=== PATIENT | female | born 1990 | race Caucasian/White ===

== ENCOUNTER → 2017-07-18 11:41 | Outpatient (CLI) | payer MEDICAID, SELFPAY ==
[2017-07-18 13:44] LABS: Color, Urine Yellow (Yellow); Glucose, Dipstick Normal (Normal); Ketone-Dipstick Negative (Negative); Leukocyte Esterase-Dipstick Negative /ul (Negative); Nitrite-Dipstick Negative (Negative); Occult Blood-Urine 10 /ul (Negative); Protein-Dipstick Negative (Negative); Urine Bilirubin Dipstick Negative (Negative); Urine Clarity Sl. Cloudy (Clear); Urine Urobilinogen Normal (Normal)
[2017-07-18 14:00] LABS: Amphetamine Urine VISTA NEGATIVE (<1000 ng/mL); Barbiturate Urine VISTA NEGATIVE (< 200 ng/mL); Benzodiazepine Urine VISTA NEGATIVE (< 200 ng/mL); Cocaine Urine VISTA NEGATIVE (< 300 ng/mL); Ecstacy Urine VISTA NEGATIVE (< 500 ng/mL); Methadone Urine VISTA NEGATIVE (< 300 ng/mL); PCP Urine VISTA NEGATIVE (< 25 ng/mL); THC Urine VISTA NEGATIVE (< 50 ng/mL); Vista UDS pH Range 6
[2017-07-18 14:21] LABS: COTININE Drug Screen Negative (<200 ng/mL)
[2017-07-18 17:02] LABS: Absolute Lymphocyte Count 3.49 X10^3/ul (0.83-4.51); Absolute Neutrophil Count 6.9 X10^3/uL (2.0-7.7); Basophil# 0.03 X10^3/uL; Basophil% 0.3 % (0-1); Eosinophil# 0.08 X10^3/uL; Eosinophils% 0.7 % (0-5); Hematocrit 40.7 % (37-47); Hemoglobin 14.1 g/dl (12.0-15.0); Lymphocyte # 3.49 X10^3/ul (4.0); Lymphocyte % 30.7 % (19-41); Mean Corp Hgb Conc 34.6 g/gl (32-36); Mean Corpuscular Hgb 31.8 pg (27.0-32.0); Mean Corpuscular Volume 91.7 fL (81-99); Mean Platelet Vol. 11.6 fl (6.2-12.0); Monocyte# 0.79 X10^3/uL; Neutrophil # 6.88 X10^3/uL (2.7-7.7); Neutrophil % 60.6 % (47-70); Platelet Count 288 K/mm3 (150-450); RBC Distribution Width CV 12.7 % (11.6-14.6); RBC Distribution Width SD 41.5 fl (35.1-43.9); Red Blood Count 4.44 M/mm3 (4.2-5.4); White Blood Count 11.4 K/mm3 (4.4-11.0)
[2017-07-18 17:06] LABS: POSITIVE COUNT NO; POSITIVE DIFFERENTIAL NO; POSITIVE MORPHOLOGY NO
[2017-07-18 17:24] LABS: ALB/GLOB Ratio 0.8 RATIO (0.9-2.4); AST(SGOT) 14 U/L (15-37); Alanine Aminotransfer ALT/SGPT 19 U/L (12-78); Albumin, Serum 3.2 g/dL (3.4-5.0); Alkaline Phosphatase 72 U/L (45-117); Anion Gap 10 (5-15); BUN 7 mg/dL (7-18); BUN/Creat Ratio 13.9 RATIO (10-20); Calcium,Total 8.9 mg/dL (8.5-10.1); Chloride 105 mmol/L (98-107); EST Glomerular Filtration Rate 159 mL/min (>60); Est Glom Filt Rate - Afr Amer 192 mL/min (>60); Glucose 78 mg/dL (70-110); Potassium 3.9 mmol/L (3.5-5.1); Protein, Total 7.2 g/dL (6.4-8.2); Sodium Level 136 mmol/L (136-145); Thyroid Stim Hormone (TSH) 1.72 uIU/mL (0.358-3.74)
[2017-07-18 17:26] LABS: Hemoglobin A1c 5.7 % (4.2-6.3)
[2017-07-18 18:12] LABS: HIV - WCH Non-Reactive (Nonreactive); Vitamin D,25 Hydroxy 12.4 ng/mL
[2017-07-18 18:20] LABS: Chlamydia Trachomatis by PCR Negative (Negative); Neisserai gonorrhoeae by PCR Negative (Negative); Probe Check PASS; Sample Adequacy Control PASS; Specimen Processing Control PASS
[2017-07-22 10:31] LABS: HEPATITIS B SURFACE AG Negative (Negative); Hep C Antibodies 0.1 s/co ratio (0.0-0.9)
[2017-07-25 03:55] LABS: Prenatal RPR NONREACTIVE (NONREACTIVE)
== END ==
PROVIDERS: Visit Provider Obstetrics & Gynecology
DX: Z34.81 Encounter for supervision of other normal pregnancy, first trimester (principal)
CPT/HCPCS: 36415; 80053; 80307; 81002; 82306; 83036; 84443; 85025; 86703; 86762; 86803; 87340; 87491; 87591

== ENCOUNTER 2017-07-31 04:13 | Emergency (ER) | payer MEDICAID, SELFPAY ==
[2017-07-31 04:14] VITALS: BP 144/103; PULSE 100; RESP 16; TEMP 36.4; O2SAT 100; BMI 41.3
--- NOTE | 2017-07-31 04:30 | ED.DCSUM_ITS ---
- ER Visit Summary Date of Service: 07/31/17 Chief Complaint: Left flank pain History of Present Illness: The patient is a 26 F who is 12-13 weeks, woke up in the middle of the night to urinate, and had the sudden onset of left flank pain followed by nausea/vomiting. The pain has been colicky. Less than 1 hour. No urinary symptoms otherwise. No diarrhea. No recent vaginal bleeding or discharge. Never had this before. No recent injury or trauma. Pain radiates into the left groin. Has already had 2 ultrasounds verifying that this is intrauterine. Physical Examination: Uncomfortable, in painful distress, standing at the bedside hunched over onto the bed. Vital signs are unremarkable except for hypertension. Mild left CVA tenderness. Mild left mid abdominal tenderness otherwise benign. No pelvic tenderness, although that is where she is holding. Test Results: Urinalysis shows 250 blood, negative nitrite, 25 leukocyte esterase, with 10-25 red blood cells and 5-10 white blood cells. Emergency Department Course and Treatment: Her sudden onset of severe colicky flank pain radiating into the groin and presence of mostly blood in the urine is classic for ureterolithiasis. Given that she is , and ultrasound is not available at this time, no imaging performed. Diagnosis is made clinically. Avoiding NSAIDs given her . Given morphine, it took the edge off but she was still in pain so she was amenable to another dose. Supportive care advised along with expectant management. Flomax has no data on risk, so I do not recommend it based on its limited evidence for efficacy in helping to pass a stone. Given the location of her pain I do suspect it is a UVJ stone. I recommend hydration and prescribed her Theresa, she is given urine filters and reasons to return to the ER. Do not suspect that her urinalysis represents an infection. 5-10 white blood cells could easily be seen only with blood in the urine. Treatment Plan: Supportive as above, expectant management Disposition: Discharge home Impression: Acute left renal colic This note was generated with [employer] dictation software. It may contain incorrect words, spelling, and punctuation that were not noted in review of the chart prior to signing ED Disposition - Plan for ED Patient: Disposition: Home or Assisted Living Chief Complaint: Back Instructions: ED Stone Renal W Colic, ED Strainer Urine Prescriptions: Ondansetron [Zofran] 8 mg PO Q8H PRN #12 tab PRN Reason: Nausea Hydrocodone Bitart/Apap 5-325 [Theresa 5/325] 1 - 2 tab PO Q6H PRN 3 Days #15 tab PRN Reason: Pain Referrals: Cornell Kwan MD [STAFF PHYSICIAN] - 1 Week if not improving
[2017-07-31] MEDS: Ondansetron ODT 4 MG Tablet 8 MG PO (04:32)
[2017-07-31 04:40] LABS: Color, Urine Yellow (Yellow); Glucose, Dipstick Normal (Normal); Ketone-Dipstick Negative (Negative); Leukocyte Esterase-Dipstick 25 /ul (Negative); Nitrite-Dipstick Negative (Negative); Occult Blood-Urine 250 /ul (Negative); Protein-Dipstick 30 mg/dl (Negative); Urine Bilirubin Dipstick Negative (Negative); Urine Clarity Cloudy (Clear); Urine Urobilinogen Normal (Normal)
[2017-07-31 04:46] LABS: Bacteria RARE /hpf (None Seen); Mucous, Urine 1+ /hpf (<or=2+); Squamous Epithelial Cells - UA 0-5 SEEN /hpf (5-10); White Blood Cells 5-10 SEEN /hpf (0-5)
[2017-07-31 04:47] LABS: Red Blood Cells-Urine 10-25 SEEN /hpf (0-5)
[2017-07-31 05:45] VITALS: BP 149/89; PULSE 87; RESP 18; O2SAT 98
== END 2017-07-31 05:47 | disposition home or self-care (01) ==
PROVIDERS: Emergency Provider Emergency Medicine
DX: O99.89 Other specified diseases and conditions complicating pregnancy, childbirth and the puerperium (principal); N20.0 Calculus of kidney; O99.211 Obesity complicating pregnancy, first trimester; E66.9 Obesity, unspecified; Z68.41 Body mass index [BMI] 40.0-44.9, adult; Z3A.00 Weeks of gestation of pregnancy not specified
CPT/HCPCS: 81001; 96372; 99282

== ENCOUNTER 2017-08-30 16:17 | Emergency (ER) | payer MEDICAID, SELFPAY ==
[2017-08-30 16:18] VITALS: BP 118/76; PULSE 131; RESP 17; TEMP 37.7; O2SAT 99; BMI 40.4
--- NOTE | 2017-08-30 18:03 | ED.VISSUMM ---
- ER Visit Summary Date of Service: 08/30/17 Chief Complaint: Sore throat History of Present Illness: The patient is a 26 F has had a sore throat since yesterday. It hurts worse with swallowing. She does admit some nasal congestion. She denies a cough. She denies a fever. She did nothing for it at home. She is currently 17 weeks gestation Physical Examination: Vital signs reviewed. HEENT exam reveals posterior oropharyngeal erythema. Tonsils are surgically absent. Heart is regular. Lungs are clear. Abdomen is soft. Neurologic exam normal Test Results: Rapid strep negative Emergency Department Course and Treatment: Patient will be treated with Cepacol lozenges at home. She will follow-up with her OB Treatment Plan: [] Disposition: Discharge Impression: Pharyngitis This note was generated with [employer] dictation software. It may contain incorrect words, spelling, and punctuation that were not noted in review of the chart prior to signing ED Disposition - Plan for ED Patient: Chief Complaint: Sore Throat Referrals: Care Physician,No Primary [Primary Care Provider] -
--- NOTE | 2017-08-30 18:05 | ED.DEP ---
ED Disposition - Plan for ED Patient: Disposition: Home or Assisted Living Chief Complaint: Sore Throat Instructions: ED Pharyngitis Viral Prescriptions: Benzocaine/Menthol [Cepacol Sore Throat Lozenge] 1 ea MM Q4H PRN PRN #60 linda PRN Reason: Sore Throat Referrals: Care Physician,No Primary [Primary Care Provider] -
[2017-08-30 18:16] VITALS: PULSE 98; RESP 16
== END 2017-08-30 18:17 | disposition home or self-care (01) ==
PROVIDERS: Emergency Provider Emergency Medicine
DX: O99.512 Diseases of the respiratory system complicating pregnancy, second trimester (principal); O99.332 Smoking (tobacco) complicating pregnancy, second trimester; Z3A.17 17 weeks gestation of pregnancy; J02.9 Acute pharyngitis, unspecified
CPT/HCPCS: 87880; 99282

== ENCOUNTER → 2017-10-17 15:28 | Outpatient (CLI) | payer MEDICAID, SELFPAY ==
[2017-10-17 16:57] LABS: Hematocrit 38.8 % (37-47); Hemoglobin 12.9 g/dl (12.0-15.0); Mean Corp Hgb Conc 33.2 g/gl (32-36); Mean Corpuscular Hgb 30.9 pg (27.0-32.0); Mean Platelet Vol. 10.7 fl (6.2-12.0); Platelet Count 306 K/mm3 (150-450); RBC Distribution Width CV 12.9 % (11.6-14.6); RBC Distribution Width SD 43.3 fl (35.1-43.9); Red Blood Count 4.17 M/mm3 (4.2-5.4); White Blood Count 11.5 K/mm3 (4.4-11.0)
[2017-10-17 17:05] LABS: Scan Indicated on CBC? Y/N NO
[2017-10-17 17:15] LABS: Prothrombin Time (Protime)PT. 13.3 SECONDS (11.7-14.9)
[2017-10-17 17:27] LABS: Hemoglobin A1c 5.7 % (4.2-6.3)
[2017-10-17 17:36] LABS: Amphetamine Urine VISTA NEGATIVE (<1000 ng/mL); Barbiturate Urine VISTA NEGATIVE (< 200 ng/mL); Benzodiazepine Urine VISTA NEGATIVE (< 200 ng/mL); Cocaine Urine VISTA NEGATIVE (< 300 ng/mL); Ecstacy Urine VISTA NEGATIVE (< 500 ng/mL); Methadone Urine VISTA NEGATIVE (< 300 ng/mL); PCP Urine VISTA NEGATIVE (< 25 ng/mL); THC Urine VISTA NEGATIVE (< 50 ng/mL); Vista UDS pH Range 6
[2017-10-18 10:42] LABS: Kleihauer-Betke Negative
== END ==
PROVIDERS: Visit Provider Obstetrics & Gynecology
DX: O31.20X0 Continuing pregnancy after intrauterine death of one fetus or more, unspecified trimester, not applicable or unspecified (principal); O36.4XX0 Maternal care for intrauterine death, not applicable or unspecified; Z3A.00 Weeks of gestation of pregnancy not specified
CPT/HCPCS: 36415; 80307; 81240; 81241; 81291; 83036; 85027; 85460; 85610; 86850

== ENCOUNTER 2017-10-23 06:55 | Inpatient (IN) | payer MEDICAID, SELFPAY ==
[2017-10-23] MEDS: 0.9% Saline Lock 10 ML Syringe IV (07:55)
[2017-10-23] MEDS: miSOPROStol 200 MCG Tablet 400 MCG VAGINAL ×3 (08:13→17:30)
[2017-10-23 08:24] LABS: Hematocrit 36.4 % (37-47); Hemoglobin 12.6 g/dl (12.0-15.0); Mean Corp Hgb Conc 34.6 g/gl (32-36); Mean Corpuscular Hgb 32.1 pg (27.0-32.0); Mean Corpuscular Volume 92.6 fL (81-99); Mean Platelet Vol. 10.7 fl (6.2-12.0); Platelet Count 269 K/mm3 (150-450); RBC Distribution Width CV 12.5 % (11.6-14.6); RBC Distribution Width SD 41.4 fl (35.1-43.9); Red Blood Count 3.93 M/mm3 (4.2-5.4); White Blood Count 9.9 K/mm3 (4.4-11.0)
[2017-10-23 08:25] LABS: Scan Indicated on CBC? Y/N NO
[2017-10-23 08:38] VITALS: BMI 39.1
[2017-10-23] MEDS: Acetaminophen 325 MG Tablet PO ×2 (12:25→23:27)
[2017-10-23] MEDS: FLUCONAZOLE 150 MG TABLET PO (13:12)
[2017-10-23] MEDS: Lactated Ringers 1,000 ML 50 ML IV ×2 (15:00→16:00)
--- NOTE | 2017-10-23 18:08 | PCM.PN.BLA ---
Progress Note LABOR PROGRESS NOTE Relates contractions are more intense. She is considering an epidural, but not ready yet. No fluid leaking or vaginal bleeding. Tm 100.9, Tc GEN - NAD, AAO x 3 ABD - soft, nontender, nondistended, gravid SVE - ft/60/-5, midposition, moderate A/P: 26yo with 20 week IUFD at 24 5/7wga with maternal fever -Cytotec 400mcg placed per vagina -IV Gent/Amp started for possible chorioamnionitis, fever may also be due to cytotec but cannot r/o. Reviewed antibiotic indications with patient and family.
[2017-10-23] MEDS: miSOPROStol 100 MCG TABLET 400 MCG VAGINAL (21:28)
[2017-10-23] MEDS: fentaNYL-bupivacaine (epidural) 100 ML BAG EPIDURAL (21:30)
--- NOTE | 2017-10-24 00:10 | PCM.OB.VAG ---
- Problem List (1) 24 weeks gestation of Status: Acute (2) Intrauterine at 20 weeks or more of gestation Status: Acute (3) Maternal fever during labor Status: Acute Vaginal Delivery Maternal Presentation: Medically Indicated Induction IUFD Method of Induction: Cytotec Medical Reason for Induction: demise Amniotic Membrane Rupture Type: Spontaneous Rupture of Membrane time: 2310h 10/23/17 Amniotic Fluid Description: - - Brown and opaque Final ABIOLA: 02/07/18 Gestational age: 24 Weeks and 6 Days Date of Procedure: 10/24/17 Pre-Operative Diagnosis: 24 6/7wga, IUFD, maternal fever Post-Operative Diagnosis: 24 6/7wga, IUFD, maternal fever Surgery/ Procedure Performed: Spontaneous Vaginal Delivery Anesthesiologist: Catie Rosales Type of Anesthesia: Epidural Description of Procedure: Informed by RN that patient ready to deliver. On my arrival to bedside the amnionic sac was mostly delivered with infant visible through membranes. On lifting the bag ruptured spontaneously with brown colored fluid. The cord was doubly clamped and cut. The infant appeared morphologically normal by my examination with no gross defects. The was swaddled and passed to her mother. The placenta subsequently delivered with maternal expulsive efforts after approximately 1.5 hours. It appeared intact on inspection. Perineum intact. Tissue specimen was collected from membranes and umbilical cord for Anora genetic testing. Presentation: Vertex Placental Delivery Description: Spontaneous Placenta Disposition: Sent to Pathology Cord Entanglement: None Drain: Man to straight drain A gender: Female (1 minute): 0 (5 minute): 0 Episiotomy Description: None Laceration: None Complications: - - IV Gentamicin and Ampicillin administered given persistent maternal fever
[2017-10-24 00:15] VITALS: BP 101/55; PULSE 99; RESP 17; TEMP 38.6
--- NOTE | 2017-10-24 01:34 | PLAC_PTH ---
PATIENT: LEIDA MURDOCK LOC: [facility] U#:[id number] AGE/SX: 26/F ROOM: WP021 RE10/23/[address]: Dr. Brionna Maynard MD : 1990 BED: 1 DIS: 10/24/2017 SPEC #: [id number] RECD: 10/24/17 03:39 STATUS: NEREIDA REMarshall #: [id number] DINORA: 10/24/17 01:[address]: Brionna Rodriguez DEPT: SURGICAL PATHOLOGY RECD BY: Charlie Mota ENTERED: 10/24/17 07:55 SP TYPE: PLACENTA OTHR DR: Mai Primary Care Phys Tissues: Placenta, NOS Procedures: Surgery Specimen Level IV HEADER OPERATION: Vaginal delivery PRE-OP DIAGNOSIS: IUFD measuring 20-21wga at 24 weeks TISSUE SUBMITTED: Amnionic membranes and umbical cord tissue MICROSCOPIC DIAGNOSIS Placenta: Placental disc ? immature placenta (102 gm), clinically 20-21 weeks gestational age. Membranes - no pathologic diagnosis. See comment. SJ:rg 10/27/17 COMMENT Umbilical cord is not identified in the submitted specimen. Only a stump of umbilical cord is noted at the surface of the placental disc. Number of vessels cannot be assessed. The results of cytogenetic study will be reported later as an addendum. MICROSCOPIC DESCRIPTION Slides are reviewed. GROSS DESCRIPTION Received is one container labeled with the patient's name and not further designated. The specimen is received fresh and consists of placental disc with attached membrane and also detached fragment of membrane. No umbilical cord is noted. Only the stump of the umbilical cord is noted. The membranes are sampson, mucoidy. The umbilical cord is inserted paracentrally. The rest of the umbilical cord cannot be assessed as very minimal portion of attached umbilical cord is present. A few blood clots are noted on the maternal surface weighing 9 gm and measuring in aggregate 4 x 3.5 x 2 cm. The body of the placenta weighs 102 gm and measures 12 x 10 x 1.5 cm. The maternal surface is red-maroon with minimal caudal ligaments. A section is submitted for cytogenetic studies (Charlie Mota). Sections do not reveal any mass lesion. [place] sections are submitted in four cassettes as follows: 1 ? membrane and portion of umbilical cord stump, 2-4 ? placenta including maternal and surfaces. / SJ:rg 10/24/17 TC: 5 CPT: 92363 ADDENDUM ADDENDUM ADDENDUM ADDENDUM ADDENDUM ADDENDUM ADDENDUM ADDENDUM ADDENDUM ADDENDUM ADDENDUM 12/08/2017 13:10 ADDENDUM 12/08/2017 13:10 ADDENDUM 12/08/2017 13:10 ADDENDUM 12/08/2017 13:10 ADDENDUM 12/08/2017 13:10 CHROMOSOME POC RFX ELECTRIC BLASTING CAP ASSEMBL[facility] CY[facility]GENETIC RESULT: No growth INTERPRETATION: None of the cultures set up from the biopsy submitted showed fibroblast migration or proliferation, often due to low viability in the tissue received. Thus, a cytogenetic analysis was not possible. Please see complete report in e-chart or EMR for further details
--- NOTE | 2017-10-24 02:29 | NURSING ---
demise delivered 10/23/17 at 2310 Wt= 299GM/ or 10.5 oz Length= 10 inches Bereavement supplies given to patient. This nurse took several pictures of patient and family with infant.
[2017-10-24 03:50] LABS: Pathology Specimen OB SEE PATHOLOGY REPORT
[2017-10-24 04:00] VITALS: PULSE 80; RESP 18; TEMP 37.1
[2017-10-24 08:45] VITALS: BP 111/67; PULSE 85; RESP 18; TEMP 36.4
--- NOTE | 2017-10-24 11:01 | DCINST_ITS ---
Discharge Diet: No Restrictions Discharge Activity: Return to Normal Activity, May Shower, May Take a Tub Bath May resume sexual activity in: 4-6 weeks Call your doctor if you observe: Fever of 101 or Higher, Inability to urinate, Inability to have a bowel movement, Using more than one pad per hour, Shortness of breath, Chest pain, Calf discomfort, Uncontrolled pain Additional Instructions: If you experience any of the following, contact your healthcare provider. * Bleeding that soaks a pad every hour for 2 hours * Fever 100.4 or higher * Unrelieved incision or abdominal pain * Swelling, redness, discharge or bleeding from your incision or episiotomy site * Your incision begins to separate * Problems urinating (including inability to urinate or burning while urinating) . * Visual changes * Severe headache * Flu-like symptoms * Pain or redness in one of both of your breasts * Pain, warmth, tenderness or swelling in your legs, especially the calf area * Frequent nausea and vomiting * Symptoms of depression or anxiety If you experience any of the following, call 911 or go to the nearest Emergency Room. * Chest pain * Problems breathing * Seizure activity * Partial or complete paralysis of a body part, slurred speech, weakness or drooping of the face, or a sudden inability to walk or hold your balance Allergies/Adverse Reactions: Allergies No Known Allergies Allergy (Verified 08/30/17 16:20) Medications to take at Discharge Vit No.130/Iron/FA [ Tablet] 1 each PO DAILY 09/29/16 Cholecalciferol (Vitamin D3) [Vitamin D3] 5,000 unit PO DAILY 10/23/17 Ibuprofen 600 mg PO TID PRN #330 tab 10/24/17 The following prescriptions were given: Ibuprofen 600 mg PO TID PRN #330 tab PRN Reason: Pain Please Follow Up With: Brionna Chandra MD When: 7-10 days Primary Care Physician: Care Physician,No Primary [Primary Care Provider] -
--- NOTE | 2017-10-24 11:10 | NURSING ---
Pt. d/c'd to home with after verbal d/c instructions given and reviewing Caring for Yourself After A Loss pamphlet, and pt. verbalized understanding. Pt. tearful at times throughout morning. Very eager to hold infant and morris with , talking about infant and features. Family in room, supportive. Pt. aware of KAsher not available today, aware she may call at beginning of week, and she is agreeable to this. Given info on Support Group. Discussed pt. with Sary from , and all ok with pt. being called next week. Deborah picked up by Madi Velazco and Dana from [facility].
== END 2017-10-24 11:10 | disposition home or self-care (01) | DRG 372 ==
PROVIDERS: Admitting Provider Obstetrics & Gynecology; Visit Provider Obstetrics & Gynecology
DX: O36.4XX0 Maternal care for intrauterine death, not applicable or unspecified (principal); O75.2 Pyrexia during labor, not elsewhere classified; O42.012 Preterm premature rupture of membranes, onset of labor within 24 hours of rupture, second trimester; O34.82 Maternal care for other abnormalities of pelvic organs, second trimester; E28.2 Polycystic ovarian syndrome; O99.334 Smoking (tobacco) complicating childbirth; Z3A.24 24 weeks gestation of pregnancy; Z37.1 Single stillbirth
CPT/HCPCS: 85027; 86850; 86900; 88305; 88307; 99218; J7120; A4216; G0378

== ENCOUNTER → 2017-10-31 15:19 | Outpatient (CLI) | payer MEDICAID, SELFPAY ==
[2017-10-31 16:24] LABS: Vitamin B12 521 pg/mL (211-911); Vitamin D,25 Hydroxy 27.4 ng/mL (29.95-100.01)
[2017-10-31 16:45] LABS: Homocysteine 6.6 umol/L (3.2-10.7)
[2017-11-05 11:11] LABS: Methylmalonic Acid Bld 142 nmol/L (0-378)
== END ==
PROVIDERS: Visit Provider Obstetrics & Gynecology
DX: E72.12 Methylenetetrahydrofolate reductase deficiency (principal); N96 Recurrent pregnancy loss
CPT/HCPCS: 36415; 82306; 82607; 82746; 83090; 83921

== ENCOUNTER 2017-11-07 23:27 | Emergency (ER) | payer MEDICAID, SELFPAY ==
[2017-11-07 23:28] VITALS: BP 147/105; PULSE 87; RESP 16; TEMP 36.5; BMI 38.9
--- NOTE | 2017-11-07 23:47 | ED.DCSUM_ITS ---
- ER Visit Summary Date of Service: 11/07/17 Chief Complaint: Painful bumps dorsal surface left hand History of Present Illness: The patient is a 27 F who had a stillbirth October 23, 2017. Gestation was 20 weeks and gestation by dates was 24 weeks 6 days. She had a vaginal spontaneous delivery. Based on Dr. Pema Maynard's description there was no obvious congenital defect. Appropriate studies were sent to determine if there was any genetic abnormality. Mother is presently on aspirin for MT HFR. She denies fever, chills night sweats. She denies any blurred vision, loss of vision or double vision. She has trouble with speech or swallowing. She denies ringing in her ears. She denies chest pain or back pain. She denies shortness of breath or difficulty breathing. She denies nausea, vomiting diarrhea. She has no urologic symptoms. She denies any low back pain. She denies any swelling of her ankles. She does not have history of hypertension. Physical Examination: Blood pressure is 147/105. Blood pressure at the time of discharge was 101/55-100 11/67. Head is atraumatic normocephalic. Pupils are equal round reactive. Extraocular muscles are intact. TMs are pearly white with landmarks noted. Nares patent with no drainage. Posterior pharynx without erythema or exudate. Uvula is midline. There is no dysphonia or dysphasia. Trachea is midline. There is no stridor with auscultation of the neck. Heart is regular without murmur, gallop or rub. S1 and S2 are normal. Lungs are clear to auscultation with good movement of air bilaterally. Abdomen is soft nontender. Bowel sounds are present normal. There is no pedal edema. Patient is alert and oriented ?3. Motor is 5 over 5. Sensory is intact. DTRs are symmetric but brisk with no clonus or Babinski sign. Cranial 2 through 12 are intact. Cerebellar testing is normal. Examination of the left hand reveals superficial phlebitis. Nurse informed that she has a rash. Patient was examined she has minimal folliculitis. She has a pustular rash and in the middle of some of the pustules there is a hair follicle. Test Results: Lab results are pending at the time of this dictation. Emergency Department Course and Treatment: Since there is greater than 30 rise in systolic and diastolic pressure will obtain appropriate workup for preeclampsia. Treatment Plan: Repeat vital signs and reevaluation Disposition: Disposition to be made by Dr. Clayton Prado. Impression: 1. Post hypertension/PIH 2. Superficial thrombophlebitis dorsum left hand This note was generated with [employer] dictation software. It may contain incorrect words, spelling, and punctuation that were not noted in review of the chart prior to signing ED Disposition - Plan for ED Patient: Chief Complaint: Wound Check Referrals: Care Physician,No Primary [Primary Care Provider] -
[2017-11-08 00:05] LABS: Color, Urine Yellow (Yellow); Glucose, Dipstick Normal (Normal); Ketone-Dipstick Negative (Negative); Leukocyte Esterase-Dipstick 25 /ul (Negative); Nitrite-Dipstick Negative (Negative); Occult Blood-Urine 250 /ul (Negative); Protein-Dipstick 15 mg/dl (Negative); Specific Gravity, Urine 1.025 (1.002-1.030); Urine Bilirubin Dipstick Negative (Negative); Urine Clarity Sl. Cloudy (Clear); Urine Urobilinogen Normal (Normal)
[2017-11-08 00:11] LABS: Amorphous Sediment 1+; Bacteria RARE /hpf (None Seen); Squamous Epithelial Cells - UA 0-5 SEEN /hpf (5-10); White Blood Cells 0-5 SEEN /hpf (0-5)
[2017-11-08 00:11] LABS: Absolute Lymphocyte Count 4.85 X10^3/ul (0.83-4.51); Absolute Neutrophil Count 7.2 X10^3/uL (2.0-7.7); Basophil# 0.06 X10^3/uL; Basophil% 0.5 % (0-1); Eosinophil# 0.23 X10^3/uL; Eosinophils% 1.7 % (0-5); Hematocrit 43.1 % (37-47); Hemoglobin 14.9 g/dl (12.0-15.0); Lymphocyte # 4.85 X10^3/ul (4.0); Lymphocyte % 36.5 % (19-41); Mean Corp Hgb Conc 34.6 g/gl (32-36); Mean Corpuscular Hgb 32.3 pg (27.0-32.0); Mean Corpuscular Volume 93.5 fL (81-99); Mean Platelet Vol. 10.8 fl (6.2-12.0); Monocyte# 0.91 X10^3/uL; Monocyte% 6.9 % (0-10); Neutrophil # 7.15 X10^3/uL (2.7-7.7); Neutrophil % 53.9 % (47-70); Platelet Count 367 K/mm3 (150-450); RBC Distribution Width CV 12.2 % (11.6-14.6); RBC Distribution Width SD 41.1 fl (35.1-43.9); Red Blood Count 4.61 M/mm3 (4.2-5.4); White Blood Count 13.3 K/mm3 (4.4-11.0)
[2017-11-08 00:12] LABS: Mucous, Urine 1+ /hpf (<or=2+); Red Blood Cells-Urine 0-5 SEEN /hpf (0-5)
[2017-11-08 00:13] VITALS: BP 126/90; PULSE 73; RESP 18; O2SAT 97
[2017-11-08 00:20] LABS: POSITIVE COUNT NO; POSITIVE DIFFERENTIAL NO; POSITIVE MORPHOLOGY NO
[2017-11-08 00:25] VITALS: BP 114/84; PULSE 80; RESP 16; O2SAT 96
[2017-11-08 00:30] LABS: AST(SGOT) 14 U/L (15-37); Alanine Aminotransfer ALT/SGPT 16 U/L (13-56); Albumin, Serum 3.5 g/dL (3.2-5.0); Alkaline Phosphatase 98 U/L (45-117); Anion Gap 3 (5-15); BUN 12 mg/dL (7-18); BUN/Creat Ratio 13.6 RATIO (10-20); Bilirubin, Direct < 0.05 mg/dL (0.00-0.30); Calcium,Total 8.7 mg/dL (8.5-10.1); Chloride 106 mmol/L (98-107); Creatinine, Serum 0.88 mg/dL (0.55-1.02); EST Glomerular Filtration Rate 83 mL/min (>60); Est Glom Filt Rate - Afr Amer 100 mL/min (>60); Estimated Creatinine Clearance 95.03 ml/min; Globulin 3.7 g/dL (2.2-4.2); Glucose 95 mg/dL (74-106); Potassium 3.9 mmol/L (3.5-5.1); Protein, Total 7.2 g/dL (6.4-8.2); Sodium Level 140 mmol/L (136-145); Total Bilirubin < 0.10 mg/dL (0.20-1.00)
--- NOTE | 2017-11-08 00:52 | ED.DEP ---
ED Disposition - Plan for ED Patient: Disposition: Home or Assisted Living Chief Complaint: Wound Check Instructions: ED Phlebitis Superficial Referrals: Care Physician,No Primary [Primary Care Provider] - Brionna Chandra MD [STAFF PHYSICIAN] -
[2017-11-08 01:07] VITALS: BP 110/76; PULSE 85; RESP 16; O2SAT 95
== END 2017-11-08 01:08 | disposition home or self-care (01) ==
PROVIDERS: Emergency Medicine; Emergency Provider Emergency Medicine
DX: I80.8 Phlebitis and thrombophlebitis of other sites (principal); O13.5 Gestational [pregnancy-induced] hypertension without significant proteinuria, complicating the puerperium; E72.12 Methylenetetrahydrofolate reductase deficiency; Z79.82 Long term (current) use of aspirin
CPT/HCPCS: 80048; 80076; 81001; 84550; 85025; 99283; A4216

== ENCOUNTER → 2017-11-18 14:54 | Outpatient (CLI) | payer MEDICAID, SELFPAY ==
[2017-11-22 14:56] LABS: Beta-2-Glycoprotein I IgA <9 (0-25); Beta-2-Glycoprotein I IgG <9 (0-20); Beta-2-Glycoprotein I IgM <9 (0-32)
== END ==
PROVIDERS: Family Provider Family Medicine; PCP Family Medicine
DX: R76.0 Raised antibody titer (principal)
CPT/HCPCS: 36415; 86146

== ENCOUNTER → 2017-11-19 06:50 | Outpatient (CLI) | payer MEDICAID, SELFPAY ==
[2017-11-19 08:39] LABS: Hemoglobin A1c 5.7 % (4.2-6.3)
[2017-11-19 08:50] LABS: Vitamin D,25 Hydroxy 23.3 ng/mL (29.95-100.01)
== END ==
PROVIDERS: Family Provider Family Medicine; PCP Family Medicine
DX: E28.2 Polycystic ovarian syndrome (principal); E55.9 Vitamin D deficiency, unspecified
CPT/HCPCS: 36415; 82306; 83036

== ENCOUNTER 2017-11-29 17:07 | Emergency (ER) | payer MEDICAID, SELFPAY ==
--- NOTE | 2017-11-29 17:07 | DT_ITS ---
This patient was seen during an EMR downtime November 24, 2017 - December 01, 2017. This patient may have a combination of paper and electronic documentation or all paper documentation. All documentation is viewable within the e-chart portion of [employer] for each patient visit.
--- NOTE | 2017-11-29 17:43 | RAD_ITS ---
STUDY: X-RAY CHEST REASON FOR EXAM: Female, 27 years old. Cough and fever. TECHNIQUE: PA and lateral views of the chest. COMPARISON: None. FINDINGS: The lungs are incompletely expanded, and there is mild basilar crowding. No consolidating infiltrate. There is no demonstrated pleural abnormality. Normal size heart. Normal mediastinum and makeda. Normal visualized pulmonary arteries. Normal visualized aortic arch and descending thoracic aorta. Normal visualized thoracic spine. Normal visualized ribs, clavicles, and shoulders. There is no demonstrated abnormality of the visualized soft tissue structures of the upper abdomen. RAD/Chest PA and Lateral IMPRESSION: Suboptimal inspiratory effort with basilar crowding. No consolidating infiltrate or CHF. Electronically Signed: Yamil Gambino MD at 18:18 EDT , Service support ,
[2017-12-02 06:37] LABS: Mucous, Urine 0 SEEN /hpf (<or=2+)
[2017-12-02 06:59] LABS: Color, Urine Red (Yellow); Glucose, Dipstick NEGATIVE (Normal); Urine Bilirubin Dipstick Negative (Negative); Urine Clarity Cloudy (Clear)
[2017-12-02 07:00] LABS: Bacteria 1+ /hpf (None Seen); Ketone-Dipstick 5 mg/dl (Negative); Leukocyte Esterase-Dipstick 100 /ul (Negative); Nitrite-Dipstick Negative (Negative); Occult Blood-Urine 250 /ul (Negative); Protein-Dipstick 100 mg/dl (Negative); Red Blood Cells-Urine > 100 SEEN /hpf (0-5); Specific Gravity, Urine 1.015 (1.002-1.030); Squamous Epithelial Cells - UA 0-5 SEEN /hpf (5-10); Urine Urobilinogen 1 mg/dl (Normal); White Blood Cells 0-5 SEEN /hpf (0-5)
[2017-12-02 16:47] LABS: BUN 11 mg/dL (7-18); BUN/Creat Ratio 12.2 RATIO (10-20); EST Glomerular Filtration Rate 81 mL/min (>60); Est Glom Filt Rate - Afr Amer 98 mL/min (>60); Glucose 125 mg/dL (74-106)
[2017-12-02 16:49] LABS: AST(SGOT) 11 U/L (15-37); Alanine Aminotransfer ALT/SGPT 16 U/L (13-56); Albumin, Serum 3.3 g/dL (3.2-5.0); Alkaline Phosphatase 99 U/L (45-117); Calcium,Total 8.7 mg/dL (8.5-10.1)
[2017-12-02 16:50] LABS: Anion Gap 9 (5-15); Chloride 104 mmol/L (98-107); Potassium 3.1 mmol/L (3.5-5.1); Sodium Level 139 mmol/L (136-145)
[2017-12-02 16:54] LABS: Pregnancy, Serum, hCG Quali. NEGATIVE Negative (0-9 Nonpreg)
[2017-12-02 20:51] LABS: Basophil% 0.2 % (0-1); Eosinophils% 0.2 % (0-5); Hematocrit 43.1 % (37-47); Hemoglobin 14.6 g/dl (12.0-15.0); Lymphocyte % 14.3 % (19-41); Mean Corp Hgb Conc 33.9 g/gl (32-36); Mean Corpuscular Hgb 31.2 pg (27.0-32.0); Mean Corpuscular Volume 92.1 fL (81-99); Mean Platelet Vol. 10.2 fl (6.2-12.0); Monocyte% 7.8 % (0-10); Neutrophil % 77.3 % (47-70); POSITIVE COUNT NO; POSITIVE DIFFERENTIAL NO; POSITIVE MORPHOLOGY NO; Platelet Count 254 K/mm3 (150-450); RBC Distribution Width SD 43.5 fl (35.1-43.9); Red Blood Count 4.68 M/mm3 (4.2-5.4); White Blood Count 16.6 K/mm3 (4.4-11.0)
[2017-12-02 20:52] LABS: Absolute Lymphocyte Count 2.37 X10^3/ul (0.83-4.51); Absolute Neutrophil Count 12.9 X10^3/uL (2.0-7.7); Basophil# 0.03 X10^3/uL; Eosinophil# 0.03 X10^3/uL; Lymphocyte # 2.37 X10^3/ul (4.0); Neutrophil # 12.86 X10^3/uL (2.7-7.7)
== END 2017-11-29 19:40 | disposition home or self-care (01) ==
LOC: ED 11-30 14:54
PROVIDERS: Emergency Provider Emergency Medicine; Family Provider Family Medicine; PCP Family Medicine
DX: J02.0 Streptococcal pharyngitis (principal); M79.1 Myalgia; D72.829 Elevated white blood cell count, unspecified; E87.6 Hypokalemia; Z79.2 Long term (current) use of antibiotics; Z79.82 Long term (current) use of aspirin
CPT/HCPCS: 36415; 71046; 80053; 81001; 84703; 85025; 87040; 87086; 96361; 96374; 99284; J7030; A4216; J2405

== ENCOUNTER → 2017-12-01 15:08 | Outpatient (CLI) | payer MEDICAID, SELFPAY ==
--- NOTE | 2017-12-01 15:08 | DT_ITS ---
This patient was seen during an EMR downtime November 24, 2017 - December 01, 2017. This patient may have a combination of paper and electronic documentation or all paper documentation. All documentation is viewable within the e-chart portion of [employer] for each patient visit.
--- NOTE | 2017-12-01 15:10 | VDLE_ITS ---
Reason For Study: LEG PAIN RIGHT LEFT GSV is normal. GSV is normal. CFV is compressible, spontaneous, phasic, CFV is compressible, spontaneous, phasic, competent and demonstrates normal competent, and demonstrates normal augmentation. augmentation. FV is compressible, spontaneous, phasic, FV is compressible, spontaneous, phasic, competent and demonstrates normal competent and demonstrates normal augmentation. augmentation. POP V is compressible, spontaneous, phasic, POP V is compressible, spontaneous, phasic, competent and demonstrates normal competent and demonstrates normal augmentation. augmentation. T/P Trunk is compressible. T/P Trunk is compressible. PTV is compressible. PTV is compressible. RT PerV is compressible. LT PerV is compressible. Procedure Exam performed in department. Interpretation Summary No evidence for acute deep venous thrombosis bilateral lower extremities with patent and compressible bilateral great saphenous veins. Ordering Physician: Domenico Seals Referring Physician: Domenico Seals Performed By: Lily Ramires RVT
== END ==
PROVIDERS: Family Provider Family Medicine; PCP Family Medicine; Visit Provider Emergency Medicine
DX: M79.604 Pain in right leg (principal); M79.605 Pain in left leg
CPT/HCPCS: 93970

== ENCOUNTER → 2017-12-18 06:39 | Outpatient (CLI) | payer MEDICAID, SELFPAY ==
[2017-12-19 08:45] LABS: Progesterone Level 24.42 ng/mL (See Comment)
== END ==
PROVIDERS: Family Provider Family Medicine; PCP Family Medicine; Visit Provider Obstetrics & Gynecology
DX: N97.0 Female infertility associated with anovulation (principal)
CPT/HCPCS: 36415; 84144

== ENCOUNTER → 2018-01-17 09:07 | Outpatient (CLI) | payer MEDICAID, SELFPAY | PROVIDERS: Family Provider Family Medicine; PCP Family Medicine; Visit Provider Obstetrics & Gynecology | DX: N97.0 Female infertility associated with anovulation (principal) | CPT/HCPCS: 36415; 84144 ==

== ENCOUNTER → 2018-02-16 12:55 | Outpatient (CLI) | payer MEDICAID, SELFPAY ==
[2018-02-16 14:39] LABS: Progesterone Level 16.13 ng/mL (See Comment)
[2018-02-16 14:39] LABS: Vitamin D,25 Hydroxy 35.8 ng/mL (29.95-100.01)
[2018-02-16 14:40] LABS: Hemoglobin A1c 5.4 % (4.2-6.3)
[2018-02-18 14:59] LABS: Anti-Cardiolipin Ab, IgA, Qn < 9 APL U/mL (0-11); Anti-Cardiolipin Ab, IgG, Qn < 9 GPL U/mL (0-14); Anti-Cardiolipin Ab, IgM, Qn < 9 MPL U/mL (0-12); Beta-2-Glycoprotein I IgA <9 (0-25); Beta-2-Glycoprotein I IgG <9 (0-20); Beta-2-Glycoprotein I IgM <9 (0-32)
== END ==
PROVIDERS: Family Provider Family Medicine; PCP Family Medicine; Visit Provider Obstetrics & Gynecology
DX: E55.9 Vitamin D deficiency, unspecified (principal); E28.2 Polycystic ovarian syndrome; N97.0 Female infertility associated with anovulation; R76.0 Raised antibody titer
CPT/HCPCS: 36415; 82306; 83036; 84144; 86146; 86147

== ENCOUNTER → 2018-02-26 17:06 | Outpatient (CLI) | payer MEDICAID, SELFPAY ==
[2018-02-26 18:06] LABS: hCG Titer Quant., Serum < 1 mIU/mL (<9 non-preg)
== END ==
PROVIDERS: Family Provider Family Medicine; PCP Family Medicine; Visit Provider Obstetrics & Gynecology
DX: N92.5 Other specified irregular menstruation (principal)
CPT/HCPCS: 84702

== ENCOUNTER → 2018-03-19 16:56 | Outpatient (CLI) | payer MEDICAID, SELFPAY ==
[2018-03-19 17:39] LABS: hCG Titer Quant., Serum < 1 mIU/mL (<9 non-preg)
[2018-03-20 12:33] LABS: Progesterone Level 10.88 ng/mL (See Comment)
== END ==
PROVIDERS: Family Provider Family Medicine; PCP Family Medicine; Referring Provider Obstetrics & Gynecology; Visit Provider Obstetrics & Gynecology
DX: N92.5 Other specified irregular menstruation (principal); N97.0 Female infertility associated with anovulation
CPT/HCPCS: 36415; 84144; 84702

== ENCOUNTER 2018-04-16 16:54 | Outpatient (RCR) | payer MEDICAID, SELFPAY ==
[2018-04-16 18:16] LABS: Progesterone Level 10.39 ng/mL (See Comment)
== END 2018-04-16 18:00 | disposition home or self-care (01) ==
LOC: LAB 16:54
PROVIDERS: Family Provider Family Medicine; PCP Family Medicine; Referring Provider Obstetrics & Gynecology; Visit Provider Obstetrics & Gynecology
DX: N97.0 Female infertility associated with anovulation (principal)
CPT/HCPCS: 36415; 84144

== ENCOUNTER 2018-05-18 10:34 | Outpatient (RCR) | payer MEDICAID, SELFPAY | END 2018-05-22 10:38 | disposition home or self-care (01) | LOC: LAB 10:34 | PROVIDERS: Family Provider Family Medicine; PCP Family Medicine; Referring Provider Obstetrics & Gynecology; Visit Provider Obstetrics & Gynecology | DX: N97.0 Female infertility associated with anovulation (principal) | CPT/HCPCS: 36415; 84144 ==

== ENCOUNTER 2018-06-18 15:12 | Outpatient (RCR) | payer OTHER, MEDICAID, SELFPAY ==
[2018-05-25 10:39] VITALS: BMI 41.3
[2018-06-18 16:49] LABS: Progesterone Level 6.42 ng/mL (See Comment)
== END 2018-06-18 16:00 | disposition home or self-care (01) ==
LOC: LAB 15:12
PROVIDERS: Family Provider Family Medicine; PCP Family Medicine; Referring Provider Obstetrics & Gynecology; Visit Provider Obstetrics & Gynecology
DX: N97.0 Female infertility associated with anovulation (principal)
CPT/HCPCS: 36415; 84144

== ENCOUNTER → 2018-06-21 11:14 | Outpatient (CLI) | payer MEDICAID, SELFPAY ==
[2018-05-25 10:39] VITALS: BMI 41.3
[2018-06-22 10:59] LABS: Progesterone Level 7.53 ng/mL (See Comment)
== END ==
PROVIDERS: Family Provider Family Medicine; PCP Family Medicine; Visit Provider Obstetrics & Gynecology
DX: N97.0 Female infertility associated with anovulation (principal); N91.4 Secondary oligomenorrhea; E28.2 Polycystic ovarian syndrome
CPT/HCPCS: 36415; 84144

== ENCOUNTER 2018-07-20 14:59 | Outpatient (RCR) | payer OTHER, MEDICAID, SELFPAY ==
[2018-05-25 10:39] VITALS: BMI 41.3
[2018-07-20 16:29] LABS: Progesterone Level 13.17 ng/mL (See Comment)
== END 2018-07-20 15:00 | disposition home or self-care (01) ==
LOC: LAB 14:59
PROVIDERS: Family Provider Family Medicine; PCP Family Medicine; Referring Provider Obstetrics & Gynecology; Visit Provider Obstetrics & Gynecology
DX: N97.0 Female infertility associated with anovulation (principal)
CPT/HCPCS: 36415; 84144

== ENCOUNTER 2018-08-20 15:54 | Outpatient (RCR) | payer OTHER, MEDICAID, SELFPAY ==
[2018-05-25 10:39] VITALS: BMI 41.3
[2018-08-20 17:24] LABS: Progesterone Level 15.61 ng/mL (See Comment)
== END 2018-08-20 22:00 | disposition home or self-care (01) ==
LOC: LAB 15:54
PROVIDERS: Family Provider Family Medicine; PCP Family Medicine; Referring Provider Obstetrics & Gynecology; Visit Provider Obstetrics & Gynecology
DX: N97.0 Female infertility associated with anovulation (principal)
CPT/HCPCS: 36415; 84144

== ENCOUNTER 2018-09-19 11:10 | Outpatient (RCR) | payer OTHER, MEDICAID, SELFPAY ==
[2018-05-25 10:39] VITALS: BMI 41.3
== END 2018-09-19 12:00 | disposition home or self-care (01) ==
LOC: LAB 11:10
PROVIDERS: Family Provider Family Medicine; PCP Family Medicine; Referring Provider Obstetrics & Gynecology; Visit Provider Obstetrics & Gynecology
DX: N97.0 Female infertility associated with anovulation (principal)
CPT/HCPCS: 36415; 84144

== ENCOUNTER 2018-10-20 12:37 | Outpatient (RCR) | payer OTHER, MEDICAID, SELFPAY ==
[2018-05-25 10:39] VITALS: BMI 41.3
[2018-10-20 17:53] LABS: Progesterone Level 12.39 ng/mL (See Comment)
== END 2018-10-20 16:00 | disposition home or self-care (01) ==
LOC: LAB 12:37
PROVIDERS: Family Provider Family Medicine; PCP Family Medicine; Referring Provider Obstetrics & Gynecology; Visit Provider Obstetrics & Gynecology
DX: N97.0 Female infertility associated with anovulation (principal)
CPT/HCPCS: 36415; 84144

== ENCOUNTER → 2018-11-02 15:57 | Outpatient (CLI) | payer OTHER, MEDICAID, SELFPAY ==
[2018-05-25 10:39] VITALS: BMI 41.3
[2018-11-02 17:25] LABS: hCG Titer Quant., Serum 513 mIU/mL (1-3)
[2018-11-02 17:31] LABS: Vitamin D,25 Hydroxy 39.2 ng/mL (29.95-100.01)
== END ==
PROVIDERS: Family Provider Family Medicine; PCP Family Medicine
DX: Z32.00 Encounter for pregnancy test, result unknown (principal)
CPT/HCPCS: 36415; 82306; 84702

== ENCOUNTER → 2018-11-09 15:09 | Outpatient (CLI) | payer OTHER, MEDICAID, SELFPAY ==
[2018-05-25 10:39] VITALS: BMI 41.3
[2018-11-09 16:34] LABS: hCG Titer Quant., Serum 2437 mIU/mL (1-3)
== END ==
PROVIDERS: Family Provider Family Medicine; PCP Family Medicine
DX: Z32.00 Encounter for pregnancy test, result unknown (principal)
CPT/HCPCS: 36415; 84702

== ENCOUNTER 2018-12-09 11:21 | Day surgery (SDC) | payer MEDICAID, SELFPAY ==
[2018-05-25 10:39] VITALS: BMI 41.3
[2018-12-09 12:17] VITALS: BP 117/74; PULSE 80; RESP 18; TEMP 36.8; O2SAT 97; BMI 40.1
--- NOTE | 2018-12-09 12:20 | PCM.OPRPT ---
Problem List (1) Missed with demise before 20 completed weeks of gestation Status: Acute Report of Operation Date of Procedure: 12/09/18 Pre-Operative Diagnosis: Missed at 9 weeks EGA Post-Operative Diagnosis: Same Surgery/Procedure Performed:: Suction Dilation and Curettage Description of Surgical Findings:: 10 weeks size uterus. Normal appearing cervix. Products of conception appropriate for US findings. volunteer services director: None Type of Anesthesia:: MAC Anesthesiologist: Lan Smith Special Medications: none Specimen's removed: Products of Conception Drains: none Estimated Blood Loss (mL): 20cc Fluids Replaced: 700cc LR Description of Procedure: Betzy was taken to the OR with IV running. She was given two grams of Cefotetan intravenously prior to the procedure for surgical prophylaxis. MAC anesthesia was then induced without complication. She was then prepped and draped in the dorsal lithotomy position. The bladder was then drained with a red rubber catheter. A weighted speculum was placed in the posterior vagina, the cervix identified and the anterior lip grasped with a single toothed tenaculum. The cervix was then dilated to 10mm without difficulty. A #9 suction curette was then placed into the uterine cavity and suction was applied. Products of conception were then obtained. A sharp curettage was then performed to a gritty texture throughout. The suction curette was reinserted and the remaining products of conception obtained. All instruments were then removed from the cervix and vagina. Sponge and instrument counts were correct. She was reversed from anesthesia and taken to the recovery room in stable condition. Patient is rH+. - Complications none - Admit VTE Documentation VTE Present on Admission: No VTE Mechan Device Prophylaxis: SCD's VTE Pharm Prophylaxis ordered?: No
[2018-12-09 12:47] LABS: Hematocrit 42.4 % (37-47); Hemoglobin 14.8 g/dl (12.0-15.0); Mean Corp Hgb Conc 34.9 g/gl (32-36); Mean Corpuscular Volume 88.9 fL (81-99); Mean Platelet Vol. 10.5 fl (6.2-12.0); Platelet Count 293 K/mm3 (150-450); RBC Distribution Width CV 13.2 % (11.6-14.6); RBC Distribution Width SD 42.2 fl (35.1-43.9); Red Blood Count 4.77 M/mm3 (4.2-5.4); White Blood Count 11.3 K/mm3 (4.4-11.0)
[2018-12-09 12:51] LABS: Scan Indicated on CBC? Y/N NO
[2018-12-09 13:10] LABS: International Normalized Ratio 1.1; Partial Thromboplast Time 30.1 Seconds (24.1-36.2); Prothrombin Time (Protime)PT. 13.5 SECONDS (11.7-14.9)
[2018-12-09] MEDS: Ketorolac 30 MG/ML Syringe IV (13:15)
--- NOTE | 2018-12-09 13:15 | DCINST_ITS ---
Discharge Diet: No Restrictions Discharge Activity: Return to Normal Activity, May Drive, May not drive while taking narcotic pain medications., May Shower Return to work on:: 12/11/18 May resume sexual activity in: 3 weeks Call your doctor if your incision/area has: Sudden Increased Bleeding, Foul Smelling Discharge Call your doctor if you observe: Fever of 101 or Higher, Inability to urinate, Inability to have a bowel movement, Using more than one pad per hour, Shortness of breath, Chest pain, Calf discomfort, Uncontrolled pain Cleanse incision/area with: Soap & Water Allergies/Adverse Reactions: Allergies No Known Allergies Allergy (Verified 12/09/18 11:45) Medications to take at Discharge Cholecalciferol (Vitamin D3) [Vitamin D3] 5,000 unit PO DAILY 10/23/17 Ibuprofen 600 mg PO 4X/DAY #30 tab 12/09/18 Metformin HCl 500 mg PO BID 12/09/18 Oxycodone [Oxyfast] 5 mg PO Q4H PRN PRN 7 Days #14 ml 12/09/18 Pnv No.95/Ferrous Fum/Folic AC [ Caplet] 1 ea PO DAILY 12/09/18 The following prescriptions were given: Ibuprofen 600 mg PO 4X/DAY #30 tab Prescription Printed Oxycodone [Oxyfast] 5 mg PO Q4H PRN PRN 7 Days #14 ml PRN Reason: strong pain Prescription Printed Primary Care Physician: Silas Alvarado MD [Primary Care Provider] - Test Results: Test results from this visit will be discussed in further detail at your follow- up appointment, if applicable. Please Follow Up With: Thong Riggs MD When: one week Proposed Discharge Date: 12/09/18
[2018-12-09 13:45] VITALS: BP 117/74; BP 128/95; PULSE 109; RESP 18; TEMP 37.6; O2SAT 95
[2018-12-09 13:55] VITALS: BP 117/74; BP 129/68; PULSE 106; RESP 20; O2SAT 95
--- NOTE | 2018-12-09 13:55 | POC_PTH ---
PATIENT: LEIDA MURDOCK [place] [facility] [place][id number] AGE/SX: 28/F ROOM: RE12/09/[address]: Dr. Thong Riggs MD : 1990 BED: DIS: 12/09/2018 SPEC #: [id number] RECD: 12/09/18 14:53 STATUS: NEREIDA REQ #: [id number] DINORA: 12/09/18 13:[address]: Thong Riggs DEPT: SURGICAL PATHOLOGY RECD BY: Osman Santiago ENTERED: 12/10/18 09:39 SP TYPE: PROD CONC OTHR DR: Dr. Silas Alvarado MD Tissues: Product of conception, NOS Procedures: Surgery Specimen Level IV HEADER OPERATION: Suction dilation and curettage PRE-OP DIAGNOSIS: Missed TISSUE SUBMITTED: Products of conception MICROSCOPIC DIAGNOSIS Products of conception: Degenerative immature chorionic villi, decidual tissue with implantation site and gestational pattern endometrium, consistent with products of conception. CE:rg 6/21/19 MICROSCOPIC DESCRIPTION Slides are reviewed. GROSS DESCRIPTION Received in fixative is one container labeled with the patient's name and designated products of conception. The specimen consists of multiple irregular fragments of sampson-pink soft tissue and reddish fragments of clotted blood that in aggregate measure 9.5 x 7 x 1.5 cm. Grossly, no embryonic tissue is identified. Farm Rancher sections are submitted in three cassettes. / CE:dayami 12/10/18 TC:5 CPT: 18249
[2018-12-09 14:00] VITALS: BP 115/79; BP 117/74; PULSE 96; RESP 20; TEMP 37.1; O2SAT 95
[2018-12-09 15:33] VITALS: BP 117/74
== END 2018-12-09 15:37 | disposition home or self-care (01) ==
LOC: SDC 11:23 → AC 11:29
PROVIDERS: Family Provider Family Medicine; PCP Family Medicine; Referring Provider Obstetrics & Gynecology; Visit Provider Obstetrics & Gynecology
PROC: (CPT 59812; principal; 2018-12-09 13:40)
DX: O03.4 Incomplete spontaneous abortion without complication (principal); F17.200 Nicotine dependence, unspecified, uncomplicated
CPT/HCPCS: 01965; 59812; 85027; 85610; 85730; 86850; 86900; 88305; J7120; J2405

== ENCOUNTER 2019-02-08 15:02 | Outpatient (RCR) | payer MEDICAID, SELFPAY ==
[2018-05-25 10:39] VITALS: BMI 41.3
[2019-02-08 16:35] LABS: Progesterone Level 5.37 ng/mL (See Comment)
== END 2019-02-08 16:00 | disposition home or self-care (01) ==
LOC: LAB 15:02
PROVIDERS: Family Provider Family Medicine; PCP Family Medicine; Referring Provider Obstetrics & Gynecology; Visit Provider Obstetrics & Gynecology
DX: N97.0 Female infertility associated with anovulation (principal)
CPT/HCPCS: 36415; 84144

== ENCOUNTER 2019-03-11 16:59 | Outpatient (RCR) | payer MEDICAID, SELFPAY | END 2019-03-11 18:00 | disposition home or self-care (01) | LOC: LAB 16:59 | PROVIDERS: Family Provider Family Medicine; PCP Family Medicine; Referring Provider Obstetrics & Gynecology; Visit Provider Obstetrics & Gynecology | DX: N97.0 Female infertility associated with anovulation (principal) | CPT/HCPCS: 36415; 84144 ==

== ENCOUNTER 2019-04-15 15:01 | Outpatient (RCR) | payer MEDICAID, SELFPAY ==
[2019-04-15 16:11] LABS: Progesterone Level 18.22 ng/mL (See Comment)
== END 2019-04-15 18:00 | disposition home or self-care (01) ==
LOC: LAB 15:01
PROVIDERS: Family Provider Family Medicine; PCP Family Medicine; Referring Provider Obstetrics & Gynecology; Visit Provider Obstetrics & Gynecology
DX: N97.0 Female infertility associated with anovulation (principal); N91.4 Secondary oligomenorrhea; E28.2 Polycystic ovarian syndrome
CPT/HCPCS: 36415; 84144

== ENCOUNTER 2019-05-15 10:11 | Outpatient (RCR) | payer MEDICAID, SELFPAY ==
[2019-05-17 09:49] LABS: Progesterone Level 9.72 ng/mL (See Comment)
== END 2019-05-15 18:00 | disposition home or self-care (01) ==
LOC: LAB 10:11
PROVIDERS: Family Provider Family Medicine; PCP Family Medicine; Referring Provider Obstetrics & Gynecology; Visit Provider Obstetrics & Gynecology
DX: N97.0 Female infertility associated with anovulation (principal); N91.4 Secondary oligomenorrhea
CPT/HCPCS: 36415; 84144

== ENCOUNTER 2019-06-13 11:38 | Emergency (ER) | payer MEDICAID, SELFPAY ==
[2019-06-13 11:39] VITALS: BP 145/90; PULSE 75; RESP 17; TEMP 36.7; O2SAT 97; BMI 41.1
--- NOTE | 2019-06-13 12:05 | CT_ITS ---
STUDY: CT ABDOMEN AND PELVIS WITH CONTRAST REASON FOR EXAM: Female, 28 years old. Left pelvic, abdominal, and flank pain RADIATION DOSAGE (If Supplied By Facility): CTDIvol = ( 15.31 ) mGy, DLP = ( 1347.96 ) mGycm TECHNIQUE: Transaxial images were obtained from the dome of the diaphragm to the symphysis pubis without oral contrast. Oral and amp; IV Gastrografin and amp; 100mL Isovue-300 was administered. Sagittal and coronal images were reconstructed. Individualized dose optimization techniques were used for this CT. COMPARISON: None. FINDINGS: The visualized lung bases are unremarkable. The visualized portions of the heart are within normal limits. Fatty liver. Normal gallbladder and extrahepatic biliary system. Normal spleen. Normal pancreas. 1.3 cm left adrenal nodule. Normal right kidney. Mild hydronephrosis of the left kidney. Mild left hydroureter. Normal visualized stomach. Normal small intestine. Mild diverticulosis of the colon. The appendix is visualized and appears normal. Normal abdominal aorta. Normal inferior vena cava. Subcentimeter nodes in the retroperitoneum. There is a punctate stone noted at the intramural segment of the left UVJ of the urinary bladder. Right adnexal cystic nodules up to 2 cm. Correlate with pelvic ultrasound if needed. Mild pelvic fluid. Normal abdominal wall. Normal osseous structures. CT/Abdomen/Pelvis WITH Contrast IMPRESSION: Mild left hydronephrosis and left hydroureter with a stone noted at the left UVJ. Fatty liver. Left renal nodule. Mild colonic diverticulosis. Subcentimeter retroperitoneal nodes. Electronically Signed: Arnaud Hernandez DO at 15:07 EST Tel [phone], Service support ,
--- NOTE | 2019-06-13 12:18 | ED.DCSUM_ITS ---
- ER Visit Summary Date of Service: 06/13/19 Chief Complaint: Pelvic pain History of Present Illness: The patient is a 28 F who presents with pelvic pain that has been getting worse over the past week. Patient states it is gradually gotten worse. Patient states that improved a few days ago but has gotten worse over the past couple days. Patient states the pain is over the suprapubic and lower abdominal area. Patient describes her pain as sharp, dull, and aching. Patient states pain radiates into her back. Patient states her pain got worse after she took some ibuprofen. Patient denies any fevers or chills. Patient denies any abnormal vaginal bleeding or discharge. Patient denies any dysuria or hematuria. Physical Examination: Vital signs are stable. Patient is afebrile. Patient is in no acute distress. Oral mucosa is pink and moist. Neck is supple. Trachea is midline. There is no JVD. Heart was regular rate and rhythm. Lungs are clear and equal bilaterally. Abdomen is soft. Bowel sounds are normal. There is lower abdominal tenderness. There is no rebound or guarding noted. Cranial nerves II through XII are intact. There are no focal motor or sensory deficits noted. Test Results: CBC and comprehensive metabolic profile were obtained and were within normal limits. Urinalysis does not show any evidence of urinary tract infection. CT scan of the abdomen pelvis shows a small punctate stone at the left ureterovesicular junction. Emergency Department Course and Treatment: Patient was given IV fluids, morphine, and Zofran here. Patient was feeling better on reevaluation. Patient was advised of her results. Patient was instructed to drink plenty of fluids. Patient was given a prescription for a short course of [place] to take as needed. Patient was instructed to follow-up with her primary care physician in 5 to 7 days. Patient understood and was agreeable with the plan. All questions were answered. Disposition: Discharge home Impression: Left ureteral calculus This note was generated with [employer] dictation software. It may contain incorrect words, spelling, and punctuation that were not noted in review of the chart pr ior to signing ED Disposition - Plan for ED Patient: Disposition: Home or Assisted Living Diagnosis: Left ureteral calculus Instructions: KIDNEY STONE w/ Colic Prescriptions: Hydrocodone Bitart/Apap 5-325 [Clarendon 5MG-325MG] 1 tab PO Q6H PRN PRN 3 Days #10 tab PRN Reason: Pain Prescription Printed Referrals: Silas Alvarado MD [Primary Care Provider] - 5-7 Days
[2019-06-13] MEDS: 0.9% Normal Saline 1,000 ML 1000 ML IV (12:27)
[2019-06-13 12:30] LABS: Mucous, Urine 0 SEEN /hpf (<or=2+)
[2019-06-13 12:31] LABS: Color, Urine Yellow (Yellow); Glucose, Dipstick Normal (Normal); Ketone-Dipstick 5 mg/dl (Negative); Leukocyte Esterase-Dipstick 25 /ul (Negative); Nitrite-Dipstick Negative (Negative); Occult Blood-Urine 150 /ul (Negative); Protein-Dipstick 30 mg/dl (Negative); Specific Gravity, Urine 1.025 (1.002-1.030); Urine Bilirubin Dipstick Negative (Negative); Urine Clarity Sl. Cloudy (Clear); Urine Urobilinogen Normal (Normal)
[2019-06-13 12:32] LABS: Absolute Lymphocyte Count 2.44 X10^3/uL (0.83-4.51); Absolute Neutrophil Count 7.4 X10^3/uL (2.0-7.7); Basophil# 0.06 X10^3/uL; Basophil% 0.6 % (0-1); Eosinophil# 0.08 X10^3/uL; Eosinophils% 0.7 % (0-5); Hematocrit 45.7 % (37-47); Hemoglobin 15.3 g/dL (12.0-15.0); Lymphocyte # 2.44 X10^3/ul (4.0); Lymphocyte % 22.9 % (19-41); Mean Corp Hgb Conc 33.5 g/dL (32-36); Mean Corpuscular Hgb 30.7 pg (27.0-32.0); Mean Corpuscular Volume 91.8 fL (81-99); Mean Platelet Vol. 10.3 fl (6.2-12.0); Monocyte# 0.69 X10^3/uL; Monocyte% 6.5 % (0-10); NRBC Flagged by Analyzer 0 % (0-5); Neutrophil # 7.35 X10^3/uL (2.7-7.7); Neutrophil % 68.8 % (47-70); Platelet Count 315 K/mm3 (150-450); RBC Distribution Width CV 12.2 % (11.6-14.6); RBC Distribution Width SD 40.7 fl (35.1-43.9); Red Blood Count 4.98 M/mm3 (4.2-5.4); White Blood Count 10.7 K/mm3 (4.4-11.0)
[2019-06-13 12:36] LABS: Internal QC Validated? YES +Cl - CLEAR BKGD; Pregnancy, Serum, hCG Quali. NEGATIVE Negative
[2019-06-13 12:41] LABS: Bacteria 1+ /hpf (None Seen); Red Blood Cells-Urine 0-5 SEEN /hpf (0-5); Squamous Epithelial Cells - UA 10-25 SEEN /hpf (5-10); White Blood Cells 0-5 SEEN /hpf (0-5)
[2019-06-13] MEDS: Ondansetron 4 MG/2 ML Vial IV (12:42)
[2019-06-13] MEDS: Morphine 4 MG/ML Syringe IV (12:43)
[2019-06-13 12:46] LABS: ALB/GLOB Ratio 1.1 RATIO (0.9-2.4); AST(SGOT) 16 U/L (15-37); Alanine Aminotransfer ALT/SGPT 20 U/L (13-56); Albumin, Serum 3.7 g/dL (3.2-5.0); Alkaline Phosphatase 80 U/L (45-117); Anion Gap 6 (5-15); BUN 12 mg/dL (7-18); BUN/Creat Ratio 11.5 RATIO (10-20); Calcium,Total 8.8 mg/dL (8.5-10.1); Chloride 111 mmol/L (98-107); Creatinine, Serum 1.04 mg/dL (0.55-1.02); EST Glomerular Filtration Rate 68 mL/min (>60); Est Glom Filt Rate - Afr Amer 82 mL/min (>60); Estimated Creatinine Clearance 79.71 ml/min; Globulin 3.3 g/dL (2.2-4.2); Glucose 144 mg/dL (74-106); Potassium 3.8 mmol/L (3.5-5.1); Sodium Level 141 mmol/L (136-145)
[2019-06-13 14:31] VITALS: BP 119/74; PULSE 64; RESP 15; O2SAT 98
[2019-06-13 15:45] VITALS: BP 123/67; PULSE 78; RESP 16; O2SAT 98
== END 2019-06-13 15:45 | disposition home or self-care (01) ==
PROVIDERS: Emergency Provider Emergency Medicine; Family Provider Family Medicine; PCP Family Medicine
DX: N13.2 Hydronephrosis with renal and ureteral calculous obstruction (principal); E11.9 Type 2 diabetes mellitus without complications; E66.9 Obesity, unspecified; Z79.84 Long term (current) use of oral hypoglycemic drugs; Z72.0 Tobacco use
CPT/HCPCS: 74177; 80053; 81001; 84703; 85025; 96361; 96374; 96375; 99283; J7030; Q9967; A4216; J2405

== ENCOUNTER 2019-06-14 15:13 | Outpatient (RCR) | payer MEDICAID, SELFPAY ==
[2019-06-13 11:39] VITALS: BMI 41.1
[2019-06-14 16:23] LABS: Progesterone Level 10.17 ng/mL (See Comment)
== END 2019-06-14 18:00 | disposition home or self-care (01) ==
LOC: LAB 15:13
PROVIDERS: Family Provider Family Medicine; PCP Family Medicine; Referring Provider Obstetrics & Gynecology; Visit Provider Obstetrics & Gynecology
DX: N97.0 Female infertility associated with anovulation (principal); N91.4 Secondary oligomenorrhea
CPT/HCPCS: 36415; 84144

== ENCOUNTER 2019-07-29 09:52 | Day surgery (SDC) | payer MEDICAID, SELFPAY ==
[2019-07-20 16:16] LABS: Hemoglobin 15.6 g/dL (12.0-15.0); Mean Corp Hgb Conc 33.9 g/dL (32-36); Mean Corpuscular Hgb 30.6 pg (27.0-32.0); Mean Corpuscular Volume 90.4 fL (81-99); Mean Platelet Vol. 10.6 fl (6.2-12.0); Platelet Count 328 K/mm3 (150-450); RBC Distribution Width CV 12.8 % (11.6-14.6); Red Blood Count 5.09 M/mm3 (4.2-5.4); White Blood Count 12.6 K/mm3 (4.4-11.0)
[2019-07-20 16:41] LABS: Prothrombin Time (Protime)PT. 12.8 SECONDS (11.7-14.9)
[2019-07-20 16:42] LABS: Partial Thromboplast Time 31.4 Seconds (24.1-36.2)
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
[2019-07-29] VITALS (7 sets, daily range): BP systolic 115–169; BP diastolic 71–94; PULSE 65–77; RESP 16; TEMP 36.1–36.3; O2SAT 90–97; BMI 41.5
[2019-07-29 10:31] LABS: Internal QC Validated? YES +Cl - CLEAR BKGD; Pregnancy, Urine Negative Negative
[2019-07-29] MEDS: Lactated Ringers 1,000 ML 100 ML IV (10:33)
[2019-07-29] MEDS: Heparin Injection (Vial) 5,000 UNIT/ML VIAL 5000 UNIT SC (10:45)
--- NOTE | 2019-07-29 11:30 | TISS_PTH ---
PATIENT: LEIDA MURDOCK [place] [facility] [id number] AGE/SX: 28/F ROOM: RE07/29/[address]: Dr. Brionna Maynard MD : 1990 BED: DIS: 07/29/2019 SPEC #: [id number] RECD: 07/29/19 16:29 STATUS: NEREIDA REMarshall #: [id number] DINORA: 07/29/19 11:[address]: Brionna Rodriguez DEPT: SURGICAL PATHOLOGY RECD BY: Magdalene Olmstead ENTERED: 07/30/19 10:26 SP TYPE: Tissue Bx DANNY DR: Dr. Silas Alvarado MD Tissues: A - Peritoneum, NOS B - Peritoneum, NOS C - Peritoneum, NOS Procedures: Surgery Specimen Level IV HEADER OPERATION: Diagnostic laparoscopy, treatment of endometriosis PRE-OP DIAGNOSIS: Endometriosis TISSUE SUBMITTED: A - Left ovarian fossa peritoneum, B - Right uterosacral peritoneum, C - Right uterosacral MICROSCOPIC DIAGNOSIS A. Left ovarian fossa peritoneum, biopsy: Consistent with endometriosis. B. Right uterosacral peritoneum, biopsy: Consistent with endometriosis. C. Right uterosacral tissue, biopsy: Fibrofatty tissue with minimal chronic inflammation. AM:dayami 08/02/19 MICROSCOPIC DESCRIPTION Slides are reviewed. GROSS DESCRIPTION A - Received in fixative is one container labeled with the patient's name and designated left ovarian fossa peritoneum. The specimen consists of multiple irregular fragments of light sampson soft tissue that in aggregate measure 1.2 x 1.2 x 0.3 cm. The specimen is totally submitted in one cassette. B - Received in fixative is one container labeled with the patient's name and designated right uterosacral peritoneum. The specimen consists of one irregular fragment of light sampson soft tissue that measures .7 x 0.5 x 0.2 cm. The specimen is totally submitted in one cassette. C - Received in fixative is one container labeled with the patient's name and designated right uterosacral. The specimen consists of one irregular fragment of sampson soft tissue measuring 1 x 0.5 x 0.2 cm. The specimen is totally submitted in one cassette. / JONATHAN:dayami 07/30/19 TC:5 CPT: 70846 x3
[2019-07-29] MEDS: Bupivacaine Mpf 0.5% 30 ML VIAL (13:30)
--- NOTE | 2019-07-29 14:05 | DCINST_ITS ---
- Discharge Diagnoses Current Active Problems: Endometriosis Reason(s) for Visit for Discharge Instructions: Endometriosis You will use the following diet at home:: No restrictions Your food should be the consistency of: Regular Discharge Activity: Return to Normal Activity, May not drive while taking narcotic pain medications., May Shower, - - No tub bath for 1-2 weeks. Nothing in the vagina for 4 weeks. May resume sexual activity in: 4 weeks Lifting Restrictions: 10-20 lb Call your doctor if your incision/area has: Sudden Increased Bleeding, Increased Pain/ Swelling, Increased Redness Call your doctor if you observe: Fever of 101 or Higher, Inability to urinate, Inability to have a bowel movement, Using more than one pad per hour, Shortness of breath, Chest pain, Calf discomfort, Uncontrolled pain Suture Line Care: Avoid Pulling/Pushing Cleanse incision/area with: Soap & Water Instructions: What Is Endometriosis? Allergies/Adverse Reactions: Allergies No Known Allergies Allergy (Verified 07/29/19 10:23) Medications to take at Discharge Ibuprofen 600 mg PO TID PRN #30 tab 07/29/19 Oxycodone [Oxyir] 5 mg PO Q6H PRN PRN 7 Days #20 tablet 07/29/19 The following prescriptions were given: Ibuprofen 600 mg PO TID PRN #30 tab PRN Reason: Pain Or Fever Transmission Status: Pending to [id number] Oxycodone [Oxyir] 5 mg PO Q6H PRN PRN 7 Days #20 tablet PRN Reason: severe pain Primary Care Physician: Silas Alvarado MD [Primary Care Provider] - Test Results: Test results from this visit will be discussed in further detail at your follow- up appointment, if applicable. Please Follow Up With: Brionna Chandra MD When: 2 - 4 weeks
--- NOTE | 2019-07-29 22:13 | PCM.OPRPT ---
Problem List (1) Endometriosis Status: Acute Report of Operation Date of Procedure: 07/29/19 Pre-Operative Diagnosis: Endometriosis Post-Operative Diagnosis: Endometriosis Surgery/Procedure Performed:: Diagnostic laparoscopy, surgical treatment of endometriosis with peritoneal excision Description of Surgical Findings:: Right ovarian fossa endometriosis - red lesions with peritoneal contracture right uterosacral endometriosis - red lesions left uterosacral peritoneal endometriosis Stage II endometriosis permit specialist: Freda Buitrago Type of Anesthesia:: General Anesthesiologist: Darío Escobar Specimen's removed: 1. right ovarian fossa peritoneum. 2. right uterosacral peritoneum. 3. left uterosacral peritonoeum Estimated Blood Loss (mL): 25 Description of Procedure: Patient was brought to the operating room and sign in performed. She was placed in the dorsal supine position, induced under general anesthesia and intubated. She was repositioned into dorsal lithotomy and the arms tucked at the sides. An examination under anesthesia was performed. The abdomen and peritoneum were prepped and draped in sterile fashion. The patient was repositioned into high lithotomy and moncada catheter placed. A weighted speculum was placed vaginally and the cervix grasped at the anterior cervical lip with a single tooth tenaculum. The uterus was sounded to 7cm and a ZUMI uterine manipulator placed and secured. The tenaculum was removed from the cervix and the site hemostatic. The patient was repositioned into low lithotomy and attention turned to the abdomen. An infraumbilical incision was made with the scalpel. A veress needle was placed with successful hangdrop test and no aspirate. The Veress needle was removed and a 5mm port was placed under laparoscopy guidance at this site. A suprapubic incision was made and 5mm port also placed here. The abdomen was inspected and the patient was placed into Trendelenberg with subsequent pelvic inspection revealing peritoneal endometriosis of the right ovarian fossa, adjacent to the right uterosacral ligament, as well as the left uterosacral ligament and left ovarian fossa. Laparoscopic TAP block was performed using half percent Bupivacaine in the right and left lower quadrants. Incisions were made at these sites and 5mm ports were placed at each site respectively. The right uterosacral endometriotic lesion peritoneum was excised along with the right ovarian fossa peritoneum with wide margin using cold anila. In similar fashion the left uterosacral peritoneal endometriosis was excised, as was the left ovarian fossa peritoneal endometriosis. The ureters were observed bilaterally during the procedure before and after each excision. The peritoneal excisional beds were copiously irrigated and there was good hemostasis. Interceed was placed at each excisional site. The abdomen was desufflated and trochars removed. The skin was closed with 4-0 monocryl by the RN UTILIZATION MANAGEMENT UM under my supervision.Steristrips and Opsite dressings were applied. The patient was placed into lithotomy positioning, the moncada catheter and the uterine manipulator were rmeoved. The patient was repositioned into dorsal supine position, awakened, extubated and transferred to the recovery room without complication. She tolerated the procedure well. Sponge and needle counts were correct x 2. - Admit VTE Documentation VTE Present on Admission: No VTE Mechan Device Prophylaxis: SCD's VTE Pharm Prophylaxis ordered?: No
== END 2019-07-29 16:55 | disposition home or self-care (01) ==
LOC: SDC 09:53 → AC 09:53
PROVIDERS: Family Provider Family Medicine; PCP Family Medicine; Referring Provider Obstetrics & Gynecology; Visit Provider Obstetrics & Gynecology
PROC: (CPT 49320; principal; 2019-07-29 11:15)
DX: N80.3 Endometriosis of pelvic peritoneum (principal); K21.9 Gastro-esophageal reflux disease without esophagitis; F17.210 Nicotine dependence, cigarettes, uncomplicated
CPT/HCPCS: 58662; 81025; 85027; 85610; 85730; 86850; 86900; 86901; 88305; J7120; J2405

== ENCOUNTER → 2019-11-09 15:21 | Outpatient (CLI) | payer MEDICAID, SELFPAY ==
[2019-07-29 10:25] VITALS: BMI 41.5
[2019-11-09 17:32] LABS: Progesterone Level 13.69 ng/mL (See Comment)
== END ==
PROVIDERS: PCP Family Medicine; Visit Provider Obstetrics & Gynecology
DX: N97.0 Female infertility associated with anovulation (principal)
CPT/HCPCS: 36415; 84144

== ENCOUNTER → 2019-12-10 13:08 | Outpatient (CLI) | payer MEDICAID, SELFPAY ==
[2019-07-29 10:25] VITALS: BMI 41.5
[2019-12-10 19:23] LABS: Progesterone Level 5.27 ng/mL (See Comment)
== END ==
PROVIDERS: PCP Family Medicine; Visit Provider Obstetrics & Gynecology
DX: N97.0 Female infertility associated with anovulation (principal)
CPT/HCPCS: 36415; 84144

== ENCOUNTER → 2020-01-11 15:20 | Outpatient (CLI) | payer MEDICAID, SELFPAY ==
[2019-07-29 10:25] VITALS: BMI 41.5
[2020-01-11 16:22] LABS: Hemoglobin A1c 5.9 % (3.8-5.6)
[2020-01-11 16:45] LABS: Progesterone Level 31.87 ng/mL (See Comment)
[2020-01-11 16:49] LABS: Thyroid Stim Hormone (TSH) 2.35 uIU/mL (0.358-3.74)
[2020-01-12 13:40] LABS: Vitamin D,25 Hydroxy 60.8 ng/mL
[2020-01-14 20:11] LABS: Anti-Cardiolipin Ab, IgG, Qn 9 GPL U/mL (0-14); Anti-Cardiolipin Ab, IgM, Qn < 9 MPL U/mL (0-12); Beta-2-Glycoprotein I IgA <9 (0-25); Beta-2-Glycoprotein I IgG <9 (0-20); Beta-2-Glycoprotein I IgM <9 (0-32)
[2020-02-10 18:24] LABS: Progesterone Level 30.15 ng/mL (See Comment)
== END ==
LOC: LAB.FUTURE 01-20 06:20 → WOBLAB 02-10 16:05
PROVIDERS: Student in an Organized Health Care Education/Training Program; PCP Family Medicine; Visit Provider Obstetrics & Gynecology
DX: N97.0 Female infertility associated with anovulation (principal); N96 Recurrent pregnancy loss
CPT/HCPCS: 36415; 82306; 83036; 84144; 84443; 86146; 86147

== ENCOUNTER → 2020-01-15 08:23 | Outpatient (CLI) | payer MEDICAID, SELFPAY ==
[2019-07-29 10:25] VITALS: BMI 41.5
[2020-01-15 09:44] LABS: Prolactin 17.7 ng/mL
== END ==
PROVIDERS: PCP Family Medicine
DX: N96 Recurrent pregnancy loss (principal)
CPT/HCPCS: 36415; 84146

== ENCOUNTER 2020-03-11 07:10 | Outpatient (RCR) | payer MEDICAID, SELFPAY ==
[2019-07-29 10:25] VITALS: BMI 41.5
[2020-03-13 08:05] LABS: Progesterone Level 16.11 ng/mL (See Comment)
== END 2020-03-11 18:00 | disposition home or self-care (01) ==
LOC: LAB 07:10
PROVIDERS: PCP Family Medicine; Referring Provider Obstetrics & Gynecology; Visit Provider Obstetrics & Gynecology
DX: N97.0 Female infertility associated with anovulation (principal)
CPT/HCPCS: 36415; 84144

== ENCOUNTER → 2020-06-21 15:00 | Outpatient (CLI) | payer MEDICAID, SELFPAY ==
[2019-07-29 10:25] VITALS: BMI 41.5
[2020-06-21 15:56] LABS: hCG Titer Quant., Serum < 1 mIU/mL (1-3)
== END ==
PROVIDERS: PCP Family Medicine
DX: O09.90 Supervision of high risk pregnancy, unspecified, unspecified trimester (principal); Z3A.00 Weeks of gestation of pregnancy not specified
CPT/HCPCS: 36415; 84702

== ENCOUNTER → 2021-01-09 | Outpatient (CLI) | payer BC, SELFPAY ==
[2020-12-29 08:37] VITALS: BMI 41.5
[2021-01-15 15:49] LABS: HPV Reflexed? NOT INDICATED
== END | disposition home or self-care (01) ==
LOC: LABSPEC 01-10 09:06
PROVIDERS: PCP Family Medicine; Visit Provider Obstetrics & Gynecology
DX: Z12.4 Encounter for screening for malignant neoplasm of cervix (principal)
CPT/HCPCS: 88175; G0145

== ENCOUNTER → 2021-04-11 15:01 | Outpatient (CLI) | payer BC, SELFPAY | PROVIDERS: PCP Family Medicine | DX: Z13.29 Encounter for screening for other suspected endocrine disorder (principal) | CPT/HCPCS: 36415; 84144 ==

== ENCOUNTER → 2021-04-19 09:39 | Outpatient (CLI) | payer BC, SELFPAY ==
[2021-04-19 10:58] LABS: hCG Titer Quant., Serum 45 mIU/mL (1-3)
== END ==
PROVIDERS: PCP Family Medicine
DX: O09.00 Supervision of pregnancy with history of infertility, unspecified trimester (principal); Z3A.00 Weeks of gestation of pregnancy not specified
CPT/HCPCS: 36415; 84702

== ENCOUNTER → 2021-04-23 06:30 | Outpatient (CLI) | payer BC, SELFPAY ==
[2021-04-23 07:29] LABS: hCG Titer Quant., Serum 192 mIU/mL (1-3)
== END ==
PROVIDERS: PCP Family Medicine
DX: O09.00 Supervision of pregnancy with history of infertility, unspecified trimester (principal); Z3A.00 Weeks of gestation of pregnancy not specified
CPT/HCPCS: 36415; 84702

== ENCOUNTER → 2021-04-25 06:16 | Outpatient (CLI) | payer BC, SELFPAY ==
[2021-04-25 07:01] LABS: hCG Titer Quant., Serum 320 mIU/mL (1-3)
== END ==
PROVIDERS: PCP Family Medicine
DX: O09.00 Supervision of pregnancy with history of infertility, unspecified trimester (principal); Z3A.00 Weeks of gestation of pregnancy not specified
CPT/HCPCS: 36415; 84702

== ENCOUNTER → 2021-04-27 06:27 | Outpatient (CLI) | payer BC, SELFPAY ==
[2021-04-27 07:30] LABS: hCG Titer Quant., Serum 561 mIU/mL (1-3)
== END ==
PROVIDERS: PCP Family Medicine
DX: O09.00 Supervision of pregnancy with history of infertility, unspecified trimester (principal); Z3A.00 Weeks of gestation of pregnancy not specified
CPT/HCPCS: 36415; 84702

== ENCOUNTER → 2021-04-30 06:14 | Outpatient (CLI) | payer BC, SELFPAY ==
[2021-04-30 07:23] LABS: hCG Titer Quant., Serum 1551 mIU/mL (1-3)
== END ==
PROVIDERS: PCP Family Medicine
DX: O09.00 Supervision of pregnancy with history of infertility, unspecified trimester (principal); Z3A.00 Weeks of gestation of pregnancy not specified
CPT/HCPCS: 36415; 84702

== ENCOUNTER → 2021-05-14 07:24 | Outpatient (CLI) | payer BC, SELFPAY ==
[2021-05-14 08:21] LABS: hCG Titer Quant., Serum 15721 mIU/mL (1-3)
== END ==
PROVIDERS: PCP Family Medicine
DX: O09.00 Supervision of pregnancy with history of infertility, unspecified trimester (principal); Z3A.00 Weeks of gestation of pregnancy not specified
CPT/HCPCS: 36415; 84702

== ENCOUNTER 2021-05-31 14:04 | Day surgery (SDC) | payer BC, SELFPAY ==
[2021-05-30 17:17] LABS: Hematocrit 42.2 % (37-47); Hemoglobin 14.5 g/dL (12.0-15.0); Mean Corp Hgb Conc 34.4 g/dL (32-36); Mean Corpuscular Hgb 31.3 pg (27.0-32.0); Mean Corpuscular Volume 91.1 fL (81-99); Mean Platelet Vol. 10.1 fl (6.2-12.0); Platelet Count 339 K/mm3 (150-450); RBC Distribution Width CV 12.4 % (11.6-14.6); RBC Distribution Width SD 41.1 fl (35.1-43.9); Red Blood Count 4.63 M/mm3 (4.2-5.4); White Blood Count 15.2 K/mm3 (4.4-11.0)
--- NOTE | 2021-05-31 | POC_PTH ---
PATIENT: LEIDA MURDOCK [place] [facility] [place][id number] AGE/SX: 30/F ROOM: RE05/31/[address]: Dr. Brionna Maynard MD : 1990 BED: DIS: 05/31/2021 SPEC #: [id number] RECD: 05/31/21 07:38 STATUS: NEREIDA PARKER #: [id number] DINORA: 05/31/21 00:[address]: Brionna Rodriguez DEPT: SURGICAL PATHOLOGY RECD BY: Charlie Mota ENTERED: 06/01/21 08:29 SP TYPE: PROD CONC OTHR DR: Dr. Silas Alvarado MD Tissues: Product of conception, NOS Procedures: Surgery Specimen Level IV HEADER OPERATION: Suction D & C PRE-OP DIAGNOSIS: Missed TISSUE SUBMITTED: Products of conception MICROSCOPIC DIAGNOSIS Endometrium, curettage: Decidualized tissue, trophoblastic cells and rare chorionic villi consistent with products of conception. AM:dayami 06/04/2021 MICROSCOPIC DESCRIPTION Slides are reviewed. GROSS DESCRIPTION Received in fixative is one container labeled with the patient's name and designated products of conception. The specimen consists of multiple irregular fragments of light to dark sampson soft tissue that in aggregate measure 7 x 5 x 0.8 cm. parts are not grossly recognized. Instructional Technologist portions are submitted in six cassette. / AM:dayami 06/01/21 TC:5 CPT: 10631
--- NOTE | 2021-05-31 09:17 | SUR.PREOP ---
dr kd mcdaniel and anesthesia aware that pt's wbc count is 15.2
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
[2021-05-31 14:27] VITALS: BP 126/80; PULSE 89; RESP 16; TEMP 36.5; O2SAT 98; BMI 41.8
[2021-05-31] MEDS: Lactated Ringers 1,000 ML 15 ML IV (14:30)
[2021-05-31] MEDS: Lidocaine 1% (30 ml sdv) 30 ML Vial (16:04)
[2021-05-31] MEDS: Lubricating Jelly 60 GM Tube 30 GM (16:04)
[2021-05-31 16:25] VITALS: BP 126/80; BP 148/87; PULSE 93; RESP 18; TEMP 36.4; O2SAT 98
[2021-05-31 16:35] VITALS: BP 126/80; BP 145/89; PULSE 82; RESP 18; O2SAT 96
[2021-05-31 16:40] VITALS: BP 126/80; BP 149/90; PULSE 89; RESP 18; O2SAT 96
[2021-05-31 16:53] VITALS: BP 126/80; BP 137/86; PULSE 84; RESP 18; TEMP 36.1; O2SAT 99
--- NOTE | 2021-05-31 17:26 | PCM.DC ---
Discharge Instructions Diet Discharge Diet: No restrictions Activity Discharge Activity: Return to Normal Activity May resume sexual activity in: 4 weeks Dressing / Incision Call your doctor if you observe: Fever of 101 or Higher, Using more than 1 pad per hour, Shortness of breath, Chest pain, Calf discomfort and Uncontrolled pain Follow Up Care Please Follow Up With: Brionna Maynard MD When: 4 weeks Test Results: Test results from this visit will be discussed in further detail at your follow-up appointment, if applicable. Discharge Plan Admission Primary Reason for Your Visit: Dilation and curettage Attending Provider: Brionna Rodriguez Primary Care Provider: Silas Alvarado Instructions Patient Instructions: Dilation and Curettage Discharge Orders/Prescriptions Prescriptions: New hydrocodone-acetaminophen 5-325 mg Tablet 1 tab PO Q6H PRN PRN (Reason: Pain Score 1-5/10) 1 Days Qty: 3 RF: 0 ibuprofen 600 mg tablet 600 mg PO Q8H PRN (Reason: pain) Qty: 30 RF: 0 Referrals / Follow Up: Silas Alvarado MD [Primary Care Provider] - Disposition Disposition (needs filled in before D/C Order can be placed): Home, Self Care
[2021-05-31 17:30] VITALS: BP 126/80; BP 135/86; PULSE 83; RESP 18; O2SAT 99
--- NOTE | 2021-05-31 23:55 | OP.PCM_ITS ---
Problems Associated Problem List Diagnoses (1) Missed : Report of Operation Date of Procedure: 05/31/21 Pre-Operative Diagnosis: 1. Incomplete miscarriage 2. Retained products of conceptoin Post-Operative Diagnosis: 1. Incomplete miscarriage 2. Retained products of conception Surgery/Procedure Performed:: Suction dilation and curettage Description of Surgical Findings:: thin endometrium sonographically post-op Surgeon: Brionna Rodriguez Type of Anesthesia: Local MAC Estimated Blood Loss (mL): 10 Description of Procedure: Indications: 30yo presents for suction dilation and curettage for hx miscarriage diagnosed approximately 2 weeks ago at 7-8wga. She underwent medical management and repeat US showed thickened endometrium concerning for returned products of conception. She was counseled and opted to proceed with dilation and curettage. Procedural r/b/i/a reviewed. Patient was brought to the operating room and induced under MAC. She was repositioned into dorsal lithotomy. The perineum was prepped and draped in sterile fashion. A speculum was placed vaginally and paracervical block placed and anterior cervical lip was injected with lidocaine 1% at the midline. A single tooth tenaculum was placed at the anterior cervical lip. The cervix was dilated and suction curettage performed using 7mm curved curette under ultrasound guidance. Sharp curettage was performed and again suction curettage performed with no further retrieval of tissue and the uterus was love. The procedure was completed. The tenaculum was removed and its site hemostatic. The speculum was removed from the vagina. Th epatient was placed supine, awak ened, and transferred to the recovery room without complication. Complications None Admit VTE Documentation VTE Present on Admission: No VTE Mechan Device Prophylaxis: [facility] [place] VTE Pharm Prophylaxis ordered?: No
== END 2021-05-31 17:59 | disposition home or self-care (01) ==
LOC: SDC 14:04 → AC 14:06
PROVIDERS: PCP Family Medicine; Referring Provider Obstetrics & Gynecology; Visit Provider Obstetrics & Gynecology
PROC: (CPT 59812; principal; 2021-05-31 15:15)
DX: O03.4 Incomplete spontaneous abortion without complication (principal); F17.200 Nicotine dependence, unspecified, uncomplicated; Z20.822 Contact with and (suspected) exposure to COVID-19
CPT/HCPCS: 01965; 59812; 36415; 85027; 86850; 86900; 86901; 87426; 88305; C9803; J7120

== ENCOUNTER 2021-07-17 15:11 | Outpatient (CLI) | payer BC, SELFPAY ==
[2021-07-17 16:29] LABS: hCG Titer Quant., Serum < 1 mIU/mL (1-3)
[2021-07-17 16:36] LABS: Progesterone Level 0.86 ng/mL (See Comment)
== END 2021-07-17 23:59 | disposition home or self-care (01) ==
PROVIDERS: PCP Family Medicine; Visit Provider Student in an Organized Health Care Education/Training Program
DX: Z13.29 Encounter for screening for other suspected endocrine disorder (principal)
CPT/HCPCS: 36415; 84144; 84702

== ENCOUNTER 2021-08-08 16:53 | Emergency (ER) | payer BC, SELFPAY ==
[2021-08-08 16:54] VITALS: BP 151/101; PULSE 77; RESP 16; TEMP 36.7; O2SAT 99; BMI 42.3
--- NOTE | 2021-08-08 18:29 | EX.ED.DYSGE1 ---
HPI History of Present Illness Chief Complaint: Shortness of Breath Informant: patient Narrative Narrative: Patient sent in here by PCP after calling them after awakening gasping for air. Currently back to normal. She does report snoring at night told by her . Has not had a sleep study. Denies any recent cough. No exertional dyspnea. She had a D&C back in May for missed . She does have history of MTHFR and lupus on aspirin. No history of PE or DVT. Denies any leg swelling. Prior similar symptoms: No PFSH PFSH Medical History Arthritis Gastric reflux History of demise, not currently History of IBS History of stress test Kidney stones Migraine headache Restless legs Smoker Home Medications hydrocodone-acetaminophen 1 tab PO Q6H PRN PRN 1 Days #3 tab 05/31/21 [Rx Last Taken Unknown] ibuprofen 600 mg PO Q8H PRN #30 tab 05/31/21 [Rx Last Taken Unknown] Allergy/AdvReac Type Severity Reaction Status Date / Time No Known Allergies Allergy Verified 08/08/21 16:54 Family History Other Blood clot associated with vein wall inflammation Heart disease Surgical History History of tonsillectomy and adenoidectomy Hx of colonoscopy Hx of dilation and curettage Hx of laparoscopy Hx of wisdom tooth extraction Social History Smoking Status: Light Smoker (<10/day) ROS ROS ED Constitutional Constitutional ED: Denies chills, fever(s) or sweats Eyes Eyes: Denies change in vision ENT ENT ED: Denies dysphagia or sore throat Cardiovascular Cardiovascular: Denies chest pain, leg edema, palpitations or racing heartbeat Respiratory/Chest Respiratory/Chest: Reports dyspnea; Denies cough or dyspnea on exertion Gastrointestinal Gastrointestinal: Denies abdominal pain, diarrhea, nausea or vomiting Genitourinary Genitourinary ED: Denies dysuria, hematuria or urinary frequency Musculoskeletal Musculoskeletal: Denies back pain, extremity pain or neck pain Integumentary Denies rash or wounds Neurologic Neurologic: Denies headache(s), paresthesias or weakness EXAM Physical Exam Const Vital Signs: 08/08/21 16:54 Temperature 98.1 F Temperature Source Temporal Pulse Rate 77 Respiratory Rate 16 Blood Pressure 151/101 H Blood Pressure Mean 117 Pulse Ox 99 Oxygen Delivery Method Room Air Positive well nourished and well developed General Appearance ED: well developed and NAD HEENT Reports moist mucous membranes normocephalic and atraumatic Eyes PERRL, EOMs intact bilaterally and conjunctivae normal General Eye ED: Yes normal appearance of both eyes Neck no lymphadenopathy and supple General: Negative for tenderness Chest Wall Chest: Negative for tenderness Resp normal respiratory effort and normal air movement Resp Narrative: Symmetric breath sounds bilaterally. Effort and Inspection: symmetric chest movement; Negative for respiratory distress Cardio regular rate, regular rhythm and no murmurs Peripheral Pulses: pulses 2+ throughout GI normal to inspection, nondistended, normoactive bowel sounds and non-tender Palpation: Negative for guarding or rebound tenderness present Back/Spine no CVA tenderness and no thoracic nor lumbar tenderness Extremity normal to inspection General Extremety ED: Negative for edema or tenderness General Extremity: Negative for edema Neuro oriented x3 and no sensory deficits noted Sensorium / Orientation: awake and alert Skin no rashes or lesions noted and no wounds MDM MDM MDM Narrative Medical decision making narrative: Patient seen out in triage due to busy department. She had normal lung sounds vital signs are all normal. With her history with snoring waking gasping likely sleep apnea component. She does have risk factors for clotting disorders however denies any exertional dyspnea she is not tachycardic clinically low suspicion for PE. Discussed with patient likely need sleep study as an outpatient. Offered discussed x-rays she is concerned, she is more reassured no imagings at this time. She will follow-up with her PCP. All questions were answered. Patient is being discharged under pandemic conditions under declared global, national and state disaster activation, with limited medical resources. Patient and community understands this. Results discussed in layman's terms to the patient satisfaction. All questions answered in layman's terms. Patient understands importance of follow-up care as directed. Patient has been instructed to return to the ED immediately if new symptoms, problems, or questions occur. We mutually agree with the plan of disposition. The patient understand that they may call or return with any questions or concerns at any time. Discharge Plan Triage Chief Complaint: Shortness of Breath ED Provider: Harry Monsalve Dx/Rx/DC Orders Clinical Impression: Apnea, sleep Instructions: What Are Snoring and Sleep Apnea? Prescriptions: No Action hydrocodone-acetaminophen 5-325 mg Tablet 1 tab PO Q6H PRN PRN (Reason: Pain Score 1-5/10) 1 Days Qty: 3 RF: 0 ibuprofen 600 mg tablet 600 mg PO Q8H PRN (Reason: pain) Qty: 30 RF: 0 Primary Care Provider: Silas Alvarado Referrals: Silas Alvarado MD [Primary Care Provider] - 3-5 Days Activity Restrictions/Additional Instructions: Will need a sleep study as an outpatient. Your vitals are normal. Disposition Disposition: Home, Self Care
== END 2021-08-08 18:43 | disposition home or self-care (01) ==
LOC: ED 18:39
PROVIDERS: Emergency Provider Emergency Medicine; PCP Family Medicine; Visit Provider Emergency Medicine
DX: G47.30 Sleep apnea, unspecified (principal); M32.9 Systemic lupus erythematosus, unspecified; E72.12 Methylenetetrahydrofolate reductase deficiency; F17.200 Nicotine dependence, unspecified, uncomplicated; Z79.82 Long term (current) use of aspirin
CPT/HCPCS: 99282

== ENCOUNTER → 2021-10-12 | Outpatient (CLI) | payer BC, SELFPAY ==
[2021-10-12 16:31] LABS: Progesterone Level 9.61 ng/mL (See Comment)
== END | disposition home or self-care (01) ==
PROVIDERS: PCP Family Medicine; Visit Provider Student in an Organized Health Care Education/Training Program
DX: Z13.29 Encounter for screening for other suspected endocrine disorder (principal)
CPT/HCPCS: 36415; 84144

== ENCOUNTER → 2021-11-14 | Outpatient (CLI) | payer BC, SELFPAY ==
[2021-11-14 15:05] LABS: Progesterone Level 15.39 ng/mL (See Comment)
== END | disposition home or self-care (01) ==
LOC: LAB 13:43
PROVIDERS: PCP Family Medicine; Referring Provider Student in an Organized Health Care Education/Training Program; Visit Provider Student in an Organized Health Care Education/Training Program
DX: Z13.29 Encounter for screening for other suspected endocrine disorder (principal)
CPT/HCPCS: 36415; 84144

== ENCOUNTER → 2021-12-15 | Outpatient (CLI) | payer BC, SELFPAY ==
[2021-12-17 09:10] LABS: Progesterone Level 19.04 ng/mL (See Comment)
== END | disposition home or self-care (01) ==
PROVIDERS: PCP Family Medicine; Visit Provider Student in an Organized Health Care Education/Training Program
DX: Z13.29 Encounter for screening for other suspected endocrine disorder (principal)
CPT/HCPCS: 36415; 84144

== ENCOUNTER → 2022-01-14 | Outpatient (CLI) | payer BC, SELFPAY | END | disposition home or self-care (01) | LOC: LAB 15:08 | PROVIDERS: PCP Family Medicine; Referring Provider Student in an Organized Health Care Education/Training Program; Visit Provider Student in an Organized Health Care Education/Training Program | DX: Z13.29 Encounter for screening for other suspected endocrine disorder (principal) | CPT/HCPCS: 36415; 84144 ==

== ENCOUNTER → 2022-02-14 | Outpatient (CLI) | payer BC, SELFPAY ==
[2022-02-14 17:15] LABS: Progesterone Level 13.62 ng/mL (See Comment)
== END | disposition home or self-care (01) ==
PROVIDERS: PCP Family Medicine
DX: Z13.29 Encounter for screening for other suspected endocrine disorder (principal)
CPT/HCPCS: 36415; 84144

== ENCOUNTER → 2022-03-16 | Outpatient (CLI) | payer SELFPAY ==
[2022-03-18 08:07] LABS: Progesterone Level 20.11 ng/mL (See Comment)
== END | disposition home or self-care (01) ==
PROVIDERS: PCP Family Medicine; Referring Provider Student in an Organized Health Care Education/Training Program; Visit Provider Student in an Organized Health Care Education/Training Program
DX: Z13.29 Encounter for screening for other suspected endocrine disorder (principal)
CPT/HCPCS: 36415; 84144

== ENCOUNTER → 2022-04-15 | Outpatient (CLI) | payer SELFPAY ==
[2022-04-15 11:41] LABS: Progesterone Level 15.88 ng/mL (See Comment)
== END | disposition home or self-care (01) ==
LOC: LAB 10:02
PROVIDERS: PCP Family Medicine
DX: Z13.29 Encounter for screening for other suspected endocrine disorder (principal)
CPT/HCPCS: 36415; 84144

== ENCOUNTER → 2022-07-13 | Outpatient (CLI) | payer BC, SELFPAY ==
[2022-07-15 08:54] LABS: Progesterone Level 10.59 ng/mL (See Comment)
== END | disposition home or self-care (01) ==
LOC: LAB 08:00
PROVIDERS: PCP Family Medicine; Referring Provider Student in an Organized Health Care Education/Training Program; Visit Provider Student in an Organized Health Care Education/Training Program
DX: Z13.29 Encounter for screening for other suspected endocrine disorder (principal)
CPT/HCPCS: 36415; 84144

== ENCOUNTER → 2022-08-12 | Outpatient (CLI) | payer BC, SELFPAY | END | disposition home or self-care (01) | LOC: LAB 15:47 | PROVIDERS: PCP Family Medicine; Referring Provider Student in an Organized Health Care Education/Training Program; Visit Provider Student in an Organized Health Care Education/Training Program | DX: Z13.29 Encounter for screening for other suspected endocrine disorder (principal) | CPT/HCPCS: 36415; 84144 ==

== ENCOUNTER → 2022-09-10 | Outpatient (CLI) | payer BC, SELFPAY ==
[2022-09-10 16:46] LABS: Progesterone Level 8.21 ng/mL (See Comment)
== END | disposition home or self-care (01) ==
LOC: LAB 15:51
PROVIDERS: PCP Family Medicine; Referring Provider Student in an Organized Health Care Education/Training Program; Visit Provider Student in an Organized Health Care Education/Training Program
DX: Z13.29 Encounter for screening for other suspected endocrine disorder (principal)
CPT/HCPCS: 36415; 84144

== ENCOUNTER → 2022-10-11 | Outpatient (CLI) | payer BC, SELFPAY | END | disposition home or self-care (01) | PROVIDERS: PCP Family Medicine | DX: Z13.29 Encounter for screening for other suspected endocrine disorder (principal) | CPT/HCPCS: 36415; 84144 ==

== ENCOUNTER → 2022-11-11 | Outpatient (CLI) | payer BC, SELFPAY ==
[2022-11-11 16:54] LABS: Progesterone Level 2.74 ng/mL (See Comment)
== END | disposition home or self-care (01) ==
LOC: LAB 15:53
PROVIDERS: PCP Family Medicine; Referring Provider Student in an Organized Health Care Education/Training Program; Visit Provider Student in an Organized Health Care Education/Training Program
DX: Z13.29 Encounter for screening for other suspected endocrine disorder (principal)
CPT/HCPCS: 36415; 84144

== ENCOUNTER → 2022-11-14 | Outpatient (CLI) | payer BC, SELFPAY ==
[2022-11-14 16:55] LABS: Progesterone Level 10.34 ng/mL (See Comment)
== END | disposition home or self-care (01) ==
LOC: LAB 15:58
PROVIDERS: PCP Family Medicine; Referring Provider Student in an Organized Health Care Education/Training Program; Visit Provider Student in an Organized Health Care Education/Training Program
DX: Z13.29 Encounter for screening for other suspected endocrine disorder (principal)
CPT/HCPCS: 36415; 84144

== ENCOUNTER → 2022-12-16 | Outpatient (CLI) | payer BC, SELFPAY ==
[2022-12-16 17:45] LABS: Progesterone Level 11.88 ng/mL (See Comment)
== END | disposition home or self-care (01) ==
LOC: LAB 15:46
PROVIDERS: PCP Family Medicine; Referring Provider Student in an Organized Health Care Education/Training Program; Visit Provider Student in an Organized Health Care Education/Training Program
DX: Z13.29 Encounter for screening for other suspected endocrine disorder (principal)
CPT/HCPCS: 36415; 84144

== ENCOUNTER 2022-12-20 15:45 | Outpatient (RCR) | payer BC, SELFPAY ==
[2022-12-20 16:37] LABS: hCG Titer Quant., Serum 14 mIU/mL (1-3)
== END 2022-12-20 18:00 | disposition home or self-care (01) ==
LOC: LAB 15:45
PROVIDERS: PCP Family Medicine; Referring Provider Student in an Organized Health Care Education/Training Program; Visit Provider Student in an Organized Health Care Education/Training Program
DX: Z32.00 Encounter for pregnancy test, result unknown (principal)
CPT/HCPCS: 36415; 84702

== ENCOUNTER 2022-12-25 15:45 | Outpatient (RCR) | payer BC, SELFPAY ==
[2022-12-23 09:01] LABS: hCG Titer Quant., Serum 57 mIU/mL (1-3)
[2022-12-25 19:10] LABS: hCG Titer Quant., Serum 127 mIU/mL (1-3)
== END 2023-01-20 18:00 | disposition home or self-care (01) ==
LOC: LAB 15:45
PROVIDERS: PCP Family Medicine; Referring Provider Student in an Organized Health Care Education/Training Program; Visit Provider Student in an Organized Health Care Education/Training Program
DX: Z32.00 Encounter for pregnancy test, result unknown (principal)
CPT/HCPCS: 36415; 84702

== ENCOUNTER 2022-12-31 15:43 | Outpatient (RCR) | payer BC, SELFPAY ==
[2022-12-27 16:43] LABS: hCG Titer Quant., Serum 260 mIU/mL (1-3)
[2022-12-31 17:34] LABS: hCG Titer Quant., Serum 1274 mIU/mL (1-3)
== END 2022-12-31 18:00 | disposition home or self-care (01) ==
LOC: LAB 15:43
PROVIDERS: PCP Family Medicine; Referring Provider Student in an Organized Health Care Education/Training Program; Visit Provider Student in an Organized Health Care Education/Training Program
DX: Z32.00 Encounter for pregnancy test, result unknown (principal)
CPT/HCPCS: 36415; 84702

== ENCOUNTER 2023-01-17 08:42 | Emergency (ER) | payer BC, SELFPAY ==
[2023-01-17 08:44] VITALS: BP 134/92; PULSE 89; RESP 18; TEMP 36.5; O2SAT 99; BMI 40.0
--- NOTE | 2023-01-17 08:47 | EDS_ITS ---
HPI History of Present Illness Chief Complaint: Shortness of Breath PFSH PFSH Medical History Arthritis Gastric reflux History of demise, not currently History of IBS History of stress test Kidney stones Migraine headache Restless legs Smoker Home Medications hydrocodone-acetaminophen 5-325mg 5mg-325mg 1 tab PO Q6H PRN PRN Pain Score 1- 5/10 1 day #3 tabs 05/31/21 [Rx Last Taken Unknown] ibuprofen 600 mg tablet 600 mg PO Q8H PRN pain #30 tabs 05/31/21 [Rx Last Taken Unknown] Allergy/AdvReac Type Severity Reaction Status Date / Time No Known Allergies Allergy Verified 01/17/23 08:46 Family History Other Blood clot associated with vein wall inflammation Heart disease Surgical History History of tonsillectomy and adenoidectomy Hx of colonoscopy Hx of dilation and curettage Hx of laparoscopy Hx of wisdom tooth extraction Social History Smoking Status: Light Smoker (<10/day) EXAM Physical Exam Const Vital Signs: 01/17/23 08:44 01/17/23 09:00 01/17/23 09:02 Temperature 97.7 F L Temperature Source Temporal Pulse Rate 89 Respiratory Rate 18 Respiratory Effort Short of Breath Blood Pressure 134/92 H Blood Pressure Mean 106 Pulse Ox 99 96 Oxygen Delivery Method Room Air Room Air Room Air MDM MDM MDM Narrative Medical decision making narrative: HISTORY OF PRESENT ILLNESS: 32-year-old female. Here with shortness of breath and chest tightness. She states she was laughing with her significant other yesterday when she noted sharp pain along bilateral rib margins. Since then she had worsening pain with deep breathing, shortness of breath with exertion. Denies cough, runny nose, sore throat, loss of taste or smell or diarrhea. The patient denies recent surgery in the last 4 weeks or immobilization in the last 3 days, denies previous diagnosis of DVT or PE, hemoptysis, unilateral leg swelling or malignancy with treatment the last 6 months. No estrogen use noted. Patient notes she has continued to smoke despite being . She denies any abdominal pain, vaginal bleeding, passage of any tissue. She notes she is 8 weeks . She is a G4, P0 with 3 miscarriages. REVIEW OF SYSTEMS: Pertinent positives: Shortness of breath, rib pain Pertinent negatives: Syncope, chest pain PHYSICAL EXAM: Nursing triage notes reviewed, Vital signs reviewed Constitutional: please see mdm HENT: MMM Eyes: Pupils equal round and reactive to light, Extraocular muscles intact Neck: No stridor, no JVD, full neck ROM Lungs: Clear to auscultation, No wheezing or rales. No increased work of breathing, no conversational dyspnea, no accessory muscle use, no nasal flaring. No respiratory distress noted Heart: Regular rate and rhythm, No murmurs, No rubs and No gallops, 2+ distal pulses (radial, femoral, posterior tibial) in all extremities Abdomen: Soft, there is no tenderness, rigidity, rebound or guarding, no obvious peritoneal signs, no palpable pulsatile abdominal masses, no auscultated abdominal bruit : No CVAT Extremities: No edema Neuro: No focal neurological deficits, cranial nerves II through XII intact, 5/5 strength in all extremities. Intact sensation to light touch in all extremities, 2+ reflexes bilateral patella tendons. Normal gait. No ataxia. Skin: No rash or lesions noted MEDICAL DECISION MAKING: Chief Complaint: Shortness of breath External records reviewed: No recent catheterizations, stress test or echocardiograms noted in the chart Factors affecting care: , Social determinants of health: Smoker ALL IMAGES (IF OBTAINED) HAVE BEEN PERSONALLY REVIEWED AND INTERPRETED BY MYSELF. EKG with normal sinus rhythm, normal axis, normal intervals, no MDM Narrative: Patient was hemodynamically stable, afebrile, nontoxic-appearing. Exam without focal cardiopulmonary normalities. The patient appeared comfortable. She is not hypoxic she was having increased work of breathing there is no cyanosis. I considered the following differential diagnosis: Pneumonia, COVID, flu, PE, ACS, arrhythmia, asthma exacerbation, heart failure, rib injury I considered pulm embolism however the patient is a low risk Wells score. As such further testing is not indicated at this time. She had no active chest pa in making ACS less likely. Obtained an EKG to further elucidate if there is any signs of right heart strain, signs of arrhythmia abnormal heart rhythm or myocardial ischemia. Her lungs were clear no signs of asthma or other obstructive etiology. She had no infectious symptoms such as cough, fever, sore throat or loss of taste or smell. Evalose patient for viral infection. There is no fever there is no focal consolidative process on auscultation for pneumonia. I suspect the patient has a musculoskeletal rib injury given laughing and then sudden pain. I obtained an x-ray to rule out rib fracture. X-ray showed no evidence of pneumothorax, pneumonia, rib fracture. Provide incentive spirometer. Encouraged to return if symptoms change or worsen. The patient and/or family, caregivers express understanding. The patient and/or family, caregivers agrees with the plan. Shared decision making: I will have a discussion with the patient and or visitors regarding risk/benefits of further testing or admission. They will be made aware of of the risk/benefits inherent in this decision they will be given the opportunity to voice understanding. Total critical care time today provided was at least 0 minutes. This excludes separately billable procedures. Critical care time (if documented) is secondary to the patient having high probability of clinically significant/life threatening deterioration in the patient's condition which required my urgent intervention. Radiography Chest X-Ray - ED: Read by ED Physician Diagnostic Testing: Clinical Impression(s) from Imaging Studies Chest X-Ray 01/17/23 09:10 IMPRESSION: Normal x-ray examination of the chest. Electronically Signed: Zaid Medina MD at 9:37 EDT , I have personally reviewed the patient's chest x-ray. Chest x-ray is unremarkable for pulmonary edema, pneumothorax, pneumonia or focal cardiopulmonary abnormality. Discharge Plan Triage Chief Complaint: Shortness of Breath ED Provider: [facility] Wilburn Dx/Rx/DC Orders Prescriptions: No Action hydrocodone-acetaminophen 5-325 mg Tablet 1 tab PO Q6H PRN PRN (Reason: Pain Score 1-5/10) 1 Days Qty: 3 0RF ibuprofen 600 mg tablet 600 mg PO Q8H PRN (Reason: pain) Qty: 30 0RF Primary Care Provider: Silas Alvarado Referrals: Silas Alvarado MD [Primary Care Provider] -
[2023-01-17 09:00] VITALS: O2SAT 97
--- NOTE | 2023-01-17 09:00 | EKG12_ITS ---
Test Reason : sob Blood Pressure : / mmHG Vent. Rate : 074 BPM Atrial Rate : 074 BPM P-R Int : 122 ms QRS Dur : 090 ms QT Int : 370 ms P-R-T Axes : 028 -07 010 degrees QTc Int : 410 ms Normal sinus rhythm Normal ECG Confirmed by MARLIN BRISCOE, TEGAN ([id number]), scientific publications editor ARIEL BYRNE ([id number]) on 01/18/2023 10:01:09 AM Referred By: Damian Confirmed By:TEGAN ISAAC MD
[2023-01-17 09:02] VITALS: O2SAT 96
--- NOTE | 2023-01-17 09:10 | RAD_ITS ---
STUDY: X-RAY CHEST REASON FOR EXAM: Female, 32 years old. SOB, rib pain TECHNIQUE: PA and lateral views of the chest. COMPARISON: Comparison is made with prior study dated November 29, 2017. FINDINGS: EKG electrodes are seen. The lungs are clear and expanded. There is no demonstrated pleural abnormality. Normal size heart. Normal mediastinum and makeda. Normal visualized pulmonary arteries. Normal visualized aortic arch and descending thoracic aorta. Normal visualized thoracic spine. Normal visualized ribs, clavicles, and shoulders. There is no demonstrated abnormality of the visualized soft tissue structures of the upper abdomen. RAD/Chest PA and Lateral IMPRESSION: Normal x-ray examination of the chest. Electronically Signed: Zaid Medina MD at 9:37 EDT ,
[2023-01-17 11:00] VITALS: BP 127/81; PULSE 69; RESP 14; O2SAT 98
== END 2023-01-17 11:01 | disposition home or self-care (01) ==
PROVIDERS: Emergency Provider Emergency Medicine; PCP Family Medicine; Visit Provider Emergency Medicine
DX: O99.891 Other specified diseases and conditions complicating pregnancy (principal); O99.331 Smoking (tobacco) complicating pregnancy, first trimester; F17.200 Nicotine dependence, unspecified, uncomplicated; R06.02 Shortness of breath; Z3A.08 8 weeks gestation of pregnancy
CPT/HCPCS: 71046; 93005; 94668; 99282

== ENCOUNTER → 2023-01-20 | Outpatient (CLI) | payer BC, SELFPAY ==
[2023-01-20 17:13] LABS: Absolute Lymphocyte Count 4.51 X10^3/uL (0.83-4.51); Absolute Neutrophil Count 10.5 X10^3/uL (2.0-7.7); Basophil# 0.09 X10^3/uL; Basophil% 0.6 % (0-1); Eosinophil# 0.14 X10^3/uL; Eosinophils% 0.9 % (0-5); Hematocrit 43.5 % (37-47); Hemoglobin 14.7 g/dL (12.0-15.0); Lymphocyte # 4.51 X10^3/ul (0.83-4.51); Lymphocyte % 27.8 % (19-41); Mean Corp Hgb Conc 33.8 g/dL (32-36); Mean Corpuscular Hgb 31.1 pg (27.0-32.0); Mean Corpuscular Volume 92.2 fL (81-99); Mean Platelet Vol. 11.2 fl (6.2-12.0); Monocyte# 0.89 X10^3/uL; Monocyte% 5.5 % (0-10); NRBC Flagged by Analyzer 0 % (0-5); Neutrophil # 10.52 X10^3/uL (2.7-7.7); Neutrophil % 64.6 % (47-70); POSITIVE MORPHOLOGY YES; Platelet Count 316 K/mm3 (150-450); RBC Distribution Width CV 12.4 % (11.6-14.6); RBC Distribution Width SD 41.7 fl (35.1-43.9); Red Blood Count 4.72 M/mm3 (4.2-5.4); White Blood Count 16.3 K/mm3 (4.4-11.0)
[2023-01-20 17:23] LABS: Differential Indicated SCAN CRITERIA MET
[2023-01-20 18:13] LABS: Differential Comment SCANNED; Reactive Lymphocyte 1+
[2023-01-20 18:22] LABS: HIV - WCH Non-Reactive (Nonreactive); Hepatitis B Surface Antigen Non-Reactive (Nonreactive); Hepatitis C Antibody Non-Reactive (Nonreactive); Rubella IgG Reactive (Nonreactive); Syphilis Antibodies Non-reactive
[2023-01-22 05:07] LABS: V-Zoster IgG (Immunity) 3497 index (Immune >165)
== END | disposition home or self-care (01) ==
LOC: WOBLAB 16:25
PROVIDERS: PCP Family Medicine; Visit Provider Student in an Organized Health Care Education/Training Program
DX: Z34.81 Encounter for supervision of other normal pregnancy, first trimester (principal)
CPT/HCPCS: 36415; 85025; 86703; 86762; 86780; 86787; 86803; 87086; 87088; 87340

== ENCOUNTER → 2023-02-19 | Outpatient (CLI) | payer BC, SELFPAY ==
[2023-02-19 16:46] LABS: Glucose Challenge Gest 1H 50g 136 mg/dL (70-140)
== END | disposition home or self-care (01) ==
PROVIDERS: Obstetrics & Gynecology; PCP Family Medicine; Visit Provider Student in an Organized Health Care Education/Training Program
DX: N91.2 Amenorrhea, unspecified (principal)
CPT/HCPCS: 36415; 82950

== ENCOUNTER 2023-08-15 10:05 | Inpatient (IN) | payer BC, SELFPAY ==
[2023-08-15 10:36] VITALS: BP 115/81; PULSE 96
--- OUTSIDE RECORDS SUMMARY | 2023-08-15 10:52 | XMS RPT_ITS | CCD ---
Author Name Unknown Address [id number] [place] [address] Organization [facility] Care Team Providers Care Washery Boss Name Role Phone CHIQUIS BROWN Unavailable Unavailable CHIQUIS BROWN Unavailable Unavailable [facility] Unavailable Unavailable Emani Austin Attending Unavaila Emani Alvarez Referring Unavaila wiley Padilla Giselle Primary Care Unavailable SILVIO MANCILLA Admitting Unavailable SILVIO MANCILLA Attending Unavailable SILVIO MANCILLA Primary Care Unavailable NO, DOCTOR ON Consulting Unavailable José Luis Shepherd Jr. Unavailable Juana Alvarado MD Primary Care Provider José Luis Shepherd Jr. Unavailable Juana Alvarado MD Primary Care Provider ROSALBA FLORES Attending Unavailable UJANA ALVARADO Primary Care Unavailab JUANA Devi Primary Care Unavailab DAMARI Bowden Attending Unavailable JUANA ALVARADO Primary Care Unavailab NEO Kirby Referring Unavailable VAIBHAV PATEL Attending Unavailable JUANA ALVARADO Primary Care Unavailab DEVANG Goodson Attending Unavailable JUANA ALVARADO Primary Care Unavailab KVNG Kidd Attending Unavail able JUANA ALVARADO Primary Care Unavailab NEO Kirby Referring Unavailable JUANA ALVARADO Primary Care Unavailab donna MELENDEZ KARMARK Referring Unavailable JUANA ALVARADO Primary Care Unavailab DEVANG Goodson Attending Unavailable JUANA ALVARADO Primary Care Unavailab NEO Kirby Attending Unavailable BURSLEY, CHRISTOPHER B Primary Care Unavailab NEO Kirby Referring Unavailable BURSLEY, CHRISTOPHER B Primary Care Unavailab le HUYLEY, CHRISTOPHER B Primary Care Unavailab DAMARI Bowden Attending Unavailable BURSLEY, CHRISTOPHER B Primary Care Unavailab DEVANG Goodson Attending Unavailable HUYLEY, CHRISTOPHER B Primary Care Unavailab NEO Kirby Referring Unavailable BURSLEY, CHRISTOPHER B Primary Care Unavailab le HUYLEY, CHRISTOPHER B Primary Care Unavailab NEO Kirby Referring Unavailable MELIZA LIRA Attending Unavailable HUYLEY, CHRISTOPHER B Primary Care Unavailab EMMA Alvarez Attending Unavailable ANTHONY, CHRISTOPHER B Primary Care Unavailab donna MELENDEZ, NEO Referring Unavailable FLORENCIA MARTINEZ Attending Unavailable ANTHONY, CHRISTOPHER B Primary Care Unavailab NEO Kirby Attending Unavailable HUYLEY, CHRISTOPHER B Primary Care Unavailab MELIZA Cervantes Referring Unavailable BURSLEY, CHRISTOPHER B Primary Care Unavailab donna MELENDEZ, NEO Referring Unavailable BURSLEY, CHRISTOPHER B Primary Care Unavailab NEO Kirby Referring Unavailable BURSLEY, CHRISTOPHER B Primary Care Unavailab le WISNAZIA, MARLY Referring Unavailable BURSLEY, CHRISTOPHER B Primary Care Unavailab le ABBIE, MARLY Referring Unavailable NEO MELENDEZ Attending Unavailable HUYLEY, CHRISTOPHER B Primary Care Unavailab le BURSLEY, CHRISTOPHER B Primary Care Unavailab le ABBIE, MARLY Attending Unavailable HUYLEY, CHRISTOPHER B Primary Care Unavailab le WISWELL, MARLY Referring Unavailable BURSLEY, CHRISTOPHER B Primary Care Unavailab donna PARR, MARLY Referring Unavailable FLORENCIA MARTINEZ Attending Unavailable HUYLEY, CHRISTOPHER B Primary Care Unavailab donna MELENDEZ, KARMARK Referring Unavailable BURSLEY, CHRISTOPHER B Primary Care Unavailab le BURSLEY, CHRISTOPHER B Primary Care Unavailab MELIZA Cervantes Attending Unavailable HUYLEY, CHRISTOPHER B Primary Care Unavailab KAYLEE Zarco Attending Unavailable LLUVIA MOURA Attending Unavailable BURSLEY, CHRISTOPHER B Primary Care Unavailab donna MELENDEZ, KARMARK Referring Unavailable BURSLEY, CHRISTOPHER B Primary Care Unavailab NEO Kirby Referring Unavailable BURSLEY, CHRISTOPHER B Primary Care Unavailab NEO Kirby Attending Unavailable JUANA ALVARADO Primary Care Unavailab JUANA Devi Primary Care Unavailab MARLY Peña Attending Unavailable JUANA ALVARADO Primary Care Unavailab NEO Kirby Referring Unavailable JUANA ALVARADO Primary Care Unavailab MELIZA Cervantes Attending Unavailable JUANA ALVARADO Primary Care Unavailab ASPEN Maurice Attending Unavailable NEO MELENDEZ Referring Unavailable JUANA ALVARADO Primary Care Unavailab ASPEN Maurice Referring Unavailable JUANA ALVARADO Primary Care Unavailab NEO Kirby Referring Unavailable JUANA ALVARADO Primary Care Unavailab NEO Kirby Attending Unavailable JUANA ALVARADO Primary Care Unavailab DEVANG Goodson Attending Unavailable JUANA ALVARADO Primary Care Unavailab EMMA Alvarez Attending Unavailable NEO MELENDEZ Referring Unavailable JUANA ALVARADO Primary Care Unavailab ASPEN Maurice Attending Unavailable JUANA ALVARADO Primary Care Unavailab NEO Kirby Referring Unavailable Medications Current Medications Medication Drug Class(es) Dates Sig (Normalized) Sig (Original) 3 ml insulin isophane, human 100 unt/ml pen injector (20 sources) Start: 06-06-2023 End: 09-04-2023 inject 80 [IU] by subcutaneous injection once daily at bedtime insulin NPH subcutaneous pen Indications: Diabetes mellitus type 1, controlled, without complications (HCC) Inject 80 Units subcutaneously daily at bedtime. 24 mL 2 06/06/2023 09/04/2023 Active Completed/Discontinued Medications Medication Drug Class(es) Dates Sig (Normalized) Sig (Original) aspirin 81 mg chewable tablet (20 sources) Platelet Aggregation Inhibitor, Nonsteroidal Anti-inflammatory Drug aspirin 81 mg chewable tablet Take 81 mg by mouth. 0 Active Problems Active Problems Problem Classification Problem Date Documented Date Episodic/Chronic Administrative/social admission (1 source) Dietary counseling and surveillance; Translations: [Dietary counseling] Onset: 06-09-2023 Episodic Coagulation and hemorrhagic disorders (10 sources) Lupus anticoagulant disorder; Translations: [Lupus anticoagulant syndrome] 12-09-2017 Chronic Diabetes mellitus without complication (3 sources) Type 1 diabetes mellitus without complication; Translations: [Type 1 diabetes mellitus without complications] Onset: 06-17-2023 06-06-2023 Chronic Diabetes or abnormal glucose tolerance complicating ; childbirth; or the puerperium (20 sources) Gestational diabetes mellitus; Translations: [Gestational diabetes mellitus in , diet controlled] Onset: 04-07-2023 04-07-2023 Episodic Immunizations and screening for infectious disease (5 sources) Encounter for observation for suspected exposure to other biological agents ruled out; Translations: [Patient encounter status] Onset: 01-03-2020 Episodic Other complications of (3 sources) Maternal obesity complicating , childbirth and the puerperium, antepartum; Translations: [Obesity complicating , second trimester] 07-28-2023 Chronic Other complications of (1 source) History of with abortive outcome; Translations: [Supervision of with other poor reproductive or obstetric history, second trimester] 03-17-2023 Episodic Other complications of (3 sources) High risk ; Translations: [Supervision of high risk , unspecified, second trimester] 03-17-2023 Episodic Other complications of (20 sources) Maternal tobacco use; Translations: [Smoking (tobacco) complicating , unspecified trimester] 03-05-2023 Episodic Other complications of (9 sources) Pruritus of ; Translations: [Diseases of the skin and subcutaneous tissue complicating , third trimester] Onset: 07-08-2023 07-08-2023 Episodic Other complications of (1 source) Diseases of the skin and subcutaneous tissue complicating , third trimester; Translations: [Pruritus of in third trimester] Onset: 07-08-2023 Episodic Other complications of (1 source) Supervision of high risk , unspecified, second trimester; Translations: [Supervision of high risk in second trimester] Onset: 06-10-2023 Episodic Other endocrine disorders (20 sources) Polycystic ovary syndrome; Translations: [Polycystic ovarian syndrome] 12-09-2017 Chronic Other endocrine disorders (1 source) Polycystic ovarian syndrome; Translations: [PCOS (polycystic ovarian syndrome)] Onset: 12-09-2017 Chronic Other inflammatory condition of skin (1 source) Pruritus, unspecified; Translations: [Pruritus of in third trimester] Onset: 07-08-2023 Episodic Other nutritional; endocrine; and metabolic disorders (20 sources) Body mass index 30+ - obesity; Translations: [Obesity, unspecified] 12-09-2017 Chronic Other nutritional; endocrine; and metabolic disorders (1 source) Severe obesity; Translations: [Morbid (severe) obesity due to excess calories] 03-17-2023 Chronic Other nutritional; endocrine; and metabolic disorders (1 source) Morbid (severe) obesity due to excess calories; Translations: [Class 3 severe obesity with body mass index (BMI) of 40.0 to 44.9 in adult, unspecified obesity type, unspecified whether serious comorbidity present (HCC)] Onset: 04-01-2023 Chronic Other nutritional; endocrine; and metabolic disorders (1 source) Body mass index (BMI) 40.0-44.9, adult; Translations: [Class 3 severe obesity with body mass index (BMI) of 40.0 to 44.9 in adult, unspecified obesity type, unspecified whether serious comorbidity present (HCC)] Onset: 04-01-2023 Chronic Other screening for suspected conditions (not mental disorders or infectious disease) (2 sources) Patient encounter status; Translations: [Encounter for screening for lipoid disorders] Episodic Polyhydramnios and other problems of amniotic cavity (10 sources) Polyhydramnios; Translations: [Polyhydramnios, third trimester, not applicable or unspecified] Onset: 07-08-2023 07-08-2023 Episodic Residual codes; unclassified (1 source) Obstructive sleep apnea syndrome; Translations: [Obstructive sleep apnea (adult) (pediatric)] Chronic Residual codes; unclassified (4 sources) Personal history of other complications of , childbirth and the puerperium; Translations: [Personal history of comp of preg, chldbrth and the puerp] Onset: 07-10-2018 Episodic Residual codes; unclassified (8 sources) Tobacco use and exposure - finding; Translations: [Tobacco use] 12-09-2017 Episodic Residual codes; unclassified (20 sources) Hereditary disorder of endocrine system; Translations: [Genetic susceptibility to other disease] 12-09-2017 Episodic Residual codes; unclassified (1 source) Gestation period, 16 weeks; Translations: [16 weeks gestation of ] 03-17-2023 Episodic Residual codes; unclassified (20 sources) History of intrauterine ; Translations: [Personal history of other complications of , childbirth and the puerperium] Onset: 03-05-2023 03-17-2023 Episodic Residual codes; unclassified (2 sources) Gestation period, 18 weeks; Translations: [18 weeks gestation of ] 04-01-2023 Episodic Residual codes; unclassified (1 source) Gestation period, 24 weeks; Translations: [24 weeks gestation of ] 05-13-2023 Episodic Residual codes; unclassified (2 sources) Gestation period, 35 weeks; Translations: [35 weeks gestation of ] 07-28-2023 Episodic Residual codes; unclassified (2 sources) Gestation period, 36 weeks; Translations: [36 weeks gestation of ] 08-05-2023 Episodic Residual codes; unclassified (1 source) Gestation period, 37 weeks; Translations: [37 weeks gestation of ] 08-12-2023 Episodic Residual codes; unclassified (1 source) 33 weeks gestation of ; Translations: [33 weeks gestation of ] Onset: 07-14-2023 Episodic Residual codes; unclassified (1 source) 32 weeks gestation of ; Translations: [32 weeks gestation of ] Onset: 07-08-2023 Episodic Residual codes; unclassified (1 source) 29 weeks gestation of ; Translations: [29 weeks gestation of ] Onset: 06-17-2023 Episodic Residual codes; unclassified (1 source) 21 weeks gestation of ; Translations: [21 weeks gestation of ] Onset: 06-10-2023 Episodic Residual codes; unclassified (1 source) 24 weeks gestation of ; Translations: [24 weeks gestation of ] Onset: 06-10-2023 Episodic Unclassified (1 source) Unknown / UNK(Unknown) Onset: 10-22-2017 Viral infection (20 sources) Human papilloma virus infection; Translations: [Papillomavirus as the cause of diseases classified elsewhere] 12-09-2017 Episodic Past or Other Problems Problem Classification Problem Date Documented Da te Episodic/Chronic Calculus of urinary tract (20 sources) History of calculus of kidney; Translations: [Personal history of urinary calculi] Onset: 03-05-2023 03-05-2023 Episodic Hemorrhage during ; abruptio placenta; placenta previa (20 sources) Antepartum hemorrhage; Translations: [Antepartum hemorrhage, unspecified, unspecified trimester] Onset: 03-05-2023 03-05-2023 Episodic Other complications of (20 sources) Bacterial vaginosis in ; Translations: [Infection of other part of genital tract in , unspecified trimester] Onset: 03-05-2023 03-05-2023 Episodic Other complications of (1 source) Supervision of with other poor reproductive or obstetric history, unspecified trimester; Translations: [H/O intrauterine , currently ] Onset: 05-13-2023 Episodic Other complications of (1 source) Smoking (tobacco) complicating , unspecified trimester; Translations: [Tobacco use during , antepartum] Onset: 03-05-2023 Episodic Other complications of (1 source) Supervision of with other poor reproductive or obstetric history, second trimester; Translations: [History of loss in prior , currently in second trimester] Onset: 04-01-2023 Episodic Other and delivery including normal (20 sources) Normal ; Translations: [Encounter for supervision of other normal , second trimester] Onset: 03-05-2023 03-17-2023 Episodic Residual codes; unclassified (1 source) 18 weeks gestation of ; Translations: [18 weeks gestation of ] Onset: 05-13-2023 Episodic Residual codes; unclassified (1 source) 16 weeks gestation of ; Translations: [16 weeks gestation of ] Onset: 04-01-2023 Episodic Screening and history of mental health and substance abuse codes (20 sources) H/O: depression; Translations: [Personal history of other mental and behavioral disorders] Onset: 03-05-2023 03-05-2023 Episodic Unclassified (1 source) Maternal care for intrauterine , fetus 1 Onset: 10-22-2017 Results Test Name Value Interpretation Reference Range Facil ity Vital Signs Date Time Vital Sign Value Performing Clinician Cristina soliz 08-12-2023 12:26-0500 Diastolic blood pressure 76 mm[Hg] Ob Ultrasound Work Phone: [facility] 08-12-2023 12:26-0500 Systolic blood pressure 112 mm[Hg] Ob Ultrasound Work Phone: [facility] 08-08-2023 14:23-0500 Body weight 124.56 kg Aspen Mcguire APRN.CNM Work Phone: [facility] 08-08-2023 14:23-0500 Diastolic blood pressure 84 mm[Hg] Aspen Mcguire DRAWING IN HAND.CNM Work Phone: [facility] 08-08-2023 14:23-0500 Systolic blood pressure 122 mm[Hg] Aspen Mcguire DRAWING IN HAND.CNM Work Phone: [facility] 08-05-2023 15:15-0500 Body weight 123.38 kg Aspen Mcguire DRAWING IN HAND.CNM Work Phone: [facility] 08-05-2023 15:15-0500 Diastolic blood pressure 80 mm[Hg] Aspen Mcguire DRAWING IN HAND.CNM Work Phone: [facility] 08-05-2023 15:15-0500 Systolic blood pressure 134 mm[Hg] Aspen Mcguire DRAWING IN HAND.CNM Work Phone: [facility] 07-31-2023 14:51-0500 Body weight 122.92 kg Marly Parr MD Work Phone: [facility] 07-31-2023 14:51-0500 Diastolic blood pressure 78 mm[Hg] Marly Parr MD Work Phone: [facility] 07-31-2023 14:51-0500 Systolic blood pressure 136 mm[Hg] Marly Parr MD Work Phone: [facility] 07-28-2023 15:00-0500 Diastolic blood pressure 76 mm[Hg] Ob Ultrasound Work Phone: [facility] 07-28-2023 15:00-0500 Systolic blood pressure 124 mm[Hg] Ob Ultrasound Work Phone: [facility] 05-26-2023 14:59-0500 Body height 170.[address] [facility] 05-26-2023 14:59-0500 Body weight 118.[address] [facility] 05-13-2023 13:27-0500 Body weight 119.3 kg Meliza Lira MD Work Phone: [facility] 05-13-2023 13:27-0500 Diastolic blood pressure 80 mm[Hg] Meliza Lira MD Work Phone: [facility] 05-13-2023 13:27-0500 Systolic blood pressure 126 mm[Hg] Meliza Lira MD Work Phone: [facility] 05-13-2023 13:10-0500 Body weight 119.66 kg Vaibhav Patel MD Work Phone: [facility] 05-13-2023 13:10-0500 Diastolic blood pressure 80 mm[Hg] Vaibhav Patel MD Work Phone: [facility] 05-13-2023 13:10-0500 Systolic blood pressure 126 mm[Hg] Vaibhav Patel MD Work Phone: [facility] 04-09-2023 14:36-0400 Body weight 121.02 kg Devang Lizabeth DO Work Phone: [facility] 04-09-2023 14:36-0400 Diastolic blood pressure 67 mm[Hg] Devang Lizabeth DO Work Phone: [facility] 04-09-2023 14:36-0400 Heart rate 102 /min Devang Lizabeth DO Work Phone: [facility] 04-09-2023 14:36-0400 Systolic blood pressure 109 mm[Hg] Devang Lizabeth DO Work Phone: [facility] 03-17-2023 11:19-0400 Body height 170.2 cm Marly Parr MD Work Phone: [facility] 03-17-2023 11:19-0400 Body weight 119.11 kg Marly Parr MD Work Phone: [facility] 03-17-2023 11:19-0400 Diastolic blood pressure 90 mm[Hg] Marly Parr MD Work Phone: [facility] 03-17-2023 11:19-0400 Systolic blood pressure 120 mm[Hg] Marly Parr MD Work Phone: [facility] 06-26-2022 16:50-0500 Body height 167.2 cm Kailee Podlogar DRAWING IN HAND.FAMILY EDUCATOR Work Phone: [facility] 06-26-2022 16:50-0500 Body weight 114.49 kg Kailee Podlogar DRAWING IN HAND.FAMILY EDUCATOR Work Phone: [facility] 06-26-2022 16:50-0500 Diastolic blood pressure 84 mm[Hg] Kailee Podlogar DRAWING IN HAND.FAMILY EDUCATOR Work Phone: [facility] 06-26-2022 16:50-0500 Heart rate 71 /min Kailee Podlogar DRAWING IN HAND.FAMILY EDUCATOR Work Phone: [facility] 06-26-2022 16:50-0500 Respiratory rate 18 /min Kailee Podlogar DRAWING IN HAND.FAMILY EDUCATOR Work Phone: [facility] 06-26-2022 16:50-0500 SaO2% (BldA) [Mass fraction] 99 % Kailee Podlogar DRAWING IN HAND.FAMILY EDUCATOR Work Phone: [facility] 06-26-2022 16:50-0500 Systolic blood pressure 122 mm[Hg] Kailee Podlogar DRAWING IN HAND.FAMILY EDUCATOR Work Phone: [facility] Encounters Encounter Date Encounter Type Care Provider Facility Start: 08-13-2023 End: 08-13-2023 ambulatory [facility] Facility:[facility] Start: 08-12-2023 End: 08-12-2023 [facility] Facility:[facility] Start: 08-12-2023 End: 08-12-2023 Patient encounter procedure Manager [facility] Work Phone: OB/Gynecology Procedures Date Procedure Procedure Detail Performing Clinician Start: 08-12-2023 Us preg uterus after 1st trimest 06/23 gestation Neo Melendez MD Work Phone: Start: 08-08-2023 URINE OB DIP B/O Klaudia Mcguire DRAWING IN HAND.CNM Work Phone: Start: 08-05-2023 URINE OB DIP B/O Pancho Lira MD Work Phone: Start: 08-05-2023 Us preg uterus after 1st trimest 06/23 gestation Neo Melendez MD Work Phone: Start: 07-31-2023 URINE OB DIP B/O Marly magdaleno MD Work Phone: Start: 07-28-2023 Us preg uterus after 1st trimest 06/23 gestation Neo Melendez MD Work Phone: Start: 05-22-2023 Follow-up visit Follow Up DEVANG Wetzel LIZABETH Start: 05-13-2023 Us preg uterus after 1st trimest 06/23 gestation Neo Melendez MD Work Phone: Start: 04-09-2023 Hemoglobin A1c/Hemoglobin.total in Blood Devang Damari Barone DO Work Phone: Start: 04-01-2023 URINE OB DIP B/O Neo Melendez MD Work Phone: Start: 04-01-2023 Us preg uterus after 1st trimest 06/23 gestation Marly Parr MD Work Phone: Start: 03-17-2023 INFLUENZA VACCINE, A GE 6 MO - 64 YR, QUADRIVALENT (AFLURIA, FLULAVAL, FLUZONE) Marly Parr MD Work Phone: Start: 01-20-2023 Antibody screen Meliza Lira MD Work Phone: Start: 01-20-2023 HEP ACUTE PANEL BL [facility] Provider Start: 01-20-2023 HIV 1 2 COMBO(AG/AB) ,WITH REFLEX TO DIFFERENTIATION [facility] Provider Start: 01-20-2023 RUBELLA IGG AB [facility] Prov ider Start: 01-20-2023 SYPHILIS TOTAL W/REFLEX [facility] Provider Start: 01-20-2023 TYPE + SCREEN (EXTERNAL LAB) [facility] Provider Start: 06-26-2022 INFLUENZA VACCINE QUADRIVALENT 6 MO - 64 YRS IM Kailee Medellin APRN.FAMILY EDUCATOR Work Phone: Start: 08-15-2021 Adult depression scr eening assessment Sleep Main Work Phone: Plan of Treatment Date Care Activity Detail Author Start: 06-10-2033 Urine microalbumin profile DTa P,Tdap,Td Vaccine (3 - Td or Tdap) [facility] Start: 06-12-2028 Urine microalbumin profile [facility] Start: 07-07-2023 RSV Vaccine (1 - Ris k 1-dose series) RSV Vaccine (1 - Risk 1-dose series) [facility] Start: 06-26-2023 COVID-19 VACCINE (3 - Booster for Pfizer series) COVID-19 VACCINE (3 - Booster for Pfizer series) [facility] Immunizations Immunization Date Immunization Notes Care Provider Fa cristi 06-10-2023 tetanus toxoid, redu kirby diphtheria toxoid, and acellular pertussis vaccine, adsorbed Damari Purdy DRAWING IN HAND.CNM Work Phone: [facility] 03-17-2023 influenza, injectabl e, quadrivalent, contains preservative Marly Parr MD Work Phone: [facility] 06-26-2022 influenza, injectabl e, quadrivalent, contains preservative Kailee Medellin DRAWING IN HAND.FAMILY EDUCATOR Work Phone: [facility] 06-12-2018 tetanus toxoid, redu kirby diphtheria toxoid, and acellular pertussis vaccine, adsorbed [facility] Work Phone: [facility] 12-09-2017 pneumococcal polysaccharide vaccine, 23 valent Sleep Main Work Phone: [facility] Payers Date Payer Category Payer Unknown [employer] PPO [id number] 2022-Present [phone] [address] [place] [address] PPO [id number] 2022 Unknown [id number] 2020 Unknown [employer] C[employer] PPO OOS [id number] 2020-Present [phone] [address] [place] [address] PPO [id number] 2018 Unknown [id number] 1992 Unknown [id number] 1992 Unknown [id number] Private Health Insurance [id number] Unknown [id number] Social History Date Type Detail Facility Start: 03-02-2019 Tobacco smoking stat us NHIS Ex-smoker [facility] End: 02-28-2019 History of tobacco use Current smoker [facility] End: 02-28-2019 History of tobacco use Cigarette Smoker [facility] Start: 03-02-2019 End: 03-05-2023 Cigarettes smoked current (pack per day) - Reported 0.5 [facility] Start: 03-02-2019 End: 03-05-2023 Tobacco use and exposure Smokeless tobacco non-user [facility] Start: 03-21-2021 End: 06-26-2022 Alcohol intake Current non-drinker of alcohol (finding) [facility] Start: 08-15-2021 End: 06-19-2022 History SDOH Alcohol Frequency 1 [facility] Start: 08-15-2021 History SDOH Alcohol Std Drinks 98 [facility] Start: 08-15-2021 End: 06-19-2022 History SDOH Social Connections Phone 5 [facility] Start: 08-15-2021 End: 06-19-2022 History SDOH Social Connections Get Together 2 [facility] Start: 08-15-2021 End: 06-19-2022 History SDOH Social Connections Living 3 [facility] Start: 1990 Sex Assigned At Female [facility] Start: 07-16-2021 End: 10-18-2021 Exposure to SARS-CoV-2 (event) Not sure [facility] Start: 06-26-2022 End: 03-05-2023 Tobacco smoking status VTIS Smokes tobacco daily [facility] Start: 06-19-2022 History SDOH Alcohol Std Drinks 0 [facility] Start: 03-17-2023 End: 07-31-2023 Alcohol intake Ex-drinker (finding) [facility] Start: 06-19-2022 End: 03-05-2023 Social connection and isolation panel [facility] Do you belong to any clubs or organizations such as congregational groups, unions, fraternal or athletic groups, or school groups? No [facility] Are you now , , , , never or living with a partner? [facility] How often to you hav e a drink containing alcohol? Never [facility] How many standard dr inks containing alcohol do you have on a typical day? Patient does not drink [facility] Do you feel stress - tense, restless, nervous, or anxious, or unable to sleep at night because your mind is troubled all the time - these days [OSQ] Only a little [facility] (I/We) worried jada er (my/our) food would run out before (I/we) got money to buy more. Never true [facility] Start: 03-05-2023 Education 13 [facility] Start: 03-05-2023 Alcohol Comment 1-2 times a year [facility] Start: 12-09-2022 [facility] Start: 02-03-2020 Gender identity Identifies as female gender (finding) [facility] Start: 02-03-2020 Sexual orientation Heterosexual (aster jauregui) [facility] Medical Equipment Procedure Code Equipment Code Equipment Origin al Text Equipment Identifier Dates Start: 04-07-2023 End: 05-26-2023 Goals Date Patient Goal Desired Activity /State Personal health goal Clinical Notes 09-14-2021 to 08-10-2023 Telephone Encounter - Devang Barone DO - 08/10/2023 1:12 PM Aspen Steinberg APRN.[facility] - 08/08/2023 2:37 PM ESTPrenatal Quick Notes - Aspen Mcguire APRN.[facility] - 08/08/2023 2:36 PM EST Note Date & Type Note Facility 08-10-2023 Miscellaneous Notes Reviewed BG data- responded as follows: Good afternoon- sorry I missed that email somehow! I reviewed your BG data- overall these numbers look good- I would recommend that you bump up the dinner Humalog as below: NPH 80 units at bedtime and increase Humalog to 80 units prior to dinner. Will review again next week- thanks! KB documented in this encounter [facility] 08-08-2023 Note HNO ID: [id number] Author: ASPEN MCGUIRE APRN.CNM Service: ? Author Type: Local Driver Type: Progress Notes Filed: 08/08/2023 14:38 Note Text: NST SUMMARY PROVIDER ASSESSMENT AND INTERPRETATION Betzy Delgado is a 32 year old female, , who is at 36w4d with an ABIOLA of 09/01/2023, by Last Menstrual Period dating method. Indications for NST: Gestational Diabetes - Insulin Controlled Baseline: 135 Variability: Moderate Accelerations: Present 15 X 15 Decelerations: None Contractions: TOCO: None Interpretation: Reactive SIGNATURE: Aspen Mcguire APRN.CNM [facility] 08-08-2023 History of Presen t illness Narrative NST SUMMARY PROVIDER ASSESSMENT AND INTERPRETATION Betzy Delgado is a 32 year old female, , who is at 36w4d with an ABIOLA of 09/01/2023, by Last Menstrual Period dating method. Indications for NST: Gestational Diabetes - Insulin Controlled Baseline: 135 Variability: Moderate Accelerations: Present 15 X 15 Decelerations: None Contractions: TOCO: None Interpretation: Reactive SIGNATURE: Aspen Mcguire APRN.CNM documented in this encounter [facility] 08-08-2023 Miscellaneous Notes NST today. Reviewed with patient physician only, will reschedule visits. Aspen Mcguire APRN.CNM documented in this encounter [facility] 08-08-2023 Yonis Colon Cma - 08/08/2023 2:23 PM EST SEQUENTIAL SCREENINGS The [facility] offers sequential screenings for women who are interested in screenings for chromosomal abnormalities and certain defects during a . The sequential screen combines ultrasound and blood tests to determine the risk of chromosomal abnormalities, including Down's Syndrome (Trisomy 21) and Trisomy 18, as well as open neural tube defects including spina bifida. Ultrasound examination is performed between 11 weeks and 13 weeks gestational age. Blood tests are drawn after the ultrasound and again later in the between 15 and 21 weeks gestational age. Please let your physician know if you are interested in this testing. It will require an appointment with our commercial hvac service technician. This is not an ultrasound performed by a physician in our office during a routine visit. SIGNS AND SYMPTOMS OF LABOR 1. Contractions every 10 minutes or more often 2. Clear, pink, or brownish fluid (water) leaking from vagina 3. Feeling that baby is pushing down, pressure 4. Low, dull backache 5. Cramps that feel like a period 6. Cramps with or without diarrhea If you notice any of the above symptoms, contact our office at [phone] and ask to speak with a nurse. After hours, you can call doctors registry at [phone] OR call [facility] at [phone] and ask to have the doctor director of publications paged. If you consider this an emergency, dial [phone] or go to your nearest emergency department. NEED HELP? Are you dealing with a violent or abusive relationship? Are you a victim of rape or sexual assult? Call [facility] ([place]) 24 hour Crisis Hotline: 308.957.4623 or 324-357-4587. MANUAL Your Guide to a Healthy manual is now on-line. Visit [email or web address] to download your free copy documented in this encounter [facility] 08-05-2023 Miscellaneous Notes YONNY-S: Betzy Delgado is a 32 year old female who presents at 09/01/2023, by Last Menstrual Period for a routine visit. Denies headache, visual changes, chest pain, shortness of breath, vaginal bleeding, leakage of fluid, or dysuria. Feeling well, no complaints. O: See flow sheet Gen: No apparent distress Abd: Gravid, nontender S>D, ASSESSMENT/PLAN: 1. 36 weeks gestation of 2. GDMA2 3. Obesity P: 1) PTL precautions reviewed and when to call 2) RTO in one week 3) Continue Lovenox for MTHFR 4) continue 70 units Lispro with dinner and 80 units NPH at HS. Management with 5) continue twice weekly testing, BPP and NST. 6) GBS today 7) GC/CT not completed, testing next visit. Aspen Mcguire APRN.CNM documented in this encounter [facility] 08-05-2023 Instructions Carmen Son Ma 08/05/2023 3:17 PM EST SEQUENTIAL SCREENINGS The [facility] offers sequential screenings for women who are interested in screenings for chromosomal abnormalities and certain defects during a . The sequential screen combines ultrasound and blood tests to determine the risk of chromosomal abnormalities, including Down's Syndrome (Trisomy 21) and Trisomy 18, as well as open neural tube defects including spina bifida. Ultrasound examination is performed between 11 weeks and 13 weeks gestational age. Blood tests are drawn after the ultrasound and again later in the between 15 and 21 weeks gestational age. Please let your physician know if you are interested in this testing. It will require an appointment with our commercial hvac service technician. This is not an ultrasound performed by a physician in our office during a routine visit. SIGNS AND SYMPTOMS OF LABOR 1. Contractions every 10 minutes or more often 2. Clear, pink, or brownish fluid (water) leaking from vagina 3. Feeling that baby is pushing down, pressure 4. Low, dull backache 5. Cramps that feel like a period 6. Cramps with or without diarrhea If you notice any of the above symptoms, contact our office at [phone] and ask to speak with a nurse. After hours, you can call doctors registry at [phone] OR call [facility] at [phone] and ask to have the doctor director of publications paged. If you consider this an emergency, dial 9-9 or go to your nearest emergency department. NEED HELP? Are you dealing with a violent or abusive relationship? Are you a victim of rape or sexual assult? Call [facility] ([facility] 24 hour Crisis Hotline: 741.378.8318 or 782-857-8305. MANUAL Your Guide to a Healthy manual is now on-line. Visit [email or web address] to download your free copy documented in this encounter [facility] 08-04-2023 Miscellaneous Notes Requester: Patient Patients last Endocrinology visit occurred 07/26/23. Follow-up evaluation has been established Upcoming Endocrinology Appointments - Next 365 Days Visit Type Date Time Department VIDEO SPEC EST 10/30/2023 1:40 PM ENDO [facility] . Requested Prescriptions Pending Prescriptions Disp Refills insulin lispro (HUMALOG KWIKPEN) 100 unit/mL 30 mL 11 Sig: Inject 70 Units subcutaneously daily with dinner. If patient is due for an appointment please route to provider for refill consideration and also to the endo scheduling pool. PSS NOTE: Patient needs scheduled appointment No Pt needs humulin changed to 70 units and sent to [facility] in [place]. Please call pt when sent. Patient has been identified by name and birthdate. Duration of symptoms: N/A Person calling: self Call patient at: on cell [phone] (home) [phone] (cell) Was an appointment scheduled: No Closing statement: Results or non-symptom based questions: Thank you for calling [facility], your call will be returned within the next business day. Elizabeth Hair Pss documented in this encounter [facility] 07-31-2023 Note HNO ID: [id number] Author: MARLY PARR MD Service: ? Author Type: Physician Type: Progress Notes Filed: 07/31/2023 18:27 Note Text: NST SUMMARY PROVIDER ASSESSMENT AND INTERPRETATION Betzy Delgado is a 32 year old female, , who is at 35w3d with an BAIOLA of 09/01/2023, by Last Menstrual Period dating method. Indications for NST: Diabetes - Insulin Controlled Baseline: 120 Variability: Moderate Accelerations: Present 15 X 15 Decelerations: None Contractions: TOCO: None Interpretation: Reactive SIGNATURE: Marly Parr DO [facility] 07-31-2023 History of Presen t illness Narrative NST SUMMARY PROVIDER ASSESSMENT AND INTERPRETATION Betzy Delgado is a 32 year old female, , who is at 35w3d with an ABIOLA of 09/01/2023, by Last Menstrual Period dating method. Indications for NST: Diabetes - Insulin Controlled Baseline: 120 Variability: Moderate Accelerations: Present 15 X 15 Decelerations: None Contractions: TOCO: None Interpretation: Reactive SIGNATURE: Marly Parr DO documented in this encounter [facility] 07-31-2023 Miscellaneous Notes SW- NST only. Pt doing well and offers no complaints documented in this encounter [facility] 07-31-2023 Instructions Elizabeth Pina MA - 07/31/2023 2:51 PM EST SEQUENTIAL SCREENINGS The [facility] offers sequential screenings for women who are interested in screenings for chromosomal abnormalities and certain defects during a . The sequential screen combines ultrasound and blood tests to determine the risk of chromosomal abnormalities, including Down's Syndrome (Trisomy 21) and Trisomy 18, as well as open neural tube defects including spina bifida. Ultrasound examination is performed between 11 weeks and 13 weeks gestational age. Blood tests are drawn after the ultrasound and again later in the between 15 and 21 weeks gestational age. Please let your physician know if you are interested in this testing. It will require an appointment with our commercial hvac service technician. This is not an ultrasound performed by a physician in our office during a routine visit. SIGNS AND SYMPTOMS OF LABOR 1. Contractions every 10 minutes or more often 2. Clear, pink, or brownish fluid (water) leaking from vagina 3. Feeling that baby is pushing down, pressure 4. Low, dull backache 5. Cramps that feel like a period 6. Cramps with or without diarrhea If you notice any of the above symptoms, contact our office at [phone] and ask to speak with a nurse. After hours, you can call doctors registry at [phone] OR call [facility] at [phone] and ask to have the doctor director of publications paged. If you consider this an emergency, dial [phone]- or go to your nearest emergency department. NEED HELP? Are you dealing with a violent or abusive relationship? Are you a victim of rape or sexual assult? Call [facility] ([place]) 24 hour Crisis Hotline: 272.453.1105 or 640-454-1240. MANUAL Your Guide to a Healthy manual is now on-line. Visit [email or web address] to download your free copy documented in this encounter [facility] 07-28-2023 Note HNO ID: [id number] Author: ?, ?, ? Service: ? Author Type: ? Type: Progress Notes Filed: 07/28/2023 16:10 Note Text: Spoke with patient, scheduled 10/30/2023 @ 1:40 pm (virtual appointment) [facility] 07-28-2023 Note HNO ID: [id number] Author: ?, ?, ? Service: ? Author Type: ? Type: Progress Notes Filed: 07/28/2023 11:27 Note Text: Left voicemail for patient to call [phone] and ask to be transferred to the [facility] to schedule 3 month post visit. [facility] 07-26-2023 Note HNO ID: [id number] Author: DEVANG BARONE, DO Service: ? Author Type: Physician Type: Progress Notes Filed: 07/26/2023 09:39 Note Text: Reason for consultation: f/u - gestational diabetes mellitus Referring Physician: Meliza Lira MD My final recommendations will be communicated back to the requesting physician by way of shared Medical record or letter via [place] mail. This Team Access Model visit is a virtual encounter. It required patient-provider interaction for the medical decision making as documented below. I have communicated my name and active licensure. The patient's identity and physical location were verified at the time of this visit. Either the patient or their legal branch customer service representative has been informed of the risks and benefits of -- and alternatives to -- treatment through a remote evaluation and consents to proceed with the evaluation remotely. HISTORY OF PRESENT ILLNESS; Ms. Delgado is a 32 year old presenting at 34+ weeks gestation here for f/u regarding gestational diabetes mellitus. Her initial visit with me was 04/2023. She was diagnosed with GDM after abnormal 3 hour GTT on 04/04/23. POC HbA1c at her first visit here was 5.9%- consistent with preexisting beta cell dysfunction. She does not have a previous history of gestational diabetes. She has a family history of diabetes mellitus including her Mother (borderline) and grandmother. Her prepregnancy weight was 248 lbs and her current weight is 268 lbs. She has seen DM education and is attempting to follow these instructions. Insulin was initiated at her first visit here and has been adjusted weekly in between visits- most recently on 07/19- her current regimen is NPH 80 units at bedtime and Humalog 70 units prior to dinner. She is eating three meals/day- trying to be mindful of carbohydrate intake. She has been checking her blood glucose 4 times daily. Fasting 76-92 2 hour post meal in general less than 120 mg/dL- some occasional outliers depending upon composition of the meal. Hypoglycemia frequency: n/a Hypoglycemia awareness: n/a Hyperglycemia Symptoms: denies blurry vision denies polyuria denies polydipsia denies nocturia denies rapid weight loss Last visit with OB was 07/24- NST reactive. Last u/s growth was 07/08- EFW 71st centile, AC 65th, NATAN showing mild polyhydramnios- having a girl! Planning induction at 39 weeks. 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 Salamanca MTHFR gene mutation Homozygous for C677 polymorphism Obesity (BMI 35.0-39.9 without comorbidity) PCOS (polycystic ovarian syndrome) Tobacco use PAST SURGICAL HISTORY Procedure Laterality Date COLONOSCOPY SCREENING age 19 DANDC, DIAG AND/OR THERAPEUTIC L'SCOPE DX W/WO BRUSHINGS/WASHINGS 07/29/2019 Endometriosis-Dr Brionna Maynard PAST SURGICAL HISTORY OF wisdom teeth TONSILLECTOMY AND ADENOIDECTOMY HX 2000 FAMILY HISTORY Problem Relation Age of Onset Heart Attack Mother Coronary Artery Disease Mother 42 MIx2 Stroke Mother Clotting Disorder Mother Blood Clots Mother No Known Problems Father Asthma Sister No Known Problems Sister No Known Problems Brother No Known Problems Brother No Known Problems Brother No Known Problems Brother Coronary Artery Disease Maternal Grandmother DE DVT Maternal Grandmother Diabetes Maternal Grandmother Coronary Artery Disease Maternal Grandfather 42 DE Heart Attack Maternal Grandfather Colon Cancer Paternal Grandmother age 60s Cancer Paternal Grandfather gastric Cancer Maternal Aunt uterine Cancer Maternal Uncle lung, lymph Social History Tobacco Use Smoking status: Every Day Packs/day: 0.25 Years: 15.00 Additional pack years: 0.00 Total pack years: 3.75 Types: Cigarettes Last attempt to quit: 02/28/2019 Years since quittin.4 Smokeless tobacco: Never Vaping Use Vaping Use: Never used Substance Use Topics Alcohol use: Not Currently Comment: 1-2 times a year Drug use: No Current Outpatient Medications Medication Sig Dispense Refill insulin lispro (HUMALOG KWIKPEN) 100 unit/mL Inject 70 Units subcutaneously daily with dinner. 60 units with dinner diphenhydrAMINE (BENADRYL ALLERGY) 25 mg tablet Take 1 tablet by mouth every 6 hours as needed for itching/rash. 48 tablet 0 insulin NPH subcutaneous pen Inject 80 Units subcutaneously d (more content not included)... [facility] 07-24-2023 Note HNO ID: [id number] Author: NEO MELENDEZ MD Service: ? Author Type: Physician Type: Progress Notes Filed: 07/24/2023 15:18 Note Text: NST SUMMARY PROVIDER ASSESSMENT AND INTERPRETATION Betzy Delgado is a 32 year old female, , who is at 34w3d with an ABIOLA of 09/01/2023, by Last Menstrual Period dating method. Indications for NST: Gestational Diabetes - Insulin Controlled and Obesity Baseline: 120 Variability: Moderate Accelerations: Present 15 X 15 Decelerations: None Contractions: TOCO: None Interpretation: Reactive SIGNATURE: Neo Melendez MD [facility] 07-24-2023 History of Presen t illness Narrative NST SUMMARY PROVIDER ASSESSMENT AND INTERPRETATION Betzy Delgado is a 32 year old female, , who is at 34w3d with an ABIOLA of 09/01/2023, by Last Menstrual Period dating method. Indications for NST: Gestational Diabetes - Insulin Controlled and Obesity Baseline: 120 Variability: Moderate Accelerations: Present 15 X 15 Decelerations: None Contractions: TOCO: None Interpretation: Reactive SIGNATURE: Neo Melendez MD documented in this encounter [facility] 07-21-2023 Note HNO ID: [id number] Author: KVNG GAO MD Service: ? Author Type: Physician Type: Progress Notes Filed: 07/21/2023 15:50 Note Text: [facility] 07-17-2023 Note HNO ID: [id number] Author: NEO MELENDEZ MD Service: ? Author Type: Physician Type: Progress Notes Filed: 07/17/2023 17:13 Note Text: NST SUMMARY PROVIDER ASSESSMENT AND INTERPRETATION Betzy Delgado is a 32 year old female, , who is at 33w3d with an ABIOLA of 09/01/2023, by Last Menstrual Period dating method. Indications for NST: Gestational Diabetes - Insulin Controlled, Obesity, and Other: h/o IUFD Baseline: 120 Variability: Moderate Accelerations: Present 15 X 15 Decelerations: None Contractions: TOCO: None Interpretation: Reactive SIGNATURE: Neo Melendez MD [facility] 07-11-2023 Note HNO ID: [id number] Author: NEO MELENDEZ MD Service: ? Author Type: Physician Type: Progress Notes Filed: 07/11/2023 11:50 Note Text: NST SUMMARY PROVIDER ASSESSMENT AND INTERPRETATION Betzy Delgado is a 32 year old female, , who is at 32w4d with an ABIOLA of 09/01/2023, by Last Menstrual Period dating method. Indications for NST: Obesity Baseline: 125 Variability: Moderate Accelerations: Present 15 X 15 Decelerations: Variable Contractions: TOCO: None Interpretation: Reactive SIGNATURE: Neo Melendez MD [facility] 07-07-2023 Note HNO ID: [id number] Author: ?, ?, ? Service: ? Author Type: ? Type: Progress Notes Filed: 07/07/2023 16:28 Note Text: Spoke with patient, scheduled 07/26/2023 @ 9:40 am (virtual appointment) [facility] 07-07-2023 Note HNO ID: [id number] Author: DEVANG BARONE, DO Service: ? Author Type: Physician Type: Progress Notes Filed: 07/07/2023 15:52 Note Text: Reason for consultation: f/u - gestational diabetes mellitus Referring Physician: Meliza Lira MD My final recommendations will be communicated back to the requesting physician by way of shared Medical record or letter via [place] mail. This Team Access Model visit is a virtual encounter. It required patient-provider interaction for the medical decision making as documented below. I have communicated my name and active licensure. The patient's identity and physical location were verified at the time of this visit. Either the patient or their legal branch customer service representative has been informed of the risks and benefits of -- and alternatives to -- treatment through a remote evaluation and consents to proceed with the evaluation remotely. HISTORY OF PRESENT ILLNESS; Ms. Delgado is a 32 year old presenting at 32+ weeks gestation here for f/u regarding gestational diabetes mellitus. Her initial visit with wv was 04/2023. She was diagnosed with GDM after abnormal 3 hour GTT on 04/04/23. POC HbA1c at her first visit here was 5.9%- consistent with preexisting beta cell dysfunction. She does not have a previous history of gestational diabetes. She has a family history of diabetes mellitus including her Mother (borderline) and grandmother. Her prepregnancy weight was 248 lbs and her current weight is 264 lbs She has seen DM education and is attempting to follow these instructions. Insulin was initiated at her first visit here and has been adjusted weekly in between visits- most recently on 07/05- her current regimen is NPH 80 units at bedtime and Humalog 60 units prior to dinner. She is eating three meals/day- trying to be mindful of carbohydrate intake. She has been checking her blood glucose 4 times daily. Fasting last two days 80-93 mg/dL. Post dinner remain elevated- sat 106 mg/dL but last night 160 mg/dL. BG typically normalized for a day or two after insulin adjustments then increase again. Hypoglycemia frequency: n/a Hypoglycemia awareness: n/a Hyperglycemia Symptoms: denies blurry vision denies polyuria denies polydipsia denies nocturia denies rapid weight loss Last visit with OB was 06/26. Last u/s growth was 06/10- EFW 55th centile, AC 54th, NATAN NL- having a girl! Going for growth scan on 06/10. 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 Salamanca MTHFR gene mutation Homozygous for C677 polymorphism Obesity (BMI 35.0-39.9 without comorbidity) PCOS (polycystic ovarian syndrome) Tobacco use PAST SURGICAL HISTORY Procedure Laterality Date COLONOSCOPY SCREENING age 19 DANDC, DIAG AND/OR THERAPEUTIC L'SCOPE DX W/WO BRUSHINGS/WASHINGS 07/29/2019 Endometriosis-Dr Brionna Maynard PAST SURGICAL HISTORY OF wisdom teeth TONSILLECTOMY AND ADENOIDECTOMY HX 2000 FAMILY HISTORY Problem Relation Age of Onset Heart Attack Mother Coronary Artery Disease Mother 42 MIx2 Stroke Mother Clotting Disorder Mother Blood Clots Mother No Known Problems Father Asthma Sister No Known Problems Sister No Known Problems Brother No Known Problems Brother No Known Problems Brother No Known Problems Brother Coronary Artery Disease Maternal Grandmother DE DVT Maternal Grandmother Diabetes Maternal Grandmother Coronary Artery Disease Maternal Grandfather 42 DE Heart Attack Maternal Grandfather Colon Cancer Paternal Grandmother age 60s Cancer Paternal Grandfather gastric Cancer Maternal Aunt uterine Cancer Maternal Uncle lung, lymph Social History Tobacco Use Smoking status: Every Day Packs/day: 0.25 Years: 15.00 Additional pack years: 0.00 Total pack years: 3.75 Types: Cigarettes Last attempt to quit: 02/28/2019 Years since quittin.3 Smokeless tobacco: Never Vaping Use Vaping Use: Never used Substance Use Topics Alcohol use: Not Currently Comment: 1-2 times a year Drug use: No Current Outpatient Medications Medication Sig Dispense Refill insulin lispro (HUMALOG KWIKPEN) 100 unit/mL 60 units with dinner 30 mL 11 insulin NPH subcutaneous pen Inject 80 Units subcutaneously daily at bedtime. 24 mL 2 Insulin Dewey, Disposable, (BD ULTRAFINE III MINI PEN) 31 gauge x 3/16 Twice daily with insulin 200 Each 3 in (more content not included)... [facility] 06-25-2023 Note HNO ID: [id number] Author: Sol Garcia RN Service: ? Author Type: Registered Nurse Type: Progress Notes Filed: 06/25/2023 9:47 AM Note Text: Office note from Ophthalmology. Scan on 06/25/2023 7:49 AM by Provider, BILL Dotson: Consultation - Ophthalmology [facility] 06-10-2023 Note HNO ID: [id number] Author: Florencia Martinez MD Service: ? Author Type: Physician Type: Progress Notes Filed: 06/10/2023 11:26 AM Note Text: MFM Progress Note Betzy is 32yo @ 28w1d here for growth and BPP Feeling fine overall, feeling movements. Working with Dr. Barone on insulin, has been on same regimen for 3 weeks with good control: NPH 80u nightly, Humalog 50u before dinner BP 116/80 Wt 262 lb 6.4 oz (119 kg) LMP 11/25/2022 (Exact Date) BMI 41.10 kg/m? AANDO, NAD Abd soft, nontender during US exam Problem List Items Addressed This Visit None Visit Diagnoses H/O intrauterine , currently : Testing per prior IUFD plan BPP weekly NST to alternate if able 28-32 weeks Twice weekly testing 32 weeks Monthly Growth ultrasounds Close monitoring of movement Delivery individualized 37-39 weeks unless indicated earlier Insulin controlled gestational diabetes mellitus (GDM) in second trimester Doing well on current insulin regimen, growth reassuring today Continue working with Dr Barone and testing/growth per above Medical Decision Making: Problems: Moderate: 2+ stable chronic illnesses Risk: Moderate: Moderate risk from testing/treatment Medical Decision Making Level: 4 - Moderate Florencia Martinez MD June 10, 2023 11:25 AM [facility] 06-10-2023 Note HNO ID: [id number] Author: Elizabeth Pina MA Service: ? Author Type: Gold Cutter Type: Progress Notes Filed: 06/10/2023 1:16 PM Note Text: Patient identified by name and date of . Betzy Delgado presents today for a vaccination of Tdap. Patient denies an allergy to latex: yes Patient denies a severe (life-threatening) allergy to a previous dose of Tdap, DTP, DTaP, DT or Td vaccine. Yes Patient denies history of epilepsy or neurological problems: Yes Patient is afebrile and denies being moderately or severely ill: Yes Patient denies history of Guillain-[place] Syndrome (a severe paralytic illness): Yes Tdap Adacel injection was given without incident. See immunizations for details of immunizations administered today. VIS sheet provided: Yes Provider Neo Melendez MD was present in office at time of injection. Elizabeth Pina MA [facility] 06-09-2023 Note Education (NUTRRENETTA) BETZY DELGADO ([id number]) 1990 F Date Time Provider Department 06/09/23 1:00 PM EMMA NGUYEN Reason for Visit: Patient Education [91] Reassessment [674] Primary Visit Diagnosis:Gestational diabetes mellitus (GDM) in second trimester, gestational diabetes method of control unspecified [O24.419] Other Visit Diagnosis:Dietary counseling [Z71.3] During your visit today, we recorded the following information about you: Weight Height 118.2 kg 1.702 m Allergies As of Date: 06/09/2023 (No Known Allergies) Date Reviewed: 06/09/2023 Reviewed by: Emma Nguyen RD - Fully Assessed Prescriptions as of 06/09/2023 - insulin NPH subcutaneous pen Inject 80 Units subcutaneously daily at bedtime. - Insulin Dewey, Disposable, (BD ULTRAFINE III MINI PEN) 31 gauge x 3/16 Twice daily with insulin - insulin NPH (HUMULIN N NPH INSULIN KWIKPEN) 100 unit/mL (3 mL) injection pen 80 units at bedtime - insulin lispro (HUMALOG KWIKPEN) 100 unit/mL 50 units with dinner - blood sugar diagnostic test strip Use as directed to check glucose levels up to seven times daily. - Lancets lancets Use as directed to check glucose levels up to seven times daily. - alcohol swabs (ALCOHOL PREP PADS) Use as directed to check glucose levels up to seven times daily. - folic acid 400 mcg tablet Take 1 tablet by mouth once daily. - enoxaparin (LOVENOX) 40 mg/0.4 mL Inject 0.4 mL subcutaneously once daily. - VITAMIN D-3 50 mcg (2,000 unit) tablet Take 1 tablet by mouth once daily. - 25/iron fum/folic/dha (-1 ORAL) Take 1 tablet by mouth. - aspirin 81 mg chewable tablet Take 81 mg by mouth. Encounter Status:Closed by EMMA NGUYEN on 06/09/23 [facility] 06-09-2023 Note HNO ID: [id number] Author: Emma Nguyen RD Service: ? Author Type: Registered Dietitian Type: Progress Notes Filed: 06/09/2023 1:21 PM Note Text: Nutritional Therapy Re-Assessment Nutrition Diagnosis: Altered nutrition-related lab values, related to, and endocrine dysfunction, as evidenced by elevated blood sugars in requiring insulin RECOMMENDED MALNUTRITION DIAGNOSIS: NO MALNUTRITION IDENTIFIED NUTRITION CARE PLAN: Nutrition Intervention 06/09/2023: modify type and amount of food or beverage Continue current plan Aim for 20-35 grams of fiber. Change to whole grain bread, whole grain crackers, try chick pea past/edammame pasta etc; Daily exercise of 30-60 minutes (work counts, consider adding a walk on weekends.) A short walk after meals can help control post meal blood sugars Watch snacks, have something small Nutrition Monitoring AND Evaluation: blood sugars in normal range Need for Follow up: 3-4 weeks or as needed PROGRESS: Interval History: Following as relates to gestational diabetes now at 28 weeks. Continues insulin at dinner and NPH in evening. Following most recommendations well, most blood sugars in target range. Is active at work and busy at home . Weight half pound loss since last visit. Nutrition Intervention 05/26/23 Goals: Fasting glucose <95 mg/dL; 1 hr glucose ,140 mg/dL, 2 hr glucose ,120 mg/dL; mean glucose of 86 mg/dL. 1. Distribute carbohydrate evening throught out the day, Choose whole grain starches and grains, avoid white and refined grains and sources of concentration sugars . Carbohydrates are the starches, fruits and milk group and is defined as 15 grams per serving/choice. 2. Keep breakfast at 15-30 grams carbohydrate; meals 30-45 grams and snacks 15-grams of carbohydrate, include healthy protein in meals and snacks; wheat bread (and a 6 ) when having subway; 3. Distribute meals and snacks every 2-3 hours. 4. Aim for 20-35 grams of fiber. Change to whole grain bread, whole grain crackers, try chick pea past/edammame pasta etc; 5. Limit saturated fat, choose lean proteins, healthy fast such as olive oil, canola oil, avocados, nuts/seeds, etc. Choose lean proteins only: chicken, turkey, fish With fruit choose an extra small banana or take half one fruit per eating eveng All beverages calorie free and sugar free, look for sugar free strawberry slyrup; look Fairlife milk 6. Daily exercise of 30-60 minutes (work counts, consider adding a walk on weekends.) A short walk after meals can help control post meal blood sugars Actions to implement interventions: Wheat thins Fairlife antonio milk with pills Diet History: Low 80's Breakfast - light Hebrew yogurt, cheese n crackers; ptn bar, kannan D 110 Snack - occ nuts and protein bar; Lunch - turkey cheese and veg on high protein low carb wrap, veg, cheese n crackers, occ cheese puffs 110 Snack - keto cookie bar Dinner - 5-6 [place] chicken nuggets; 2 burritos; chicken High 90's to low 110's (couple higher to 140/160 - cheesey potatoes/BBQ meatballs and 5 [place]) Snack - Fairlife antonio milk Beverages - water, zero sugar dr Carpenter, diet iced tea, diet cran grape Alcohol - no Vitamins/Supplements - no change Activity: Activities of Daily Living: varies Additional Activity: active at work, cleaning house Anthropometrics: Height: Last 1 Encounter Ht Readings: Date: Ht: 06/09/2023 170.2 cm (5' 7 ) Current weight: Last 1 Encounter Wt Readings: Date: Wt: 06/09/2023 118.2 kg (260 lb 8 oz) Body mass index is 40.8 kg/m?. Resting Metabolic Rate: 1934 Malnutrition Screening Significant unintentional weight loss? No Eating less than 75% of usual intake for more than 2 weeks? No Potential Signs of Inflammation: no identifiable sources Nutritional status: Education Materials Provided: None this visit READINESS TO LEARN Cognitive ability: Alert and oriented Motivation to learn: Interested Family support: Unable to assess - Family not present Instruction provided to: Patient Patient learns best by: Individual Instruction Factors affecting learning: None Physical limitations affecting learning: None Likelihood of Adherence: Moderate Referred/Supervised by: Dg PRICE Billing Type: Re-assess/15 min 1 unit SIGNATURE: Emma Nguyen RD PATIENT NAME: Betzy Delgado DATE: June 09, 2023 TIME: 12:58 PM [facility] 06-09-2023 Miscellaneous Notes Spoke to patient to clarify request. Patient stated [facility] not have in stock and asked we send prescription to [facility]. Spoke to Deborah, pharmacist, and gave verbal order. The following prescriptions have been called to [facility] pharmacy 06/09/2023 at 1:55 PM by Lyndsey Cobb MA. I spoke with Deborah in the pharmacy. Requested Prescriptions Pending Prescriptions Disp Refills insulin NPH subcutaneous pen 24 mL 2 Sig: Inject 80 Units subcutaneously daily at bedtime. Pt calling [facility] only has the 55 units / of NPH order below Asking to send a new prescription to [facility] on file instead of [facility] Patient's request for medication is as follows: Requested Prescriptions Pending Prescriptions Disp Refills insulin NPH subcutaneous pen 24 mL 2 Sig: Inject 80 Units subcutaneously daily at bedtime. Prescription(s) as above. Please process accordingly. Adelaide Garcia RN documented in this encounter [facility] 06-08-2023 Miscellaneous Notes Reviewed BG data-responded as follows: Nicholas Bo- I reviewed your BG data- the majority of these values are at goal- I recommend that you continue your current regimen: NPH 80 units at bedtime and Humalog 50 units prior to dinner. will review again next week- thanks! KB documented in this encounter [facility] 06-07-2023 Note HNO ID: [id number] Author: Damari Purdy APRN.CNM Service: ? Author Type: Local Driver Type: Progress Notes Filed: 06/07/2023 10:50 AM Note Text: Patient called after hours line to discuss recent insulin order. Stated she is ordered 80 units NPH HS. Rx was sent to pharmacy that did not have kwik pens. She was requesting RX to be sent to another pharmacy due to not having enough NPH currently at home which I did at this time. Damari Purdy APRN.CNM [facility] 06-07-2023 History of Presen t illness Narrative Patient called after hours line to discuss recent insulin order. Stated she is ordered 80 units NPH HS. Rx was sent to pharmacy that did not have kwik pens. She was requesting RX to be sent to another pharmacy due to not having enough NPH currently at home which I did at this time. Damari Purdy APRN.CNM documented in this encounter [facility] 05-26-2023 Note Education (NUTRWS) DELGADOBETZY Kiara ([id number]) 1990 F Date Time Provider Department 05/26/23 3:15 PM EMMA NGUYEN Reason for Visit: Patient Education [91] Assessment [673] Primary Visit Diagnosis:Dietary counseling [Z71.3] Other Visit Diagnosis:Gestational diabetes mellitus (GDM) in second trimester, gestational diabetes method of control unspecified [O24.419] Order(s):CONSULT TO NUTRITION THERAPY [9020] Order #: [id number]: 4 During your visit today, we recorded the following information about you: Weight Height 118.6 kg 1.702 m Allergies As of Date: 05/26/2023 (No Known Allergies) Date Reviewed: 05/26/2023 Reviewed by: Emma Nguyen, RD - Fully Assessed Prescriptions as of 05/27/2023 - Insulin Dewey, Disposable, (BD ULTRAFINE III MINI PEN) 31 gauge x 3/16 Twice daily with insulin - insulin NPH (HUMULIN N NPH INSULIN KWIKPEN) 100 unit/mL (3 mL) injection pen 80 units at bedtime - insulin lispro (HUMALOG KWIKPEN) 100 unit/mL 50 units with dinner - blood sugar diagnostic test strip Use as directed to check glucose levels up to seven times daily. - Lancets lancets Use as directed to check glucose levels up to seven times daily. - alcohol swabs (ALCOHOL PREP PADS) Use as directed to check glucose levels up to seven times daily. - folic acid 400 mcg tablet Take 1 tablet by mouth once daily. - enoxaparin (LOVENOX) 40 mg/0.4 mL Inject 0.4 mL subcutaneously once daily. - VITAMIN D-3 50 mcg (2,000 unit) tablet Take 1 tablet by mouth once daily. - 25/iron fum/folic/dha (-1 ORAL) Take 1 tablet by mouth. - aspirin 81 mg chewable tablet Take 81 mg by mouth. Encounter Status:Closed by EMMA NGUYEN on 05/27/23 [facility] 05-26-2023 Note HNO ID: [id number] Author: Emma Nguyen RD Service: ? Author Type: Registered Dietitian Type: Progress Notes Filed: 05/27/2023 3:19 PM Note Text: Nutrition Therapy Initial Assessment Nutrition Diagnosis: Altered nutrition-related lab values, related to, and endocrine dysfunction, as evidenced by elevated blood sugars in requiring insulin . RECOMMENDED MALNUTRITION DIAGNOSIS: NO MALNUTRITION IDENTIFIED NUTRITION CARE PLAN Nutrition Intervention 05/26/2023: comprehensive nutrition education Goals: Fasting glucose <95 mg/dL; 1 hr glucose ,140 mg/dL, 2 hr glucose ,120 mg/dL; mean glucose of 86 mg/dL. 1. Distribute carbohydrate evening throught out the day, Choose whole grain starches and grains, avoid white and refined grains and sources of concentration sugars . Carbohydrates are the starches, fruits and milk group and is defined as 15 grams per serving/choice. 2. Keep breakfast at 15-30 grams carbohydrate; meals 30-45 grams and snacks 15-grams of carbohydrate, include healthy protein in meals and snacks; wheat bread (and a 6 ) when having subway; 3. Distribute meals and snacks every 2-3 hours. 4. Aim for 20-35 grams of fiber. Change to whole grain bread, whole grain crackers, try chick pea past/edammame pasta etc; 5. Limit saturated fat, choose lean proteins, healthy fast such as olive oil, canola oil, avocados, nuts/seeds, etc. Choose lean proteins only: chicken, turkey, fish With fruit choose an extra small banana or take half one fruit per eating eveng All beverages calorie free and sugar free, look for sugar free strawberry slyrup; look Fairlife milk 6. Daily exercise of 30-60 minutes (work counts, consider adding a walk on weekends.) A short walk after meals can help control post meal blood sugars Nutrition Monitoring AND Evaluation: blood sugars in normal range Need for Follow up: 2-3 weeks Patient presents for initial MNT as relates to gestational diabetes now at 26 weeks; on insulin 50 units of Lispro and NPH in evening. Has been monitoring blood sugars, most in target range with insulin increase. Intake noted for eating three meals and 3 snacks. Breakfast has excessive carb intake, lunch and dinner are carb controlled. Carbs eaten tend to be low fiber, is having cookies and a sweet milk drink in the evening. Overall intake is of low fiber/whole grains. Has been eating the same foods for past 10 weeks. No regular exercise but is active at work . Weight noted for a few pounds less than prepregnancy weight. Patient's symptoms are: elevated blood sugars Diet History: Lately 80's (130) Breakfast - past 10 weeks a yogurt lite samoan, large banana, honey roasted peanuts or protein bar 8 ital herb crackers wit 8 psc cheese; Post meal low 90 's Snack - occ. pretzels Lunch - past 10 weeks pbj on low carb wheat bread and 8 crackers with cheese (16 gms carb),carrots and cucumbers with veggie, occ protein bar or nuts if diet Dr. Martinez Snack - peanuts or nuts Dinner - [place] in ital dressing, potatoes with onions and asparagus (chicken, smoked sausage, chicken legs baked, cheddar hunter rice with green beans; occ pizza, or subway Snack - occ 3 oreo cookies, strawberry milk (sugar sweetened) wit pills Beverages - zero sugar Dr. Martinez, 5 bottles water per day at work Alcohol- no Vitamins/Supplements - , vit D, baby Asa, and extra folate Used to drink a lot of mt dew. Activity: Activities of Daily Living: varies Additional Activity: active at work Is active at work Anthropometrics: Height: Last 1 Encounter Ht Readings: Date: Ht: 05/26/2023 170.2 cm (5' 7 ) Current weight: Last 1 Encounter Wt Readings: Date: Wt: 05/26/2023 118.6 kg (261 lb 8 oz) Body mass index is 40.96 kg/m?. Resting Metabolic Rate: 1940 Malnutrition Screening Significant unintentional weight loss? No Eating less than 75% of usual intake for more than 2 weeks? No Potential Signs of Inflammation: no identifiable sources Education Materials Provided: Healthy You - Planning Healthy Meals READINESS TO LEARN Cognitive ability: Alert and oriented Motivation to learn: Interested Family support: Unable to assess - Family not present Instruction provided to: Patient Patient learns best by: Individual Instruction Factors affecting learning: None Physical limitations affecting learning: None Referred/Supervised by: Tavo/Melissa PRICE Billing Type: Initial Assess/15 min 3 units SIGNATURE: Emma Nguyen RD PATIENT NAME: Betzy Delgado DATE: May 26, 2023 TIME: 3:00 PM [facility] 05-26-[address] - 05/26/2023 3:33 PM EST Goals: Fasting glucose <95 mg/dL; 1 hr glucose ,140 mg/dL, 2 hr glucose ,120 mg/dL; mean glucose of 86 mg/dL. 1. Distribute carbohydrate evening throught out the day, Choose whole grain starches and grains, avoid white and refined grains and sources of concentration sugars . Carbohydrates are the starches, fruits and milk group and is defined as 15 grams per serving/choice. 2. Keep breakfast at 15-30 grams carbohydrate; meals 30-45 grams and snacks 15-grams of carbohydrate, include healthy protein in meals and snacks; wheat bread (and a 6 ) when having subway; 3. Distribute meals and snacks every 2-3 hours. 4. Aim for 20-35 grams of fiber. Change to whole grain bread, whole grain crackers, try chick pea past/edammame pasta etc; 5. Limit saturated fat, choose lean proteins, healthy fast such as olive oil, canola oil, avocados, nuts/seeds, etc. Choose lean proteins only: chicken, turkey, fish With fruit choose an extra small banana or take half one fruit per eating eveng All beverages calorie free and sugar free, look for sugar free strawberry slyrup; look Fairlife milk 6. Daily exercise of 30-60 minutes (work counts, consider adding a walk on weekends.) A short walk after meals can help control post meal blood sugars documented in this encounter [facility] 05-26-2023 History of Presen t illness Narrative Nutrition Therapy Initial Assessment Nutrition Diagnosis: Altered nutrition-related lab values, related to, and endocrine dysfunction, as evidenced by elevated blood sugars in requiring insulin . RECOMMENDED MALNUTRITION DIAGNOSIS: NO MALNUTRITION IDENTIFIED NUTRITION CARE PLAN Nutrition Intervention 05/26/2023: comprehensive nutrition education Goals: Fasting glucose <95 mg/dL; 1 hr glucose ,140 mg/dL, 2 hr glucose ,120 mg/dL; mean glucose of 86 mg/dL. 1. Distribute carbohydrate evening throught out the day, Choose whole grain starches and grains, avoid white and refined grains and sources of concentration sugars . Carbohydrates are the starches, fruits and milk group and is defined as 15 grams per serving/choice. 2. Keep breakfast at 15-30 grams carbohydrate; meals 30-45 grams and snacks 15-grams of carbohydrate, include healthy protein in meals and snacks; wheat bread (and a 6 ) when having subway; 3. Distribute meals and snacks every 2-3 hours. 4. Aim for 20-35 grams of fiber. Change to whole grain bread, whole grain crackers, try chick pea past/edammame pasta etc; 5. Limit saturated fat, choose lean proteins, healthy fast such as olive oil, canola oil, avocados, nuts/seeds, etc. Choose lean proteins only: chicken, turkey, fish With fruit choose an extra small banana or take half one fruit per eating eveng All beverages calorie free and sugar free, look for sugar free strawberry slyrup; look Fairlife milk 6. Daily exercise of 30-60 minutes (work counts, consider adding a walk on weekends.) A short walk after meals can help control post meal blood sugars Nutrition Monitoring & Evaluation: blood sugars in normal range Need for Follow up: 2-3 weeks Patient presents for initial MNT as relates to gestational diabetes now at 26 weeks; on insulin 50 units of Lispro and NPH in evening. Has been monitoring blood sugars, most in target range with insulin increase. Intake noted for eating three meals and 3 snacks. Breakfast has excessive carb intake, lunch and dinner are carb controlled. Carbs eaten tend to be low fiber, is having cookies and a sweet milk drink in the evening. Overall intake is of low fiber/whole grains. Has been eating the same foods for past 10 weeks. No regular exercise but is active at work . Weight noted for a few pounds less than prepregnancy weight. Patient's symptoms are: elevated blood sugars Diet History: Lately 80's (130) Breakfast - past 10 weeks a yogurt lite samoan, large banana, honey roasted peanuts or protein bar 8 ital herb crackers wit 8 psc cheese; Post meal low 90 's Snack - occ. pretzels Lunch - past 10 weeks pbj on low carb wheat bread and 8 crackers with cheese (16 gms carb),carrots and cucumbers with veggie, occ protein bar or nuts if diet Dr. Martinez Snack - peanuts or nuts Dinner - [place] in ital dressing, potatoes with onions and asparagus (chicken, smoked sausage, chicken legs baked, cheddar hunter rice with green beans; occ pizza, or subway Snack - occ 3 oreo cookies, strawberry milk (sugar sweetened) wit pills Beverages - zero sugar Dr. Martinez, 5 bottles water per day at work Alcohol- no Vitamins/Supplements - , vit D, baby Asa, and extra folate Used to drink a lot of mt dew. Activity: Activities of Daily Living: varies Additional Activity: active at work Is active at work Anthropometrics: Height: Last 1 Encounter Ht Readings: Date: Ht: 05/26/2023 170.2 cm (5' 7 ) Current weight: Last 1 Encounter Wt Readings: Date: Wt: 05/26/2023 118.6 kg (261 lb 8 oz) Body mass index is 40.96 kg/m . Resting Metabolic Rate: 1940 Malnutrition Screening Significant unintentional weight loss? No Eating less than 75% of usual intake for more than 2 weeks? No Potential Signs of Inflammation: no identifiable sources Education Materials Provided: Healthy You - Planning Healthy Meals READINESS TO LEARN Cognitive ability: Alert and oriented Motivation to learn: Interested Family support: Unable to assess - Family not present Instruction provided to: Patient Patient learns best by: Individual Instruction Factors affecting learning: None Physical limitations affecting learning: None Referred/Supervised by: Dg PRICE Billing Type: Initial Assess/15 min 3 units SIGNATURE: Emma Nguyen RD PATIENT NAME: Betzy Delgado DATE: May 26, 2023 TIME: 3:00 PM documented in this encounter [facility] 05-22-2023 Note HNO ID: [id number] Author: Soumya Mcgill Service: ? Author Type: ? Type: Progress Notes Filed: 05/22/2023 4:04 PM Note Text: Spoke with patient, scheduled 07/07/2023 @ 3:40 pm (virtual appointment) [facility] 05-22-2023 Note HNO ID: [id number] Author: Devang Barone, DO Service: ? Author Type: Physician Type: Progress Notes Filed: 05/22/2023 3:50 PM Note Text: Reason for consultation: f/u - gestational diabetes mellitus Referring Physician: Meliza Lira MD My final recommendations will be communicated back to the requesting physician by way of shared Medical record or letter via US mail. This Team Access Model visit is a virtual encounter. It required patient-provider interaction for the medical decision making as documented below. I have communicated my name and active licensure. The patient's identity and physical location were verified at the time of this visit. Either the patient or their legal branch customer service representative has been informed of the risks and benefits of -- and alternatives to -- treatment through a remote evaluation and consents to proceed with the evaluation remotely. HISTORY OF PRESENT ILLNESS; Ms. Delgado is a 32 year old presenting at 25+ weeks gestation here for f/u regarding gestational diabetes mellitus. Her initial visit with me was 04/09/23. She was diagnosed with GDM after abnormal 3 hour GTT on 04/04/23. POC HbA1c at her first visit here was 5.9%- consistent with preexisting beta cell dysfunction. She does not have a previous history of gestational diabetes. She has a family history of diabetes mellitus including her Mother (borderline) and grandmother. Her prepregnancy weight was 248 lbs and her current weight is 263 lbs. She lost 3 lbs since her initial visit. She has seen DM education and is attempting to follow these instructions. Insulin was initiated at her first visit here and has been adjusted weekly in between visits- most recently on 05/18- her current regimen is NPH 75 units at bedtime and Humalog 45 units prior to dinner. She is eating three meals/day- trying to be mindful of carbohydrate intake. She has been checking her blood glucose 4 times daily. Fasting - 85-104 mg/dL 2 hour post meal - less than 120 mg/dL (one outlier of 160 mg/dL) Hypoglycemia frequency: n/a Hypoglycemia awareness: n/a Hyperglycemia Symptoms: denies blurry vision denies polyuria denies polydipsia denies nocturia denies rapid weight loss Last visit with OB was 05/13- Last u/s was 05/13- EFW [address] centile, AC 56[address], NATAN NL- having a girl! Going for growth scan on 06/10. 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 Salamanca MTHFR gene mutation Homozygous for C677 polymorphism Obesity (BMI 35.0-39.9 without comorbidity) PCOS (polycystic ovarian syndrome) Tobacco use PAST SURGICAL HISTORY Procedure Laterality Date COLONOSCOPY SCREENING age 19 DANDC, DIAG AND/OR THERAPEUTIC L'SCOPE DX W/WO BRUSHINGS/WASHINGS 07/29/2019 Endometriosis-Dr Brionna Maynard PAST SURGICAL HISTORY OF wisdom teeth TONSILLECTOMY AND ADENOIDECTOMY HX 2000 FAMILY HISTORY Problem Relation Age of Onset Heart Attack Mother Coronary Artery Disease Mother 42 MIx2 Stroke Mother Clotting Disorder Mother Blood Clots Mother No Known Problems Father Asthma Sister No Known Problems Sister No Known Problems Brother No Known Problems Brother No Known Problems Brother No Known Problems Brother Coronary Artery Disease Maternal Grandmother DE DVT Maternal Grandmother Diabetes Maternal Grandmother Coronary Artery Disease Maternal Grandfather 42 DE Heart Attack Maternal Grandfather Colon Cancer Paternal Grandmother age 60s Cancer Paternal Grandfather gastric Cancer Maternal Aunt uterine Cancer Maternal Uncle lung, lymph Social History Tobacco Use Smoking status: Every Day Packs/day: 0.25 Years: 15.00 Additional pack years: 0.00 Total pack years: 3.75 Types: Cigarettes Last attempt to quit: 02/28/2019 Years since quittin.2 Smokeless tobacco: Never Vaping Use Vaping Use: Never used Substance Use Topics Alcohol use: Not Currently Comment: 1-2 times a year Drug use: No Current Outpatient Medications Medication Sig Dispense Refill insulin NPH (HUMULIN N NPH INSULIN KWIKPEN) 100 unit/mL (3 mL) injection pen 75 units at bedtime 10 Each 5 insulin lispro (HUMALOG KWIKPEN) 100 unit/mL 45 units with dinner 5 Each 5 Insulin Dewey, Disposable, (BD ULTRAFINE III MINI PEN) 31 gauge x 3/16 Once/day with insulin 100 Each 11 blood sugar diagnostic test strip Use as directed to check glucose levels (more content not included)... [facility] 05-22-2023 History of Presen t illness Narrative Spoke with patient, scheduled 07/07/2023 @ 3:40 pm (virtual appointment) Reason for consultation: f/u - gestational diabetes mellitus Referring Physician: Meliza Lira MD My final recommendations will be communicated back to the requesting physician by way of shared Medical record or letter via US mail. This Team Access Model visit is a virtual encounter. It required patient-provider interaction for the medical decision making as documented below. I have communicated my name and active licensure. The patient's identity and physical location were verified at the time of this visit. Either the patient or their legal branch customer service representative has been informed of the risks and benefits of -- and alternatives to -- treatment through a remote evaluation and consents to proceed with the evaluation remotely. HISTORY OF PRESENT ILLNESS; Ms. Delgado is a 32 year old presenting at 25+ weeks gestation here for f/u regarding gestational diabetes mellitus. Her initial visit with me was 04/09/23. She was diagnosed with GDM after abnormal 3 hour GTT on 04/04/23. POC HbA1c at her first visit here was 5.9%- consistent with preexisting beta cell dysfunction. She does not have a previous history of gestational diabetes. She has a family history of diabetes mellitus including her Mother (borderline) and grandmother. Her prepregnancy weight was 248 lbs and her current weight is 263 lbs. She lost 3 lbs since her initial visit. She has seen DM education and is attempting to follow these instructions. Insulin was initiated at her first visit here and has been adjusted weekly in between visits- most recently on 05/18- her current regimen is NPH 75 units at bedtime and Humalog 45 units prior to dinner. She is eating three meals/day- trying to be mindful of carbohydrate intake. She has been checking her blood glucose 4 times daily. Fasting - 85-104 mg/dL 2 hour post meal - less than 120 mg/dL (one outlier of 160 mg/dL) Hypoglycemia frequency: n/a Hypoglycemia awareness: n/a Hyperglycemia Symptoms: denies blurry vision denies polyuria denies polydipsia denies nocturia denies rapid weight loss Last visit with OB was 05/13- Last u/s was 05/13- EFW [address], AC 56[address], NATAN NL- having a girl! Going for growth scan on 06/10. 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 Salamanca MTHFR gene mutation Homozygous for C677 polymorphism Obesity (BMI 35.0-39.9 without comorbidity) PCOS (polycystic ovarian syndrome) Tobacco use PAST SURGICAL HISTORY Procedure Laterality Date COLONOSCOPY SCREENING age 19 D&C, DIAG AND/OR THERAPEUTIC L'SCOPE DX W/WO BRUSHINGS/WASHINGS 07/29/2019 Endometriosis-Dr Brionna Maynard PAST SURGICAL HISTORY OF wisdom teeth TONSILLECTOMY AND ADENOIDECTOMY HX 1999 FAMILY HISTORY Problem Relation Age of Onset Heart Attack Mother Coronary Artery Disease Mother 42 MIx2 Stroke Mother Clotting Disorder Mother Blood Clots Mother No Known Problems Father Asthma Sister No Known Problems Sister No Known Problems Brother No Known Problems Brother No Known Problems Brother No Known Problems Brother Coronary Artery Disease Maternal Grandmother DE DVT Maternal Grandmother Diabetes Maternal Grandmother Coronary Artery Disease Maternal Grandfather 42 DE Heart Attack Maternal Grandfather Colon Cancer Paternal Grandmother age 60s Cancer Paternal Grandfather gastric Cancer Maternal Aunt uterine Cancer Maternal Uncle lung, lymph Social History Tobacco Use Smoking status: Every Day Packs/day: 0.25 Years: 15.00 Additional pack years: 0.00 Total pack years: 3.75 Types: Cigarettes Last attempt to quit: 02/28/2019 Years since quittin.2 Smokeless tobacco: Never Vaping Use Vaping Use: Never used Substance Use Topics Alcohol use: Not Currently Comment: 1-2 times a year Drug use: No Current Outpatient Medications Medication Sig Dispense Refill insulin NPH (HUMULIN N NPH INSULIN KWIKPEN) 100 unit/mL (3 mL) injection pen 75 units at bedtime 10 Each 5 insulin lispro (HUMALOG KWIKPEN) 100 unit/mL 45 units with dinner 5 Each 5 Insulin Dewey, Disposable, (BD ULTRAFINE III MINI PEN) 31 gauge x 3/16 Once/day with insulin 100 Each 11 blood sugar diagnostic test strip Use as directed to check glucose levels up to seven times daily. 200 Strip 8 Lancets lancets Use as directed to check glucose levels up to seven times daily. 200 Each 8 alcohol swabs (ALCOHOL PREP PADS) Use as directed to check glucose levels up to seven times daily. 200 Each 8 folic acid 400 mcg tablet Take 1 tablet by mouth once daily. enoxaparin (LOVENOX) 40 mg/0.4 mL Inject 0.4 mL subcutaneously once daily. 30 Each 5 VITAMIN D-3 50 mcg (2,000 unit) tablet Take 1 tablet by mouth once daily. 25/iron fum/folic/dha (-1 ORAL) Take 1 tablet by mouth. aspirin 81 mg chewable tablet Take 81 mg by mouth. No current facility-administered medications for this visit. Allergies As of Date: 05/22/2023 (No Known Allergies) Fully Assessed 05/14/2023 REVIEW OF SYSTEMS: General: no fever and no chills Skin: no rashes, pruritis or dry skin Eyes: no blurred or double vision or eye pain Cardiac: denies chest pain, heart palpitations or orthopnea Pulmonary: denies wheezing, productive cough or exertional dyspnea GI: denies nausea and denies vomiting Musc: denies history of upper or lower extremity weakness Reproductive: gravid at 25+ weeks gestation, hx of PCOS, was taking letrozole to achieve . Endocrine: denies polyuria, polydipsia, nocturia, blurry vision or excessive fatigue Hematology: Negative for anemia, easy bleeding and bruising. PHYSICAL EXAM: No vitals as this was a virtual visit GENERAL: Alert, no distress, cooperative SKIN: Skin color, texture, turgor normal. No rashes or lesions. HEAD/SINUSES: No significant findings EYES: sclera non-icteric, EOMs intact. ABDOMEN: gravid at 25+ weeks. EXTREMITIES: Normal exam of the extremities NEURO: AAO x 3 , no focal deficits The remainder of the physical exam is noncontributory. DATA: Hemoglobin A1C (POCT) (%) Date Value 04/09/2023 5.9 IMPRESSION: Ms. Delgado is a 32 year old female at 25+ weeks gestation here for evaluation of gestational diabetes. RECOMMENDATIONS: 1. The patient was counseled regarding the maternal and risks of hyperglycemia during . risks include, but are not limited to: congenital abnormalities, hypoxia and stillbirth, macrosomia, shoulder dystocia and hypoglycemia. Maternal risks include increased risks of pre-eclampsia and delivery. 2. I recommend the patient check her blood glucose fasting and 2 hour after each meal, we have provided her with a glucometer if she does not have one. The following blood glucose targets were discussed: fasting blood glucose concentration between 60-90 mg/dL, and 2 hour postprandial blood glucose concentration of less than 120 mg/dL. She was encouraged to limit carbohydrate intake, to walk after meals, (if not contraindicated) and will be scheduled with our dietitian, (if not done already). Regarding her blood glucose management, I recommend she do the followin) check your sugars fasting (60-90 mg/dL) and 2 hours post meal (less than 120 mg/dL) 2) forward me your blood glucose data weekly ( ) as you have been doing 3) increase NPH to 80 units at bedtime and Humalog 50 units prior to dinner. 4) see me in 6 weeks (virtual visit) Betzy will call us with any questions or concerns in the interim. Rx sent to her pharmacy. She met with our RN for insulin instructions. 3. Patient will require repeat 2 hr 75g OGTT 8 weeks after delivery to ensure resolution of diabetes. She was counseled that her chances of future pregnancies complicated by diabetes are high, and her 5 year risk of developing diabetes approaches 50%. Adherence to proper diet and exercise regimen will help reduce these risks. I spent a total of 30 minutes on the date of the service which included preparing to see the patient, [id number] patient care, completing clinical documentation, obtaining and/or reviewing separately obtained history, performing a medically appropriate examination, and counseling and educating the patient/family/caregiver. Devang Barone DO documented in this encounter [facility] 05-16-2023 Miscellaneous Notes Poke to patient. She was able to get the Insulin from [facility] pharmacy. Please recheck on friday AM to be sure she got her insulin Thanks KB Spoke to pharmacy. They do not have Humulin N in stuck. Patient has to call other [facility] around and find out if they have it. They also are asking for a new prescription for Humalog. The dose was increased to 40units daily. Prescription for Humalog 40 units t have been called to [facility] pharmacy 05/14/2023 at 12:42 PM by Mirna Dee, DANIEL. I spoke with Pharmacist in the pharmacy. Spoke to patient and advised to check with other pharmacies if they have it in stuck, and let us know if she needs anything from us. Re: insulin NPH (HUMULIN N NPH INSULIN KWIKPEN) 100 unit/mL (3 mL) injection pen Si units at bedtime pt states her Pharmacy has been out of stock of this insulin since Sat she has been using her pen at home; but now she's down to maybe 1 or 2 doses and they're not open tomorrow she's getting nervous about what to do in case it's not back in stock - Asking if there is an alternative insulin she can be prescribed just to have in case she runs out before they get her insulin back in stock? she said her BS have been stable and she's not having any issues there and has adequate supplies of everything else Please call her back today ph # [phone] detailed vmx okay / mycharts okay too thanks documented in this encounter [facility] 05-13-2023 Note HNO ID: [id number] Author: Vaibhav Patel MD Service: ? Author Type: Physician Type: Progress Notes Filed: 05/13/2023 2:26 PM Note Text: [facility] Visit S: Patient seen after SMA. Patient with questions on risk O: BP 126/80 Wt 263 lb 12.8 oz (119.7 kg) LMP 11/25/2022 (Exact Date) BMI 41.32 kg/m? Gen well appearing. Psych mood good. A/P; GDM, class A2 Endocrine- Dr. Barone GDM [facility]. Recent adjustment in insulin. Today EFW 66% Plan 1. Serial growth every 4 weeks. 2. testing starting at 32 weeks. 3. Delivery by 39 weeks. 4. Growth follow up in 4 weeks. Vaibhav Patel MD [facility] 05-13-2023 History of Presen t illness Narrative [facility] Visit S: Patient seen after SMA. Patient with questions on risk O: BP 126/80 Wt 263 lb 12.8 oz (119.7 kg) LMP 11/25/2022 (Exact Date) BMI 41.32 kg/m Gen well appearing. Psych mood good. A/P; GDM, class A2 Endocrine- Dr. Barone GDM [facility] Evette. Recent adjustment in insulin. Today EFW 66% Plan 1. Serial growth every 4 weeks. 2. testing starting at 32 weeks. 3. Delivery by 39 weeks. 4. Growth follow up in 4 weeks. Vaibhav Patel MD documented in this encounter [facility] 05-13-2023 Miscellaneous Notes RR- VB No. LOF No. CTXS No. Movement: present. Other c/o: findds BS difficult to control, sees Dr. Barone Medication list reviewed. Physical Exam See Flow Sheet Abd: soft, nontender, gravid Ext: edema: Trace A/P 24w1d Estimated Date of Delivery: 09/01/23 Labs: 28 week labs next visit US and meet w/ MFM today Cont. lovenox due to h/o IUFD, desires to continue cont. ASA for preeclampsia prevention prot/crea ration today, get CMP w/ next blood draw Meliza Lira M.D. documented in this encounter [facility] 05-13-2023 Instructions Leydi Nayak Ma - 05/13/2023 1:31 PM EST SEQUENTIAL SCREENINGS The [facility] offers sequential screenings for women who are interested in screenings for chromosomal abnormalities and certain defects during a . The sequential screen combines ultrasound and blood tests to determine the risk of chromosomal abnormalities, including Down's Syndrome (Trisomy 21) and Trisomy 18, as well as open neural tube defects including spina bifida. Ultrasound examination is performed between 11 weeks and 13 weeks gestational age. Blood tests are drawn after the ultrasound and again later in the between 15 and 21 weeks gestational age. Please let your physician know if you are interested in this testing. It will require an appointment with our commercial hvac service technician. This is not an ultrasound performed by a physician in our office during a routine visit. SIGNS AND SYMPTOMS OF LABOR 1. Contractions every 10 minutes or more often 2. Clear, pink, or brownish fluid (water) leaking from vagina 3. Feeling that baby is pushing down, pressure 4. Low, dull backache 5. Cramps that feel like a period 6. Cramps with or without diarrhea If you notice any of the above symptoms, contact our office at [phone] and ask to speak with a nurse. After hours, you can call doctors registry at [phone] OR call [facility] at [phone] and ask to have the doctor director of publications paged. If you consider this an emergency, dial [phone] or go to your nearest emergency department. NEED HELP? Are you dealing with a violent or abusive relationship? Are you a victim of rape or sexual assult? Call [facility] ([place]) 24 hour Crisis Hotline: 161.725.2940 or 019-864-3245. MANUAL Your Guide to a Healthy manual is now on-line. Visit [email or web address] to download your free copy documented in this encounter [facility] 05-11-2023 Miscellaneous Notes Reviewed BG data- responded as follows: Good morning- I reviewed your BG data- fasting (and at times post dinner) still a bit high. Lets increase NPH to 70 units at bedtime and Humalog to 40 units prior to dinner. Will review again next week- thanks! ELSY documented in this encounter [facility] 05-03-2023 Miscellaneous Notes Reviewed BG data- responded as follows: Good afternoon- I reviewed your BG data- fasting, post dinner improving but still not quite at goal. Lets increase NPH to 55 units at bedtime and increase Humalog to 35 units prior to dinner. Will review again next week- thanks! Dr Barone documented in this encounter [facility] 05-02-2023 Note HNO ID: [id number] Author: Rosalba Flores RD Service: ? Author Type: Registered Dietitian Type: Progress Notes Filed: 05/02/2023 1:14 PM Note Text: DIABETES SELF-MANAGEMENT EDUCATION AND SUPPORT FOLLOW-UP VISIT Type of Diabetes: Gestational ( diabetes in ) Location: [place] Type of visit: Virtual (with video) group I have communicated my name and active licensure. The patient's identity and physical location were verified at the time of this visit. Either the patient or their legal branch customer service representative has been informed of the risks and benefits of -- and alternatives to -- treatment through a remote evaluation and consents to proceed with the evaluation remotely. Types of DSMES: Initial/Comprehensive (add to or update ADA spreadsheet) This group education was done as part of a Shared Medical Appointment that also included a physician and a pharmacist. PATIENT'S MAIN CONCERN TODAY: Review GDM topics AND MFM consult. Pt met with Thong Prieto RN on 04/09/23 for initial DM education Support person present for education today: none Cognitive ability: Alert and oriented Motivation to learn: Interested Learning barriers identified by educator: none Method of instruction: written, verbal, and demonstration DIABETES SELF-MANAGEMENT FINDINGS: Monitoring: Checking 4x per day, FBG and 1 hour after meals Meal Planning: Reviewed CHO guidelines and nutrition tips/tricks Medications: pt states they are currently taking NPH 40 units at bedtime AND Humalog 25 units before dinner Problem Solving: Reviewed Hypoglycemia Physical Activity: No exercise currently Reducing Risks: not discussed Healthy Coping: not discussed INTERVENTIONS/TOPICS COVERED: -Defining Gestational Diabetes Disease process -Making lifestyle changes to manage Gestational diabetes (food, activity and medication) -Monitoring: blood glucose (BG) target goal. Instructed on the target BG fasting (60-95 mg/dL), 1 hour after main meals (less than 140 mg/dL) and 2 hours after main meals (less than 120 mg/dL). Instructed to fax, e-mail, or call MD with weekly BG results. But if BG readings are elevated, instructed to call MD earlier. -Provided with logsheet for ease of tracking BG numbers -Blood Glucose Meter maintenance (meters, sharps disposal and, if available, control solution). -Reviewed treatment options: Gestational diabetes medications (orals and insulin) Instructed on Insulin Therapy in case patient will need insulin during -Vial AND Syringe/pen preparation, Injection technique, Site selection and rotation, disposal of sharps -Food models used for portion size and sample meals -Carbohydrate counting/choices /plate method -Instructed on <30 grams of carbs for breakfast; 45-60 grams of carbs for lunch and dinner; <15 grams of carbs for three snacks in between main meals and bedtime -Reading food label(s) -Review of the acute complications (causes, s/s and prevention of hypoglycemia and hyperglycemia) EDUCATION HANDOUTS: Healthy You: Diabetes and LEARNING RESPONSE: Diabetes pathophysiology: Needs further instruction/review Healthy eating: Demonstrated understanding/competency today or at previous visit Being active: Demonstrated understanding/competency today or at previous visit Taking medications: Demonstrated understanding/competency today or at previous visit Monitoring glucose: Demonstrated understanding/competency today or at previous visit Acute complications: Demonstrated understanding/competency today or at previous visit Chronic complications: Needs further instruction/review Healthy coping: Not assessed at the visit Diabetes distress and support: Demonstrated understanding/competency today or at previous visit GOAL FOLLOW-UP Medication AND Monitoring Goals -MET POSSIBLE FUTURE TOPICS: 1. The following topics were not assessed due to time limitations, but should be assessed at the next visit: all areas were assessed today or within the last 12 months. 2. The following topics should be taught or reinforced at the next visit: healthy eating , being active, taking medications, and monitoring glucose. DIABETES EDUCATION PLAN: Individual follow-up as needed To schedule a follow up visit, please call Time Spent (Minutes): 30 This visit note will be communicated to the healthcare provider via access to shared medical record. SIGNATURE: Rosalba Flores RD PATIENT NAME: Betzy Delgado DATE: May 02, 2023 TIME: 12:58 PM PAGER: [facility] 05-02-2023 Note HNO ID: [id number] Author: Keke Hinds [facility] Service: ? Author Type: Pharmacist Type: Progress Notes Filed: 05/20/2023 2:59 PM Note Text: Betzy Delgado attended a virtual gestational diabetes SMA. This was a comprehensive class with the physician and dietitian. The pharmacist portion included the following education topics: How to Keep Your Glucose Levels Under Control How to Check Your Blood Glucose Tips for Getting Accurate Readings Keep Careful Records Report Your Glucose Levels Weekly Physical Activity and Blood Glucose Control Medications for Blood Glucose Control Insulin Oral Medications Instructions for Injections Using a Pen with demonstration Instructions for Injections Using a Vial (Bottle) and Syringe with demonstration Guidelines for Insulin Injections Recommended Insulin Injection Sites Tips for Storing Insulin Why Your Insulin Needs Will Change During Special Concerns Hypoglycemia Hyperglycemia Sick-day rules Handling Stress All participant questions were addressed and answered. Keke Hinds, PharmD, BCPS, BC-ADM, BCACP, CDCES, PAOLO Endocrine Clinical Instrument Calibrator [facility] [facility] 05-01-2023 Note HNO ID: [id number] Author: Kaylee Alas MD Service: ? Author Type: Physician Type: Progress Notes Filed: 05/02/2023 2:24 PM Note Text: OBSTETRICS MATERNAL MEDICINE CONSULT This is a virtual visit using NPRom Video Visit. It required patient-provider interaction for the medical decision making as documented below. My final recommendations will be communicated back to the requesting physician by way of shared Medical record or letter via US mail. Date of service: 05/01/2023 Referring Provider: Dr. Marly Parr HPI: Ms. Delgado is a 32 year old old at 22w3d who presents for a virtual shared medical appointment due to newly diagnosed gestational diabetes. She is being followed by Dr. Barone weekly. She was initially started on NPH 10 units at bedtime and has increased the dose over the past few weeks. She is now on NPH 40 units at bedtime and humalog 25 with dinner. Her fasting glucose levels are in the low 100s. She has been on metformin since she got diagnosed with PCOS in 2015. She has always had Hgb A1cs around 5.7%. She has never had a Hgb A1c above 6.4% but has been on metformin with these test. She has never been formally diagnosed with type 2 diabetes but there was concern as her glucose levels on the three hour test were very high. She is obese with a BMI of 42. Her is otherwise complicated by a history of demise at 24.6 weeks in a prior , MTHFR homozygous, and recurrent loss. These issues were discussed with Dr Martinez from maternal- medicine on 04/01/23 and therefore we not discussed in detail today. Please see her consult note from that day for full visit details. 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 Cheung-Caesar, High risk-Dr. Salamanca - MTHFR gene mutation Homozygous for C677 polymorphism - Obesity (BMI 35.0-39.9 without comorbidity) - PCOS (polycystic ovarian syndrome) - Tobacco use PAST SURGICAL HISTORY Procedure Laterality Date - COLONOSCOPY SCREENING age 19 - DANDC, DIAG AND/OR THERAPEUTIC - L'SCOPE DX W/WO BRUSHINGS/WASHINGS 07/29/2019 Endometriosis-Dr Brionna Maynard - PAST SURGICAL HISTORY OF wisdom teeth - TONSILLECTOMY AND ADENOIDECTOMY HX 1999 ALLERGIES No Known Allergies Current Outpatient Medications Medication Sig Dispense Refill - insulin NPH (HUMULIN N NPH INSULIN KWIKPEN) 100 unit/mL (3 mL) injection pen 40 units at bedtime 5 Each 5 - insulin lispro (HUMALOG KWIKPEN) 100 unit/mL 25 units with dinner 5 Each 5 - Insulin Dewey, Disposable, (BD ULTRAFINE III MINI PEN) 31 gauge x 3/16 Once/day with insulin 100 Each 11 - blood sugar diagnostic test strip Use as directed to check glucose levels up to seven times daily. 200 Strip 8 - Lancets lancets Use as directed to check glucose levels up to seven times daily. 200 Each 8 - alcohol swabs (ALCOHOL PREP PADS) Use as directed to check glucose levels up to seven times daily. 200 Each 8 - folic acid 400 mcg tablet Take 1 tablet by mouth once daily. - enoxaparin (LOVENOX) 40 mg/0.4 mL Inject 0.4 mL subcutaneously once daily. 30 Each 5 - VITAMIN D-3 50 mcg (2,000 unit) tablet Take 1 tablet by mouth once daily. - 25/iron fum/folic/dha (-1 ORAL) Take 1 tablet by mouth. - aspirin 81 mg chewable tablet Take 81 mg by mouth. No current facility-administered medications for this visit. OB History T0 L0 SAB1 IAB0 Ectopic0 Multiple0 Live Births0 Social History Tobacco Use - Smoking status: Every Day Packs/day: 0.25 Years: 15.00 Additional pack years: 0.00 Total pack years: 3.75 Types: Cigarettes Last attempt to quit: 02/28/2019 Years since quittin.1 - Smokeless tobacco: Never Vaping Use - Vaping Use: Never used Substance Use Topics - Alcohol use: Not Currently Comment: 1-2 times a year - Drug use: No Vitals: LMP 11/25/2022 labs: 1 hour GCT: No results found for: GLUP 3 hour GTT 04/04/23: 131, 311, 291, 166 Most recent labs and imaging results reviewed. Glucose levels: Glucose levels followed by Dr. Barone Counseling: Diabetes in has both and maternal sequelae. The HAPO study shows that the sequelae from diabetes are directly related to maternal glucose control. growth complications include macrosomia (31% vs 3.6%), weight > 4500 gms (12.6% vs 3.9%), weight > 5000 gms (2.7% vs 0.5%). This (more content not included)... [facility] 04-27-2023 Miscellaneous Notes Reviewed BG data- responded as follows: Good morning- I reviewed your BG data- fasting and post dinner still a little high- lets increase NPH to 40 units at bedtime and increase Humalog to 25 units prior to dinner. Let me know how things are going next week- thanks! KB documented in this encounter [facility] 04-19-2023 Miscellaneous Notes Reviewed BG data- responded as follows: Good afternoon- I reviewed your BG data- I would recommend that you adjust insulin as follows: increase NPH to 30 units at bedtime, increase Humalog to 18 units at bedtime. Will review again next week- thanks! Dr Barone documented in this encounter [facility] 04-17-2023 Miscellaneous Notes Left msg to call back to schedule consult. documented in this encounter [facility] 04-12-2023 Miscellaneous Notes Reviewed BG data- responded as follows: Good morning- I reviewed your BG data- I would recommend that you do the following: increase NPH to 20 units at bedtime, start Humalog 10 units prior to dinner. I will send rx for Humalog to your pharmacy now. Let me know how things are going in a few days. thanks Dr Barone documented in this encounter [facility] 04-10-2023 Miscellaneous Notes Patient notified letter sent via [employer]. Jojo Keita RN Please write note as reasonable to work 5 days per week. Neo Melendez MD 19w3d Patient was previously given letter that stated to only allow patient to work 40 hours per week d/t her high risk . 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 Recently her employer has mandated Saturdays though, so they are scheduling her for 3 hours on Wednesdays and 5 hours on Saturdays to still be at the 40 hour week, but now 6 days a week. Asking provider's opinion if she could get letter stating to work 40 hours M-F only? Aware she may not get answer back until next week if provider does not review message today. Jojo Keita RN documented in this encounter [facility] 04-09-2023 Note HNO ID: [id number] Author: Devang Barone DO Service: ? Author Type: Physician Type: Progress Notes Filed: 04/09/2023 3:23 PM Note Text: Reason for consultation: Evaluation of gestational diabetes mellitus Referring Physician: Meliza Lira MD My final recommendations will be communicated back to the requesting physician by way of shared Medical record or letter via US mail. HISTORY OF PRESENT ILLNESS; Ms. Delgado is a 32 year old presenting at 19+ weeks gestation for consultation regarding her recent diagnosis of gestational diabetes. She was diagnosed with GDM after abnormal 3 hour GTT on 04/04/23. POC HbA1c today is 5.9%. She does not have a previous history of gestational diabetes. She has a family history of diabetes mellitus including her Mother (borderline) and grandmother. Her prepregnancy weight was 248 lbs and her current weight is 266 lbs. Saw DM eduction today and intends on following these instructions. She is eating three meals/day. She has been checking her blood glucose 4 times daily. Fasting - 126-135 mg/dL 1 hour post meal - 135 to 160 mg/dL Hypoglycemia frequency: n/a Hypoglycemia awareness: n/a Hyperglycemia Symptoms: denies blurry vision denies polyuria denies polydipsia denies nocturia denies rapid weight loss Last visit with OB was 04/01- went for u/s on 04/01- [facility] [address], [address], [place]- having a girl! 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 Salamanca MTHFR gene mutation Homozygous for C677 polymorphism Obesity (BMI 35.0-39.9 without comorbidity) PCOS (polycystic ovarian syndrome) Tobacco use PAST SURGICAL HISTORY Procedure Laterality Date COLONOSCOPY SCREENING age 19 DANDC, DIAG AND/OR THERAPEUTIC L'SCOPE DX W/WO BRUSHINGS/WASHINGS 07/29/2019 Endometriosis-Dr Brionna Maynard PAST SURGICAL HISTORY OF wisdom teeth TONSILLECTOMY AND ADENOIDECTOMY HX 2000 FAMILY HISTORY Problem Relation Age of Onset Heart Attack Mother Coronary Artery Disease Mother 42 MIx2 Stroke Mother Clotting Disorder Mother Blood Clots Mother No Known Problems Father Asthma Sister No Known Problems Sister No Known Problems Brother No Known Problems Brother No Known Problems Brother No Known Problems Brother Coronary Artery Disease Maternal Grandmother DE DVT Maternal Grandmother Diabetes Maternal Grandmother Coronary Artery Disease Maternal Grandfather 42 DE Heart Attack Maternal Grandfather Colon Cancer Paternal Grandmother age 60s Cancer Paternal Grandfather gastric Cancer Maternal Aunt uterine Cancer Maternal Uncle lung, lymph Social History Tobacco Use Smoking status: Every Day Packs/day: 0.25 Years: 15.00 Additional pack years: 0.00 Total pack years: 3.75 Types: Cigarettes Last attempt to quit: 02/28/2019 Years since quittin.1 Smokeless tobacco: Never Vaping Use Vaping Use: Never used Substance Use Topics Alcohol use: Not Currently Comment: 1-2 times a year Drug use: No Current Outpatient Medications Medication Sig Dispense Refill Blood-Glucose Meter Use as directed to check glucose levels up to seven times daily. 1 Each 0 blood sugar diagnostic test strip Use as directed to check glucose levels up to seven times daily. 200 Strip 8 Lancets lancets Use as directed to check glucose levels up to seven times daily. 200 Each 8 alcohol swabs (ALCOHOL PREP PADS) Use as directed to check glucose levels up to seven times daily. 200 Each 8 folic acid 400 mcg tablet Take 1 tablet by mouth once daily. enoxaparin (LOVENOX) 40 mg/0.4 mL Inject 0.4 mL subcutaneously once daily. 30 Each 5 VITAMIN D-3 50 mcg (2,000 unit) tablet Take 1 tablet by mouth once daily. 25/iron fum/folic/dha (-1 ORAL) Take 1 tablet by mouth. aspirin 81 mg chewable tablet Take 81 mg by mouth. No current facility-administered medications for this visit. Allergies As of Date: 04/09/2023 (No Known Allergies) Fully Assessed 04/01/2023 REVIEW OF SYSTEMS: General: no fever and no chills Skin: no rashes, pruritis or dry skin Eyes: no blurred or double vision or eye pain Cardiac: denies chest pain, heart palpitations or orthopnea Pulmonary: denies wheezing, productive cough or exertional dyspnea GI: denies nausea and denies vomiting Musc: denies history of upper or lower extremity weakness Reproductive: gravid at 19 weeks gestation, hx of PCOS, was taking letroz (more content not included)... [facility] 04-09-2023 Nurse Note AMBULATORY PATIENT EDUCATION NOTE TOPIC: SURVIVAL SKILLS: Medication Administration Insulin Pen READINESS TO LEARN COGNITIVE ABILITY: Alert and oriented MOTIVATION TO LEARN: Interested FAMILY SUPPORT: High - Very involved in pt care INSTRUCTION PROVIDED TO: Patient and Spouse PATIENT LEARNS BEST BY: Individual Instruction Written Instruction - Hand-outs Verbal Instruction Demonstration FACTORS AFFECTING LEARNING: None PHYSICAL LIMITATIONS AFFECTING LEARNING: None LEARNING RESPONSE DIAGNOSIS: GDM METHOD OF INSTRUCTION: Individual instruction Group class instruction Written instruction - handouts Verbal instruction PATIENT / FAMILY RESPONSE: Verbalizes understanding of: SELF INJECTION- Correct procedure to administer self injection using clean technique FOLLOW-UP PLAN: Patient instructed to call with any further issues Recommend - Recommend continued instruction and follow up as directed SUPPLEMENTAL MATERIAL: Diabetes Guide REFERRAL (RECOMMENDATION): None Electronically Signed By: Mirna Dee RN In Department: ENDOCRINOLOGY Time spent on patient education: 25 minutes. documented in this encounter [facility] 04-09-2023 Instructions Devang Barone DO - 04/09/2023 3:04 PM EDT 1) check your sugars fasting (60-90 mg/dL) and 2 hours post meal (less than 120 mg/dL) 2) forward me your blood glucose data weekly ([email or web address])- send in the next few days. 3) start insulin as follows: NPH 10 units at bedtime 4) see me in 6 weeks (virtual visit) documented in this encounter [facility] 04-09-2023 History of Presen t illness Narrative Reason for consultation: Evaluation of gestational diabetes mellitus Referring Physician: Meliza Lira MD My final recommendations will be communicated back to the requesting physician by way of shared Medical record or letter via US mail. HISTORY OF PRESENT ILLNESS; Ms. Delgado is a 32 year old presenting at 19+ weeks gestation for consultation regarding her recent diagnosis of gestational diabetes. She was diagnosed with GDM after abnormal 3 hour GTT on 04/04/23. POC HbA1c today is 5.9%. She does not have a previous history of gestational diabetes. She has a family history of diabetes mellitus including her Mother (borderline) and grandmother. Her prepregnancy weight was 248 lbs and her current weight is 266 lbs. Saw DM eduction today and intends on following these instructions. She is eating three meals/day. She has been checking her blood glucose 4 times daily. Fasting - 126-135 mg/dL 1 hour post meal - 135 to 160 mg/dL Hypoglycemia frequency: n/a Hypoglycemia awareness: n/a Hyperglycemia Symptoms: denies blurry vision denies polyuria denies polydipsia denies nocturia denies rapid weight loss Last visit with OB was 04/01- went for u/s on 04/01- [facility] [address], [address], [place]- having a girl! 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 Salamanca MTHFR gene mutation Homozygous for C677 polymorphism Obesity (BMI 35.0-39.9 without comorbidity) PCOS (polycystic ovarian syndrome) Tobacco use PAST SURGICAL HISTORY Procedure Laterality Date COLONOSCOPY SCREENING age 19 D&C, DIAG AND/OR THERAPEUTIC L'SCOPE DX W/WO BRUSHINGS/WASHINGS 07/29/2019 Endometriosis-Dr Brionna Maynard PAST SURGICAL HISTORY OF wisdom teeth TONSILLECTOMY AND ADENOIDECTOMY HX 2000 FAMILY HISTORY Problem Relation Age of Onset Heart Attack Mother Coronary Artery Disease Mother 42 MIx2 Stroke Mother Clotting Disorder Mother Blood Clots Mother No Known Problems Father Asthma Sister No Known Problems Sister No Known Problems Brother No Known Problems Brother No Known Problems Brother No Known Problems Brother Coronary Artery Disease Maternal Grandmother DE DVT Maternal Grandmother Diabetes Maternal Grandmother Coronary Artery Disease Maternal Grandfather 42 DE Heart Attack Maternal Grandfather Colon Cancer Paternal Grandmother age 60s Cancer Paternal Grandfather gastric Cancer Maternal Aunt uterine Cancer Maternal Uncle lung, lymph Social History Tobacco Use Smoking status: Every Day Packs/day: 0.25 Years: 15.00 Additional pack years: 0.00 Total pack years: 3.75 Types: Cigarettes Last attempt to quit: 02/28/2019 Years since quittin.1 Smokeless tobacco: Never Vaping Use Vaping Use: Never used Substance Use Topics Alcohol use: Not Currently Comment: 1-2 times a year Drug use: No Current Outpatient Medications Medication Sig Dispense Refill Blood-Glucose Meter Use as directed to check glucose levels up to seven times daily. 1 Each 0 blood sugar diagnostic test strip Use as directed to check glucose levels up to seven times daily. 200 Strip 8 Lancets lancets Use as directed to check glucose levels up to seven times daily. 200 Each 8 alcohol swabs (ALCOHOL PREP PADS) Use as directed to check glucose levels up to seven times daily. 200 Each 8 folic acid 400 mcg tablet Take 1 tablet by mouth once daily. enoxaparin (LOVENOX) 40 mg/0.4 mL Inject 0.4 mL subcutaneously once daily. 30 Each 5 VITAMIN D-3 50 mcg (2,000 unit) tablet Take 1 tablet by mouth once daily. 25/iron fum/folic/dha (-1 ORAL) Take 1 tablet by mouth. aspirin 81 mg chewable tablet Take 81 mg by mouth. No current facility-administered medications for this visit. Allergies As of Date: 04/09/2023 (No Known Allergies) Fully Assessed 04/01/2023 REVIEW OF SYSTEMS: General: no fever and no chills Skin: no rashes, pruritis or dry skin Eyes: no blurred or double vision or eye pain Cardiac: denies chest pain, heart palpitations or orthopnea Pulmonary: denies wheezing, productive cough or exertional dyspnea GI: denies nausea and denies vomiting Musc: denies history of upper or lower extremity weakness Reproductive: gravid at 19 weeks gestation, hx of PCOS, was taking letrozole to achieve . Endocrine: denies polyuria, polydipsia, nocturia, blurry vision or excessive fatigue Hematology: Negative for anemia, easy bleeding and bruising. PHYSICAL EXAM: BP 109/67 Pulse 102 Wt 121 kg (266 lb 12.8 oz) LMP 11/25/2022 (Exact Date) BMI 41.79 kg/m GENERAL: Alert, no distress, cooperative SKIN: Skin color, texture, turgor normal. No rashes or lesions. HEAD/SINUSES: No significant findings EYES: sclera non-icteric, EOMs intact. ABDOMEN: gravid at 19 weeks. EXTREMITIES: Normal exam of the extremities NEURO: AAO x 3 , no focal deficits The remainder of the physical exam is noncontributory. DATA: Hemoglobin A1C (no units) Date Value 11/19/2017 5.7 IMPRESSION: Ms. Delgado is a 32 year old female at 19+ weeks gestation here for evaluation of gestational diabetes. RECOMMENDATIONS: 1. The patient was counseled regarding the maternal and risks of hyperglycemia during . risks include, but are not limited to: congenital abnormalities, hypoxia and stillbirth, macrosomia, shoulder dystocia and hypoglycemia. Maternal risks include increased risks of pre-eclampsia and delivery. 2. I recommend the patient check her blood glucose fasting and 2 hour after each meal, we have provided her with a glucometer if she does not have one. The following blood glucose targets were discussed: fasting blood glucose concentration between 60-90 mg/dL, and 2 hour postprandial blood glucose concentration of less than 120 mg/dL. She was encouraged to limit carbohydrate intake, to walk after meals, (if not contraindicated) and will be scheduled with our dietitian, (if not done already). Regarding her blood glucose management, I recommend she do the followin) check your sugars fasting (60-90 mg/dL) and 2 hours post meal (less than 120 mg/dL) 2) forward me your blood glucose data weekly ([email or web address])- send in the next few days. 3) start insulin as follows: NPH 10 units at bedtime 4) see me in 6 weeks (virtual visit) Betzy will call us with any questions or concerns in the interim. Rx sent to her pharmacy. She met with our RN for insulin instructions. 3. Patient will require repeat 2 hr 75g OGTT 8 weeks after delivery to ensure resolution of diabetes. She was counseled that her chances of future pregnancies complicated by diabetes are high, and her 5 year risk of developing diabetes approaches 50%. Adherence to proper diet and exercise regimen will help reduce these risks. I spent a total of 60 minutes on the date of the service which included preparing to see the patient, [id number] patient care, completing clinical documentation, obtaining and/or reviewing separately obtained history, performing a medically appropriate examination, and counseling and educating the patient/family/caregiver. Devang Barone DO documented in this encounter [facility] 04-09-2023 Note HNO ID: [id number] Author: Thong Prieto RN Service: ? Author Type: Registered Nurse Type: Progress Notes Filed: 04/09/2023 10:42 AM Note Text: DIABETES CARE AND EDUCATION VISIT Location: [place] Type of visit: In person individual PATIENT'S MAIN CONCERN TODAY: New diagnosis of GDM Support person present for education today: spouse Cognitive ability: Alert and oriented Motivation to learn: Interested Learning barriers identified by educator: tearful and a bit overwhelmed but Method of instruction: written, verbal, and demonstration DIABETES FINDINGS: Monitoring: checking sugars since yesterday, sugars have ranged from 109-222 Meal Planning: reviewed basic meal plan Medications: discussed insulin injection as the most common management strategy, patient is already doing lovenox shots and seems comfortable - we reviewed operation of the insulin pens Problem Solving: Reviewed importance of control to avoid complications for self and developing child Physical Activity: Encouraged moderate 10-15 minute activity after major meals HANDOUTS: Healthy You: Diabetes and LEARNING RESPONSE: Taking medications: Demonstrated understanding/competency today or at previous visit Monitoring glucose: Demonstrated understanding/competency today or at previous visit POSSIBLE FUTURE TOPICS: 1. DIABETES CARE AND EDUCATION PLAN: Individual follow-up Time Spent (Minutes): 45 This visit note will be communicated to the healthcare provider via access to shared medical record. SIGNATURE: Thong Prieto RN PATIENT NAME: Betzy Delgado DATE: April 09, 2023 TIME: 10:29 AM [facility] 04-08-2023 Miscellaneous Notes Pt returned call and was given below message. 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 Italia Munoz LPN' Left message for patient to return phone call. I called Dr Barone office and spoke with Kate. They were able to work her in tomorrow in [place] at [address] Barone is out of the office the following week. Please see if this is an OK time for patient and also schedule her for the diabetic teaching and nutrition appointments as well. If Dr Barone appointment does not work for her she can call [phone] and speak with Soumya. Dr Melendez just feels with her history of IUFD it would be best for her to see Endocrinology CARLOS Agree with plan. Thanks! Neo Melendez MD Dr Melendez, Dr Barone will usually get patiient's in quickly if we ask him to. 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 Supplies have already been ordered. I will cc Dr Martinez in to get any other recommendations for MFM -Dr Martinez see 2 hour GST result-can we wait 3 weeks for MFM consult since that is next time you are here? ----- Message from Neo Melendez MD sent at 04/08/2023 1:56 PM EDT ----- Needs diabetic teaching CARLOS - see phone note Neo Melendez MD documented in this encounter [facility] 04-08-2023 Miscellaneous Notes FMLA paperwork completed, copy to be scanned into EMR, copy filed at nurses station and original will be given to patient at either her next appointment on 04/21/23 or when she stops in to picker / packer forms. Will await further response from [employer] message sent. Italia Munoz LPN Intermittent FMLA paperwork completed and placed on providers desk for signature. Italia Munoz LPN' documented in this encounter [facility] 04-01-2023 Note HNO ID: [id number] Author: Florencia Martinez MD Service: ? Author Type: Physician Type: Progress Notes Filed: 04/01/2023 4:11 PM Note Text: OBSTETRICS MATERNAL MEDICINE CONSULT SERVICE DATE: April 01, 2023 SERVICE TIME: 3:00 REQUESTING PROVIDER: Dr Parr Subjective HISTORY OF THE PRESENT ILLNESS: Betzy is a 32 year old female, , who is at 18w1d with an ABIOLA of 09/01/2023, by Last Menstrual Period dating method. She presents today for anatomy ultrasound and discuss her history of IUFD in 24th week of . She also has history of depression/anxiety, infertility (conceived on letrozole), recurrent first trimester loss (history 2 first trimester DANDCs for loss). Reviewed work up (has seen MARIKA providers through and M at [facility] during work up in past, transferring to [facility] for remainder of this ). On review it appears work up for 24 week IUFD did not reveal etiology. A placental clot was noted on pathology. In subsequent work up was noted to be MTHFR homozygote (on folate). They had normal parental karyotypes, underwent carrier screening and she had uterine cavity evaluation that did not reveal etiology for recurrent first trimester losses. She has been started on aspirin and Lovenox by MARIKA given history. She is feeling well thus far although fatigue has been issue during this . She is currently smoking around 5-7 cigs/day, has cut back from pack per day since learning of . Hopes to continue cessation efforts during . She does have 3 hour glucose tolerance testing planned. She takes Metformin due to PCOS history and insulin resistance. No history of hypertension. HISTORY REVIEW PAST SURGICAL HISTORY Procedure Laterality Date COLONOSCOPY SCREENING age 19 DANDC, DIAG AND/OR THERAPEUTIC L'SCOPE DX W/WO BRUSHINGS/WASHINGS 07/29/2019 Endometriosis-Dr Brionna Maynard PAST SURGICAL HISTORY OF wisdom teeth TONSILLECTOMY AND ADENOIDECTOMY HX 1999 FAMILY HISTORY Problem Relation Age of Onset Heart Attack Mother Coronary Artery Disease Mother 42 MIx2 Stroke Mother Clotting Disorder Mother Blood Clots Mother No Known Problems Father Asthma Sister No Known Problems Sister No Known Problems Brother No Known Problems Brother No Known Problems Brother No Known Problems Brother Coronary Artery Disease Maternal Grandmother DE DVT Maternal Grandmother Diabetes Maternal Grandmother Coronary Artery Disease Maternal Grandfather 42 DE Heart Attack Maternal Grandfather Colon Cancer Paternal Grandmother age 60s Cancer Paternal Grandfather gastric Cancer Maternal Aunt uterine Cancer Maternal Uncle lung, lymph Social History Tobacco Use Smoking status: Every Day Packs/day: 0.25 Years: 15.00 Additional pack years: 0.00 Total pack years: 3.75 Types: Cigarettes Last attempt to quit: 02/28/2019 Years since quittin.0 Smokeless tobacco: Never Vaping Use Vaping Use: Never used Substance Use Topics Alcohol use: Not Currently Comment: 1-2 times a year Drug use: No Obstetric History T0 L0 SAB1 IAB0 Ectopic0 Multiple0 Live Births0 Name of Baby 1: Rebecca Villalba Date: 10/24/17 GA: 24w6d Delivery: Vaginal, Spontaneous Apgar1: Not recorded Apgar5: Not recorded Living: Demise Name of Baby 2: Not recorded Date: 12/09/18 GA: 9w0d Delivery: MISSED AB Apgar1: Not recorded Apgar5: Not recorded Living: Not recorded Name of Baby 3: Not recorded Date: 05/31/21 GA: 8w0d Delivery: MISSED AB Apgar1: Not recorded Apgar5: Not recorded Living: Not recorded Name of Baby 4: Not recorded Date: Not recorded GA: Not recorded Delivery: Not recorded Apgar1: Not recorded Apgar5: Not recorded Living: Not recorded ALLERGIES No Known Allergies PRIOR TO ADMISSION MEDICATIONS: Current Outpatient Medications Medication Instructions aspirin 81 mg, ORAL enoxaparin (LOVENOX) 40 mg/0.4 mL No dose, route, or frequency recorded. iron/folate/B12/C/biotin/zinc (MAXFE, FOLATE, ORAL) ORAL metFORMIN ER (GLUCOPHAGE XR) 500 mg 24 hr tablet 4 tablets, ORAL, DAILY metformin HCl (GLUCOPHAGE ORAL) 500 mg, 4 TIMES DAILY 25/iron fum/folic/dha (-1 ORAL) 1 tablet, ORAL no.82/iron/folate no2 (TL FOLATE ORAL) ORAL progesterone micronized (PROMETRIUM) 200 mg capsule 1 capsule, AT BEDTIME VITAMIN D-3 50 mcg (2,000 unit) tablet 1 tablet, ORAL, DAILY REVIEW OF SYSTEMS: The remainder of the review of systems is negative. Objective LAST VITALS: BP 116/80 Wt 267 lb 3.2 oz (121.2 kg) LMP 11/25/2022 (Exact Date) BMI 41.85 kg/m? PHYSICAL EXAM: General: WD, WN HEENT: NC/AT, sclera white, pupils equal Lungs: normal respiratory effort Abdomen: soft, nontender during US exam FHT: Present on US LABS Diagnostic tests reviewed for today's visit: Outside labs referenced in HPI, progress n (more content not included)... [facility] 04-01-2023 Miscellaneous Notes KJ - No VB/LOF/ctxs. A&P: 3hr GTT ordered H/o 24wk IUFD - MFM consult today. Follow up US ordered. Note for work limiting 40hrs per week. Neo Melendez MD documented in this encounter [facility] 04-01-2023 Instructions s Laura Olvera - 04/01/2023 3:34 PM EDT SEQUENTIAL SCREENINGS The [facility] offers sequential screenings for women who are interested in screenings for chromosomal abnormalities and certain defects during a . The sequential screen combines ultrasound and blood tests to determine the risk of chromosomal abnormalities, including Down's Syndrome (Trisomy 21) and Trisomy 18, as well as open neural tube defects including spina bifida. Ultrasound examination is performed between 11 weeks and 13 weeks gestational age. Blood tests are drawn after the ultrasound and again later in the between 15 and 21 weeks gestational age. Please let your physician know if you are interested in this testing. It will require an appointment with our commercial hvac service technician. This is not an ultrasound performed by a physician in our office during a routine visit. SIGNS AND SYMPTOMS OF LABOR 1. Contractions every 10 minutes or more often 2. Clear, pink, or brownish fluid (water) leaking from vagina 3. Feeling that baby is pushing down, pressure 4. Low, dull backache 5. Cramps that feel like a period 6. Cramps with or without diarrhea If you notice any of the above symptoms, contact our office at [phone] and ask to speak with a nurse. After hours, you can call doctors registry at [phone] OR call [facility] at [phone] and ask to have the doctor director of publications paged. If you consider this an emergency, dial [phone]--[phone] or go to your nearest emergency department. NEED HELP? Are you dealing with a violent or abusive relationship? Are you a victim of rape or sexual assult? Call [facility] ([place]) 24 hour Crisis Hotline: 587.901.9869 or 453-869-0888. MANUAL Your Guide to a Healthy manual is now on-line. Visit [email or web address] to download your free copy documented in this encounter [facility] documented as of this encounter (statuses as of 04/02/2023) [facility]-10-2023 History of Past illness Narrative* Problem Noted Date Diagnosed Date Resolved Date Lupus anticoagulant disorder 04/01/2023 documented as of this encounter (statuses as of 04/04/2023) [facility]2023 History of Past illness Narrative* Problem Noted Date Diagnosed Date Resolved Date Lupus anticoagulant disorder 04/01/2023 documented as of this encounter (statuses as of 04/08/2023) [facility]2023 History of Past illness Narrative* Problem Noted Date Diagnosed Date Resolved Date Lupus anticoagulant disorder 04/01/2023 documented as of this encounter (statuses as of 04/09/2023) [facility]2023 History of Past illness Narrative* Problem Noted Date Diagnosed Date Resolved Date Lupus anticoagulant disorder 04/01/2023 documented as of this encounter (statuses as of 04/09/2023) [facility]20[facility] History of Past illness Narrative* Problem Noted Date Diagnosed Date Resolved Date Lupus anticoagulant disorder 04/01/2023 documented as of this encounter (statuses as of 04/10/2023) [facility]20[facility] History of Past illness Narrative* Problem Noted Date Diagnosed Date Resolved Date Lupus anticoagulant disorder 04/01/2023 documented as of this encounter (statuses as of 04/10/2023) [address]10-2023 History of Past illness Narrative* Problem Noted Date Diagnosed Date Resolved Date Lupus anticoagulant disorder 04/01/2023 documented as of this encounter (statuses as of 04/12/2023) [facility]2023 History of Past illness Narrative* Problem Noted Date Diagnosed Date Resolved Date Lupus anticoagulant disorder 04/01/2023 documented as of this encounter (statuses as of 04/17/2023) [address]10-2023 History of Past illness Narrative* Problem Noted Date Diagnosed Date Resolved Date Lupus anticoagulant disorder 04/01/2023 documented as of this encounter (statuses as of 04/19/2023) [address]10-2023 History of Past illness Narrative* Problem Noted Date Diagnosed Date Resolved Date Lupus anticoagulant disorder 04/01/2023 documented as of this encounter (statuses as of 04/28/2023) [facility] History of Past illness Narrative* Problem Noted Date Diagnosed Date Resolved Date Lupus anticoagulant disorder 04/01/2023 documented as of this encounter (statuses as of 05/03/2023) [facility] History of Past illness Narrative* Problem Noted Date Diagnosed Date Resolved Date Lupus anticoagulant disorder 04/01/2023 documented as of this encounter (statuses as of 05/11/2023) [facility] History of Past illness Narrative* Problem Noted Date Diagnosed Date Resolved Date Lupus anticoagulant disorder 04/01/2023 documented as of this encounter (statuses as of 05/14/2023) [facility] History of Past illness Narrative* Problem Noted Date Diagnosed Date Resolved Date Lupus anticoagulant disorder 04/01/2023 documented as of this encounter (statuses as of 05/14/2023) [facility] History of Past illness Narrative* Problem Noted Date Diagnosed Date Resolved Date Lupus anticoagulant disorder 04/01/2023 documented as of this encounter (statuses as of 05/16/2023) [address]10-2023 History of Past illness Narrative* Problem Noted Date Diagnosed Date Resolved Date Lupus anticoagulant disorder 04/01/2023 documented as of this encounter (statuses as of 05/23/2023) [facility] History of Past illness Narrative* Problem Noted Date Diagnosed Date Resolved Date Lupus anticoagulant disorder 04/01/2023 documented as of this encounter (statuses as of 05/28/2023) [address]10-2023 History of Past illness Narrative* Problem Noted Date Diagnosed Date Resolved Date Lupus anticoagulant disorder 04/01/2023 documented as of this encounter (statuses as of 06/07/2023) [address]10-2023 History of Past illness Narrative* Problem Noted Date Diagnosed Date Resolved Date Lupus anticoagulant disorder 04/01/2023 documented as of this encounter (statuses as of 06/09/2023) [address]-2023 History of Past illness Narrative* Problem Noted Date Diagnosed Date Resolved Date Lupus anticoagulant disorder 04/01/2023 documented as of this encounter (statuses as of 06/10/2023) [address]-2023 History of Past illness Narrative* Problem Noted Date Diagnosed Date Resolved Date Lupus anticoagulant disorder 04/01/2023 documented as of this encounter (statuses as of 07/25/2023) [address]10-2023 History of Past illness Narrative* Problem Noted Date Diagnosed Date Resolved Date Lupus anticoagulant disorder 04/01/2023 documented as of this encounter (statuses as of 07/29/2023) [address]10-2023 History of Past illness Narrative* Problem Noted Date Diagnosed Date Resolved Date Lupus anticoagulant disorder 04/01/2023 documented as of this encounter (statuses as of 08/01/2023) [address]10-2023 History of Past illness Narrative* Problem Noted Date Diagnosed Date Resolved Date Lupus anticoagulant disorder 04/01/2023 documented as of this encounter (statuses as of 08/05/2023) [address]10-2023 History of Past illness Narrative* Problem Noted Date Diagnosed Date Resolved Date Lupus anticoagulant disorder 04/01/2023 documented as of this encounter (statuses as of 08/08/2023) [address]-2023 History of Past illness Narrative* Problem Noted Date Diagnosed Date Resolved Date Lupus anticoagulant disorder 04/01/2023 documented as of this encounter (statuses as of 08/10/2023) [address]-2023 History of Past illness Narrative* Problem Noted Date Diagnosed Date Resolved Date Lupus anticoagulant disorder 04/01/2023 documented as of this encounter (statuses as of 08/12/2023) [address]-2023 History of Past illness Narrative* Problem Noted Date Diagnosed Date Resolved Date Lupus anticoagulant disorder 04/01/2023 documented as of this encounter (statuses as of 08/13/2023) [facility]-25-2023 NoteHNO ID: [id number] Author: Marly Parr MD Service: ? Author Type: Physician Type: Progress Notes Filed: 03/17/2023 12:48 PM Note Text: INITIAL OB ASSESSMENT OB Provider: Marly Parr DO HPI: Betzy is a 32 year old White Female here to establish Obstetrical Care. Patient's last menstrual period was 11/25/2022 (exact date). from OB Dating Form. Cycles irregular was planned. Saw MARIKA and conceived using Letrozole. Complaints: None OB History T0 L0 SAB1 IAB0 Ectopic0 Multiple0 Live Births0 Previous history: Prior : never History of 4th degree laceration: No History of shoulder dystocia: No History of Hypertensive disorders including pre-eclampsia, chronic hypertension or gestational hypertension: No History of gestational diabetes: No Patient's Risk Screening for delivery: MEDICAL/PSYCHOSOCIAL HISTORY: History of hemorrhage or bleeding concerns: No Thyroid Disease: No History of chronic hypertension: No History of pre-existing diabetes: No No results found for: ABORHD BMI 41.13 kg/(m2) History of abnormal pap: No Prior treatment for cervical dysplasia: none. 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 I don't have enough money to pay my bills: Never Within the past 12 months, have you worried that your food would run out before you had money to buy more: Never In the past 12 months, has lack of reliable transportation kept you from going to medical appointments or work, or from keeping things needed for daily living: Never In the past 12 months, have you had any concerns about having a place to live, or about the condition or quality of your housing: Never Are there any cultural or spiritual needs we should be aware of: No Depression/Anxiety Screening: denies symptoms of depression. OB Depression and Anxiety Screening- This Encounter (since 03/16/2023) None Genetic Screening: Partner present: No Patient verbalized knowledge of partner family health history: No Do you or your partner have any personal or family history of defects not previously discussed: No Do you have history of a complicated by anomaly, genetic condition, or demise: Yes, IUFD ACOG Recommended Screening Screening for early gestational diabetes testing: Criteria for early testing requires elevated BMI plus one other risk factor: No weight on file for this encounter. (risk factor if > than 25 or 23 in Americans) Additional risk factors: Other clinical conditions associated with insulin resistance (eg, prepregnancy body mass index greater than 40 kg/m2, acanthosis nigricans) She does meet ACOG criteria for early gestational DM screening. 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 enoxaparin (LOVEN (more content not included)...[facility] 03-17-2023 History of Present illness Narrative* Marly Parr MD - 03/17/2023 11:14 AM EDT INITIAL OB ASSESSMENT OB Provider: Marly Parr DO HPI: Betzy is a 32 year old White Female here to establish Obstetrical Care. Patient's last menstrual period was 11/25/2022 (exact date). from OB Dating Form. Cycles irregular was planned. Saw MARIKA and conceived using Letrozole. Complaints: None OB History T0 L0 SAB1 IAB0 Ectopic0 Multiple0 Live Births0 Previous history: Prior : never History of 4th degree laceration: No History of shoulder dystocia: No History of Hypertensive disorders including pre-eclampsia, chronic hypertension or gestational hypertension: No History of gestational diabetes: No Patient's Risk Screening for delivery: MEDICAL/PSYCHOSOCIAL HISTORY: History of hemorrhage or bleeding concerns: No Thyroid Disease: No History of chronic hypertension: No History of pre-existing diabetes: No No results found for: ABORHD BMI 41.13 kg/(m^2) History of abnormal pap: No Prior treatment for cervical dysplasia: none. 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 I don't have enough money to pay my bills: Never Within the past 12 months, have you worried that your food would run out before you had money to buy more: Never In the past 12 months, has lack of reliable transportation kept you from going to medical appointments or work, or from keeping things needed for daily living: Never In the past 12 months, have you had any concerns about having a place to live, or about the condition or quality of your housing: Never Are there any cultural or spiritual needs we should be aware of: No Depression/Anxiety Screening: denies symptoms of depression. OB Depression and Anxiety Screening- This Encounter (since 03/16/2023) None Genetic Screening: Partner present: No Patient verbalized knowledge of partner family health history: No Do you or your partner have any personal or family history of defects not previously discussed: No Do you have history of a complicated by anomaly, genetic condition, or demise: Yes, IUFD ACOG Recommended Screening Screening for early gestational diabetes testing: Criteria for early testing requires elevated BMI plus one other risk factor: No weight on file for this encounter. (risk factor if > than 25 or 23 in Americans) Additional risk factors: Other clinical conditions associated with insulin resistance (eg, prepregnancy body mass index greater than 40 kg/m2, acanthosis nigricans) She does meet ACOG criteria for early gestational DM screening. 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 enoxaparin (LOVENOX) 40 mg/0.4 mL no.82/iron/folate no2 (TL FOLATE ORAL) Take by mouth. metformin HCl (GLUCOPHAGE ORAL) Take 500 mg by mouth four times daily. VITAMIN D-3 50 mcg (2,000 unit) tablet Take 1 tablet by mouth once daily. progesterone micronized (PROMETRIUM) 200 mg capsule Take 1 capsule by mouth daily at bedtime. On cycle days 14 27 25/iron fum/folic/dha (-1 ORAL) Take 1 tablet by mouth. aspirin 81 mg chewable tablet Take 81 mg by mouth. metFORMIN ER (GLUCOPHAGE XR) 500 mg 24 hr tablet Take 4 tablets by mouth once daily. letrozole (FEMARA) 2.5 mg tablet Take 7.504 mg by mouth once daily. Take cycle day 3-7 (Patient nottaking: Reported on 03/05/2023) No current facility-administered medications for this visit. Allergies As of Date: 03/17/2023 (No Known Allergies) Fully Assessed 03/17/2023 Does patient have penicillin allergy: No REVIEW OF SYSTEMS: GENERAL: Negative for: Fever or Chills HEENT: Negative for: Headache, Impaired Vision, Ringing in Ears, Nosebleeds NECK: Negative for: Swelling, Pain, Stiffness RESPIRATORY: Negative for: Cough, Shortness of breath, Wheezing GASTROINTESTINAL: Negative for: Heartburn, Constipation, Diarrhea, Blood in stool, Vomiting MUSCULOSKELETAL: Negative for: Muscle or joint pain, stiffness, Joint swelling NEUROLOGIC/PSYCHIATRIC: Negative for: Weakness, Paralysis, Numbness, Tingling, Tremor, Anxiety, Depression, Memory loss SKIN: Negative for: Rash, Itching GENITOURINARY: Negative for: vaginal itching, vaginal discharge, hematuria or dysuria PHYSICAL EXAM: BP 120/90 Ht 5' 7 (1.70m) Wt 262 lb 9.6 oz (119.1kg) LMP 11/25/2022 BMI 41.12 kg/(m^2). GENERAL: pleasant in no apparent distress DERMATOLOGY: Normal and without lesions NECK: full range of motion CHEST: Normal inspiratory effort BREAST: deferred ABDOMEN: soft, non-tender, and no masses NEURO: exam grossly non-focal PELVIS: deferred Limited OB ultrasound exam: single live IUP with +gross FM noted and +FHT OB Risk Screening: Completed, positive findings include: Patient answered 'Yes' they had a prior rojas between 20w and 36w6d. ASSESSMENT: 32 year old at 16w0d wks gestational age PLAN: 1) Patient oriented to practice. Patient given new OB orientation folder. Discussed nutrition, folic acid supplementation, dietary guidelines, exercise, smoking, alcohol, caffeine, and drug use. Discussed gestational weight gain guidelines. Discussed routine OB labs including STD/HIV. Patient states she had aneuploidy screening. Flu vaccine today. Med list reviewed. Discussed high risk and questions answered. To see MFM at time of anatomy US. Follow up in 2 weeks or sooner prn. Marly Parr DO documented [facility] this [facility] Instructions* Patient Instructions* Elizabeth Pina MA - 03/17/2023 11:14 AM EDT Please select the following link to access the [facility] Your Guide to a Healthy . [email or web address] documented in this encounterKind[facility]09-13-2023 NoteHNO ID: [id number] Author: Anahi Castorena RN Service: ? Author Type: ? Type: Progress Notes Filed: 03/05/2023 5:03 PM Note Text: INITIAL OB ASSESSMENT OB Provider: Anahi Castorena RN HPI: Betzy is a 32 year old White Female here to establish Obstetrical Care. Patient's last menstrual period was 11/25/2022 (exact date). from OB Dating Form. Cycles regular was planned and a result of fertility treatments Clomid/Letrizole Complaints: None OB History T0 L0 SAB1 IAB0 Ectopic0 Multiple0 Live Births0 # 1 - Date: 10/24/17, Sex: Female, Weight: None, GA: 24w6d, Delivery: Vaginal, Spontaneous, Apgar1: None, Apgar5: None, Living: Demise, Comments: Induced due to IUFD, maternal fever-Pt told baby stopped growing at 20w4d # 2 - Date: 12/09/18, Sex: None, Weight: None, GA: 9w0d, Delivery: MISSED AB, Apgar1: None, Apgar5: None, Living: None, Comments: DANNC # 3 - Date: 05/31/21, Sex: None, Weight: None, GA: 8w0d, Delivery: MISSED AB, Apgar1: None, Apgar5: None, Living: None, Comments: Incomplete miscarriage-RPOC DANNC # 4 - Date: None, Sex: None, Weight: None, GA: None, Delivery: None, Apgar1: None, Apgar5: None, Living: None, Comments: None Previous history: Prior : never History of 4th degree laceration: No History of shoulder dystocia: No History of Hypertensive disorders including pre-eclampsia, chronic hypertension or gestational hypertension: No History of gestational diabetes: No Patient's Risk Screening for delivery: Have you had a prior rojas between 20w and 36w6d?: (!) Yes Did you present in active spontaneous labor or have ruptured membranes, or advanced cervical dilation (greater than or equal to 4 cm) or effacement?: No (IUFD) MEDICAL/PSYCHOSOCIAL HISTORY: History of hemorrhage or bleeding concerns: Pt on Lovenox due to recurrent loss Thyroid Disease: No History of chronic hypertension: No History of pre-existing diabetes: No No results found for: ABORHD No weight on file for this encounter. History of abnormal pap: No Prior treatment for cervical dysplasia: none. History of STDs: chlamydia Tobacco use: Yes Caffeine use: Yes 2 Mountain Dews a day Drug use: No Alcohol use: No Multivitamin with Folic acid: Yes Hindu or heritage: No Would refuse blood transfusion if medically necessary: No Are you currently employed? 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 I don't have enough money to pay my bills: Never Within the past 12 months, have you worried that your food would run out before you had money to buy more: Never In the past 12 months, has lack of reliable transportation kept you from going to medical appointments or work, or from keeping things needed for daily living: Never In the past 12 months, have you had any concerns about having a place to live, or about the condition or quality of your housing: Never Are there any cultural or spiritual needs we should be aware of: No Depression/Anxiety Screening: denies symptoms of depression. OB Depression and Anxiety Screening- This Encounter (since 03/04/2023) None Genetic Screening: Partner present: No Patient verbalized knowledge of partner family health history: No Do you or your partner have any personal or family history of defects not previously discussed: No Do you have history of a complicated by anomaly, genetic condition, or demise: Yes, IUFD ACOG Recommended Screening Screening for early gestational diabetes testing: Criteria for early testing requires elevated BMI plus one other risk factor: No weight on file for this encounter. (risk factor if > than 25 or 23 in Americans) Additional risk factors: Other clinical conditions associated with insulin resistance (eg, prepregnancy body mass index greater than 40 kg/m2, acanthosis nigricans) She does meet ACOG criteria for early gestational DM screening. 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 Patient verbalizes understanding. Clara Tipton RN * Telephone Encounter - Kati Mota LPN - 07/02/2022 8:14 AM EST Message left for patient to call back for update. Kati Mota LPN * Telephone Encounter - Kailee Medellin APRN.CNP - 07/02/2022 7:36 AM EST Please call patient and let her know cholesterol in good range. Blood sugar mildly elevated at 112.The rest of her blood work was normal. Kailee Medellin APRN.YOUSUF documented in this encounterKind[facility]01-04-2023 History of Present illness Narrative* Kailee Medellin APRN.CNP - 06/26/2022 4:53 PM EST 06/26/2022 Patient presents with: Physical SUBJECTIVE: This is a 31 year old that is here today for Above Complaints. Since last office vist had a D&C for miscarriage last May, otherwise has been in good health. No concerns today. Has upcoming appointment this month with new LITIGATION SUPPORT ANALYST. Medical hx and medications reviewed. PAST MEDICAL HISTORY Diagnosis Date Chlamydia 2010, 2011 x2, treated successfully demise, greater than 22 weeks, antepartum 10/2017 HPV in female Lupus anticoagulant disorder (HCC) MTHFR gene mutation 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 Salamanca Obesity (BMI 35.0-39.9 without comorbidity) PCOS (polycystic ovarian syndrome) Tobacco use ALLERGIES Patient has no known allergies. MEDICATIONS Current Outpatient Medications Medication Sig VITAMIN D-3 50 mcg (2,000 unit) tablet Take 1 tablet by mouth once daily. metFORMIN ER (GLUCOPHAGE XR) 500 mg 24 hr tablet Take 4 tablets by mouth once daily. progesterone micronized (PROMETRIUM) 200 mg capsule Take 1 capsule by mouth daily at bedtime. On cycle days 14 27 letrozole (FEMARA) 2.5 mg tablet Take 7.504 mg by mouth once daily. Take cycle day 3-7 25/iron fum/folic/dha (-1 ORAL) Take 1 tablet by mouth. aspirin 81 mg chewable tablet Take 81 mg by mouth. cyanocobalamin/folic ac/vit B6 (FABB ORAL) Take 1 capsule by mouth once daily. (Patient not taking:Reported on 03/21/2021 ) metformin HCl (METFORMIN ORAL) Take by mouth. Takes 1500 mg for pcos (Patient not taking: Reported on 03/21/2021 ) nicotine (NICODERM) 14 mg/24 hr Apply 1 Patch as directed every 24 hours. No smoking with patch. (Patient not taking: Reported on 03/21/2021 ) nicotine (NICODERM) 7 mg/24 hr Apply 1 Patch as directed every 24 hours. (Patient not taking: Reported on 02/02/2020 ) Cholecalciferol, Vitamin D3, 5,000 unit cap Take 5,000 Units by mouth. (Patient not taking: Reported on 03/21/2021 ) vit B12/folic/B6 phos/B6/betn (COBALAMINE COMBINATIONS ORAL) Take 800 mcg by mouth. (Patient not taking: Reported on 10/11/2020 ) No current facility-administered medications for this visit. Medications and allergies reviewed by this provider. SOCIAL HISTORY Social History Tobacco Use Smoking status: Every Day Packs/day: 0.50 Years: 10.00 Pack years: 5.00 Types: Cigarettes Last attempt to quit: 02/28/2019 Years since quittin.3 Smokeless tobacco: Never Substance Use Topics Alcohol use: No Drug use: No REVIEW OF SYSTEMS GENERAL: No malaise or fevers.Recent weight loss due to GI bug HEENT: Negative for frequent or significant headaches, No changes in hearing or vision, no nose bleeds or other nasal problems NECK: Negative for lumps, goiter, pain and significant neck swelling RESPIRATORY: Negative for cough, hemoptysis, wheezing, COPD, dyspnea or shortness of breath CARDIOVASCULAR: Negative for chest pain, leg swelling, hypertension, CHF or palpitations GI: No nausea, vomiting, or diarrhea : No history of dysuria, frequency or incontinence LITIGATION SUPPORT ANALYST: Negative for abnormal vaginal bleeding, abnormal vaginal discharge MUSCULOSKELETAL: Negative for joint pain or swelling, back pain or muscle pain SKIN: Negative for lesions, rash, and itching PSYCH: Negative for sleep disturbance, mood disorder and recent psychosocial stressors HEMATOLOGY/LYMPHOLOGY: Negative for prolonged bleeding, bruising easily or swollen nodes ENDOCRINE: Negative for cold or heat intolerance, polyuria, polydipsia and goiter NEURO: No history of headaches, syncope, paralysis, seizures or tremors All other reviewed and negative other than HPI. OBJECTIVE: BP 122/84 Pulse 71 Resp 18 Ht 167.2 cm (5' 5.83 ) Wt 114.5 kg (252 lb 6.4 oz) SpO2 99% BMI 40.95 kg/m . Vital signs reviewed by this provider. APPEARANCE Well appearing, alert, in no acute distress, well-hydrated, well nourished. and Obese EYES PERRLA, conjunctiva and sclera normal. EARS External ears normal, canals clear NECK Supple, no adenopathy; thyroid symmetric, normal size, no bruits HEART RRR with normal S1 and S2, no murmurs, no gallops, no JVD appreciated LUNG clear to auscultation. No wheezes, rhonchi or rales ABDOMEN no tenderness to palpation EXTREMITIES Extremities normal, No deformities, No skin discoloration, and No edema SKIN Skin color, texture, turgor normal, no suspicious rashes or lesions to exposed skin HEPATITIS B(1 of 3 - 3-dose series) Never done HEPATITIS C SCREENING Never done HIV SCREENING Never done PAP TESTING due on 02/12/2019 INFLUENZA(1) due on 02/21/2022 DEPRESSION ASSESSMENT Never done COVID-19 VACCINE(3 - Booster for Pfizer series) due on 06/26/2023 DTAP,TDAP,TD(2 - Td or Tdap) due on 06/12/2028 ASSESSMENT/PLAN: 1. Annual physical exam - ICD9: V70.0, ICD10: Z00.00 (primary diagnosis) - Counseled on healthy diet and regular exercise - Calcium intake with supplements or by diet of 1000 mg/day for under 50, 1200- 1500 mg/day for 50+ - Discussed need and benefit for weight loss. BMI 40.95 kg/(m^2) - Smoking cessation encouraged; discussed risks to health and quitting strategies. Patient is not ready to quit - Depression screening tool completed and reviewed with patient. Based on score and interview, patient is not at risk for depression and recommended no further intervention at this time. - COMP METABOLIC PANEL - Follow up for annual exam in one year 2. Encounter for immunization - ICD9: V03.89, ICD10: Z23 - INFLUENZA VACCINE QUADRIVALENT 6 MO - 64 YRS IM 3. Screening for cholesterol level - ICD9: V77.91, ICD10: Z13.220 - LIPID PANEL BASIC 4. PCOS (polycystic ovarian syndrome) - ICD9: 256.4, ICD10: E28.2 - follow-up with LITIGATION SUPPORT ANALYST as scheduled Kailee Medellin APRN.OYUSUF documented in this encounterKind[facility]07-11-2022 Miscellaneous Notes* Telephone Encounter - Kati Mota LPN - 12/31/2021 3:55 PM EDT Faxed request of signed physician prescription for pap devices and supplies received from [facility] [employer] out of [place]. Requesting providers signature, office visit, and patient demographics. All requested paperwork faxed to [phone]. Kati Mota LPN documented in this encounterKind[facility]06-01-2022 Miscellaneous Notes* Telephone Encounter - Qi Aguilar RN - 11/21/2021 4:06 PM EDT Patient calling and asking for recent auto pap orders and sleep study be faxed to [facility] in [place]. Faxed as requested to [phone]. Qi Aguilar RN documented in this encounterKind[facility]05-04-2022 Miscellaneous Notes* Telephone Encounter - Vida Engel LPN - 10/24/2021 4:51 PM EDT Spoke with pt and information listed below given. Pt verbalizes understanding. Pt will check with her insurance on [employer] and call back. Vida Engel LPN * Telephone Encounter - Raya Wilson Ma - 10/24/2021 3:00 PM EDT Left message for patient to call office back Raya Wilson Ma * Telephone Encounter - Kailee Medellin APRN.CNP - 10/24/2021 2:49 PM EDT Please call patient and let her know her sleep study is recommending auto pap. If agreeable to treatment will need the name of medical supply company to send it to. Kailee Medellin APRN.CNP documented in this encounterKindred [facility]04-29-2022 History of Present illness Narrative* Eugenia Hastingsmishahida Poly-T - 10/19/2021 3:44 AM EDT Sleep Study Check-In Documentation Date: October 19, 2021 Name: Betzy Delgado Patient was accompanied by Self. Location: [place] Latex allergy: No Tape allergy: No Current medications were reviewed with the patient:Yes Sleep aid taken by patient for the sleep study: Baring of sleep aid: Not Applicable Procedure was explained to the patient and all questions were answered. PAP treatment discussed and shown to patient: Yes If PAP used enter mask info: Mask Name Airfit n20 Make Resmed MaskTypeNasal Mask SizeSmall Chin Sharp Used No Knowledge Program (KP): KP was not completed in epic by patient and accepted Study type: PAP titration Adverse Event: No (If yes create a new abstract) SERS Event: No Comments: Patient was advised to follow up with their ordering provider regarding test results Eugenia Corcoranummie Poly-T * Paul Lubin III, PhD - 10/18/2021 9:02 AM EDT October 18, 2021 Standing PSG Orders signed in the last 90 days None Future PSG Orders signed in the last 90 days Ordered Auth. provider PAP TITRATION PSG (CPAP, BIPAP, ASV) [[id number]] 10/01/21 Kailee Medellin APRN.FAMILY EDUCATOR Assoc. diagnoses: PEBBLES (obstructive sleep apnea) [G47.33] Q: Indications: A: Obstructive sleep apnea Q: STOP-BANG conditions - Select All That Apply: A: BMI > 35 kg/m2 Q: Special Needs (e.g.behavior, non-ambulatory, >450 lbs)?: A: No Q: Prior PAP (CPAP or Bilevel PAP) Use?: A: Unknown Q: Sleep History: A: Sleep apnea Q: Current use of supplemental oxygen during sleep period?: A: No Q: Add supplemental oxygen if needed per sleep lab policy?: A: Yes All Prior Sleep Studies (past 365 days) Some values may be hidden. Unless noted otherwise, only the newest values recorded on each date aredisplayed. Sleep Studies HOME SLEEP APNEA TEST (HSAT) Date: 09/12/21 PAP TITRATION PSG (CPAP, BIPAP, ASV) Future Expected: Expires: 10/31/22 BMI Readings from Last 2 Encounters: 03/21/21 : 44.26 kg/m 02/26/21 : 43.93 kg/m PAST MEDICAL HISTORY Diagnosis Date Chlamydia 2011 x2, treated successfully demise, greater than 22 weeks, antepartum 10/2017 HPV in female Lupus anticoagulant disorder (HCC) MTHFR gene mutation 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 Salamanca Obesity (BMI 35.0-39.9 without comorbidity) PCOS (polycystic ovarian syndrome) Tobacco use The medical record was reviewed to determine if the proposed sleep study conforms to the AASM Practice Parameters for the Indications for Polysomnography and Related Procedures, or if the sleep studyis indicated for other reasons. Indications for study: PEBBLES previously diagnosed: Evaluate response to PAP therapy Sleep study to be performed: PAP titration study Special instructions: Start titration at PAP setting of 5 cmH2O Target REM/supine sleep [facility] Sleep [facility] Staff Note: I have read the above protocol, edited as needed, and agree to the plan. Paul Lubin III, PhD 10:55 AM, 10/18/2021 documented in this encounterKindred [facility]04-11-2022 Miscellaneous Notes* Telephone Encounter - Amirah Nair LPN - 10/01/2021 10:36 AM EDT Patient returned call and went over results, notes from Kailee Medellin PROGRAM MANAGEMENT INTERN with understanding. Assisted with transfer to cloth doffer to get pap titration study appt set up. * Telephone Encounter - Kati Mota LPN - 10/01/2021 9:20 AM EDT Patient telephoned, message left to call back for update. Kati Mota LPN * Telephone Encounter - Kailee Medellin APRN.CNP - 10/01/2021 7:52 AM EDT Please call patient and let her know her home sleep study confirms a diagnosis of sleep apnea. Recommend pap titration. I have placed order- she may call and schedule at her convenience. Thanks, Kailee Medellin APRN.CNP documented in this encounterKind[facility]03-25-2022 History of Present illness Narrative* Art Samuels - 09/14/2021 11:50 AM EDT Sleep Study Check-In Documentation Date: September 14, 2021 Name: Betzy Delgado Comments: HST was returned in working order with all sleep questionnaires Art Samuels * Art Samuels - 09/11/2021 9:13 AM EDT [facility]#[id number] Mail out date:09/11/21 [employer] Shipping #:[id number] [employer] Return #: [id number] * Paul Lubin III, PhD - 08/17/2021 2:16 PM EST August 17, 2021 Standing PSG Orders signed in the last 90 days None Future PSG Orders signed in the last 90 days Ordered Auth. provider HOME SLEEP APNEA TEST (HSAT) [[id number]] 08/15/21 Kailee Medellin APRN.FAMILY EDUCATOR Assoc. diagnoses: Loud snoring [R06.83] Q: Indications: A: Obstructive sleep apnea Q: STOP-BANG conditions - Select All That Apply: A: BMI > 35 kg/m2 A2: SNORING that is loud or disruptive A3: NECK circumference (male >43 cm/17 in; female > 41 cm/16 in) Q: Current use of supplemental oxygen during sleep period?: A: No All Prior Sleep Studies (past 365 days) Some values may be hidden. Unless noted otherwise, only the newest values recorded on each date aredisplayed. Sleep Studies HOME SLEEP APNEA TEST (HSAT) Future Expected: Expires: 08/15/22 BMI Readings from Last 2 Encounters: 03/21/21 : 44.26 kg/m 02/26/21 : 43.93 kg/m PAST MEDICAL HISTORY Diagnosis Date Chlamydia 2011 x2, treated successfully demise, greater than 22 weeks, antepartum 10/2017 HPV in female Lupus anticoagulant disorder (HCC) MTHFR gene mutation 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 Salamanca Obesity (BMI 35.0-39.9 without comorbidity) PCOS (polycystic ovarian syndrome) Tobacco use The medical record was reviewed to determine if the proposed sleep study conforms to the AASM Practice Parameters for the Indications for Polysomnography and Related Procedures, or if the sleep studyis indicated for other reasons. Indications for study: PEBBLES suspected with comorbid medical or sleep disorders: Morbid obesity (BMI>40 kg/m2) Sleep study to be performed: Home Sleep Apnea Test (HSAT) Special instructions: None-follow laboratory protocol [facility] Staff Note: I have read the above protocol, edited as needed, and agree to the plan. Paul Lubin III, PhD 10:57 AM, 08/20/2021 * Art Samuels - 08/17/2021 10:43 AM EST August 17, 2021 An order has been received for Home Sleep Apnea Test (HSAT) from Dr. Kailee Medellin, DRAWING IN HAND.damion TO. [facility] Staff. Visit prep complete. Comments :No The sleep study is scheduled for 09/12. Insurance: Payor: [employer] / Plan: BLUE CARD PPO OOS / Product Type: PPO / Payor/Plan Subscr Sex Relation Sub. Ins. ID Effective Group Num 1. [employer] - SUZAN* DELGADOBETZY 1990 Female Self [id number] [birth year] [id number] [id number] Art Samuels documented in this encounter[facility]* Diagnosis PEBBLES (obstructive sleep apnea)- Primary Obstructive sleep apnea (adult) (pediatric) [facility]* Diagnosis Annual physical exam- Primary Routine general medical examination at a health care facility Encounter for immunization Need for other specified prophylactic vaccination against single bacterial disease Screening for cholesterol level Screening for lipoid disorders PCOS (polycystic ovarian syndrome) Polycystic ovaries documented [facility] encounter [facility]* Diagnosis Encounter for supervision of other normal in second trimester- Primary 16 weeks gestation of state, incidental History of IUFD with care elsewhere in second trimester History of loss in prior , currently in second trimester Class 3 severe obesity with body mass index (BMI) of 40.0 to 44.9 in adult, unspecified obesity type, unspecified whether serious comorbidity present (HCC) Supervision of high risk in second trimester Unspecified high-risk Need for influenza vaccination Need for prophylactic vaccination and inoculation against influenza Lupus anticoagulant disorder (HCC) Primary hypercoagulable state documented [facility] encounter [facility]* Diagnosis H/O intrauterine , currently - Primary with other poor reproductive history Supervision of high risk in second trimester Unspecified high-risk 18 weeks gestation of state, incidental [facility]* Diagnosis Encounter for supervision of other normal in second trimester documented [facility] this [facility]* Diagnosis Gestational diabetes mellitus (GDM) in second trimester, gestational diabetes method of control unspecified- Primary Diet controlled gestational diabetes mellitus (GDM) in third trimester- Primary [facility]* Diagnosis Diet controlled gestational diabetes mellitus (GDM) in third trimester- Primary Insulin controlled gestational diabetes mellitus (GDM) in third trimester [facility]* Diagnosis Supervision of high risk in second trimester- Primary Unspecified high-risk H/O intrauterine , currently with other poor reproductive history Insulin controlled gestational diabetes mellitus (GDM) in second trimester 24 weeks gestation of state, incidental [facility]* Diagnosis 18 weeks gestation of state, incidental H/O intrauterine , currently with other poor reproductive history GDM, class A2 Abnormal maternal glucose tolerance, complicating , childbirth, or the puerperium, unspecified as to episode of care documented in this [facility]* Diagnosis Insulin controlled gestational diabetes mellitus in third trimester- Primary [facility]* Diagnosis Dietary counseling- Primary Dietary surveillance and counseling Gestational diabetes mellitus (GDM) in second trimester, gestational diabetes method of control unspecified documented in this encounter [facility] note* Diagnosis Diabetes mellitus type 1, controlled, without complications (HCC)- Primary Type I (juvenile type) diabetes mellitus without mention of complication, not stated as uncontrolled documented [facility]* Diagnosis Diabetes mellitus type 1, controlled, without complications (HCC) Type I (juvenile type) diabetes mellitus without mention of complication, not stated as uncontrolled [facility]* Diagnosis Insulin controlled gestational diabetes mellitus (GDM) in second trimester- Primary Obesity (BMI 35.0-39.9 without comorbidity) Obesity, unspecified documented [facility] encounter [facility]* Diagnosis H/O intrauterine , currently - Primary with other poor reproductive history Obesity affecting in second trimester, unspecified obesity type 35 weeks gestation of state, incidental documented in this encounter [facility]* Diagnosis 35 weeks gestation of - Primary state, incidental Obesity affecting in second trimester, unspecified obesity type H/O intrauterine , currently with other poor reproductive history [facility] Diagnosis 36 weeks gestation of - Primary state, incidental documented in this encounter [facility]* Diagnosis 36 weeks gestation of - Primary state, incidental Obesity (BMI 35.0-39.9 without comorbidity) Obesity, unspecified [facility] Diagnosis H/O intrauterine , currently - Primary with other poor reproductive history 37 weeks gestation of state, incidental Obesity affecting in second trimester, unspecified obesity type Gestational diabetes mellitus (GDM) requiring insulin [facility] Diagnosis H/O intrauterine , currently with other poor reproductive history documented in this encounter [facility] for referral (narrative)* Diagnostic Procedure Only (Routine) - Authorized Specialty Diagnoses / Procedures Referred By Contac t Referred To Contact [facility] Diagnoses 18 weeks gestation of H/O intrauterine , currently Procedures OBSTETRIC ULTRASOUND WHI US PREG UTERUS AFTER 1ST TRIMEST GESTATION Neo Melendez MD [address] [place] [address] [facility] [address] [place] [id number] Referral ID Status Reason Start Date Expiration Date Visits Requested Visits Authorized [id number] Authorized Auto-Generat ed Referral 10/1003/31/2024 1 1 [facility] for visit Narrative* Diagnostic Procedure Only (Routine) - Closed Specialty Diagnoses / Procedures Referred By Unrulyac t Referred To [facility] Diagnoses Encounter for supervision of other normal in second trimester Procedures OBSTETRIC ULTRASOUND WHI US PREG UTERUS AFTER 1ST TRIMEST GESTATION Marly Parr MD [address] [place] [address] [facility] [employer] [place] [id number] Referral ID Status Reason Start Date Expiration Date V isits Requested Visits Authorized [id number] Closed Auto-Generate d Referral 03/17/2023 03/16/2024 1 1 [facility] for visit Narrative* Diagnostic Procedure Only (Routine) - Closed Specialty Diagnoses / Procedures Referred By Elizabeth t Referred To [facility] Diagnoses 18 weeks gestation of H/O intrauterine , currently Procedures OBSTETRIC ULTRASOUND WHI US PREG UTERUS AFTER 1ST TRIMEST GESTATION Neo Melendez MD [address] [place] [address] [facility] [place] [address] Referral ID Status Reason Start Date Expiration Date V isits Requested Visits Authorized [id number] Closed Auto-Generate d Referral 04/01/2023 03/31/2024 1 1 [facility] for visit Narrative* Diagnostic Procedure Only (Routine) - Closed Specialty Diagnoses / Procedures Referred By Elizabeth t Referred To [facility] Diagnoses 28 weeks gestation of Diabetes mellitus type 1, controlled, without complications (HCC) H/O intrauterine , currently Procedures OBSTETRIC ULTRASOUND WHI US PREG UTERUS AFTER 1ST TRIMEST GESTATION Neo Melendez MD [address] [place] [address] [facility] [place] [address] Referral ID Status Reason Start Date Expiration Date V isits Requested Visits Authorized [id number] Closed Auto-Generate d Referral 06/10/2023 06/09/2024 10 1 [facility] Summary Purpose Family History No Family History Records FoundNo Family History Records FoundNo Family History Records FoundNo Family History Records FoundNo Family History Records FoundNo Family History Records FoundNo Family History Records FoundNo Family History Records FoundNo Family History Records FoundNo Family History Records Found Advance Directives No Advanced Directives Records FoundNo Advanced Directives Records FoundNo Advanced Directives Records FoundNo Advanced Directives Records FoundNo Advanced Directives Records FoundNo Advanced Directives Records FoundNo Advanced Directives Records FoundNo Advanced Directives Records FoundNo Advanced Directives Records FoundNo Advanced Directives Records Found Reason for Referral Specialty Diagnoses / Procedures Referred By Elizabeth pham Referred To Contact Diagnoses 16 weeks gestation of History of IUFD History of loss in prior , currently in second trimester Class 3 severe obesity with body mass index (BMI) of 40.0 to 44.9 in adult, unspecified obesity type, unspecified whether serious comorbidity present (HCC) Supervision of high risk in second trimester Procedures CONSULT TO MATERNAL MEDI OFFICE/OUTPATIENT [facility] 60-74 MINUTES Marly Parr MD [address] [place] [address] Referral ID Status Reason Start Date Expiration Date Visits Requested Visits Authorized [id number] Authorized PCP Requested Referral Auto-Generate d Referral 03/17/2023 03/16/2024 1 1 Specialty Diagnoses / Procedures Referred By Elizabeth pham Referred To Contact [facility] Diagnoses Encounter for supervision of other normal in second trimester Procedures OBSTETRIC ULTRASOUND WHI US PREG UTERUS AFTER 1ST TRIMEST GESTATION Marly Parr MD [address] [place] [address] [facility] [address] [place] [address] Referral ID Status Reason Start Date Expiration Date Visits Requested Visits Authorized [id number] Authorized Auto-Generat ed Referral 03/17/2023 03/16/2024 1 1 Specialty Diagnoses / Procedures Referred By Elizabeth pham Referred To Contact Nutrition Diagnoses Gestational diabetes mellitus (GDM) in second trimester, gestational diabetes method of control unspecified Procedures CONSULT TO NUTRITION THERAPY MEDICAL NUTRITION ASSMT&IVNTJ INDIV EACH 15 DE MEDICAL NUTRITION ASSMT&IVNTJ INDIV EACH 15 DE MEDICAL NUTRITION ASSMT&IVNTJ INDIV EACH 15 DE MEDICAL NUTRITION ASSMT&IVNTJ INDIV EACH 15 DE Neo Melendez MD [address] [place] [address] Referral ID Status Reason Start Date Expiration Date Visits Requested Visits Authorized [id number] Authorized PCP Requested Referral 3 04/07/2024 1 1 Specialty Diagnoses / Procedures Referred By Contac t Referred To Contact Endocrinology Diagnoses Gestational diabetes mellitus (GDM) in second trimester, gestational diabetes method of control unspecified Procedures CONSULT TO ENDOCRINOLOGY OFFICE/OUTPATIENT [facility] 60-74 MINUTES Neo Melendez MD [address] [place] [address] Referral ID Status Reason Start Date Expiration Date Visits Requested Visits Authorized [id number] Authorized PCP Requested Referral 3 04/07/2024 1 1 Health Concerns Problem Noted Date Diagnosed Date [facility] - [facility] 03/17/2023 [facility] - [place] 03/17/2023 Problem Noted Date Diagnosed Date [facility] - [facility] 03/17/2023 [place] - [place] 03/17/2023 Problem Noted Date Diagnosed Date [facility] - [facility] 03/17/2023 Education - [place] 03/17/2023 Problem Noted Date Diagnosed Date [facility] - [facility] 03/17/2023 Education - [place] 03/17/2023 Problem Noted Date Diagnosed Date [facility] - [facility] 03/17/2023 Education - [place] 03/17/2023 Problem Noted Date Diagnosed Date [facility] - [facility] 03/17/2023 Education - [place] 03/17/2023 Problem Noted Date Diagnosed Date [facility] - [facility] 03/17/2023 Education - [place] 03/17/2023 Problem Noted Date Diagnosed Date [facility] - [facility] 03/17/2023 Education - [place] 03/17/2023 Problem Noted Date Diagnosed Date [facility] - [facility] 03/17/2023 Education - [place] 03/17/2023 Problem Noted Date Diagnosed Date [facility] - [facility] 03/17/2023 Education - [place] 03/17/2023 Problem Noted Date Diagnosed Date [facility] - [facility] 03/17/2023 Education - [place] 03/17/2023 Problem Noted Date Diagnosed Date [facility] - [facility] 03/17/2023 Education - [place] 03/17/2023 Problem Noted Date Diagnosed Date [facility] - [facility] 03/17/2023 Education - [place] 03/17/2023 Problem Noted Date Diagnosed Date [facility] - [facility] 03/17/2023 Education - [place] 03/17/2023 Problem Noted Date Diagnosed Date [facility] - [facility] 03/17/2023 Education - [place] 03/17/2023 Problem Noted Date Diagnosed Date [facility] - [facility] 03/17/2023 Education - [place] 03/17/2023 Problem Noted Date Diagnosed Date [facility] - [facility] 03/17/2023 Education - [place] 03/17/2023 Problem Noted Date Diagnosed Date [facility] - [facility] 03/17/2023 [place] - [place] 03/17/2023 Additional Source Comments INFORMATION SOURCE (unrecogn ized section and content) DATE CREATED AUTHOR AUTHOR'S ORGANIZ ATION 12/16/2017 [facility] DATE CREATED AUTHOR AUTHOR'S ORGANIZ ATION 09/18/2018 [facility] DATE CREATED AUTHOR AUTHOR'S ORGANIZ ATION 01/26/2019 [employer] DATE CREATED AUTHOR AUTHOR'S ORGANIZ ATION 07/13/2019 [facility] DATE CREATED AUTHOR AUTHOR'S ORGANIZ ATION 09/24/2019 [facility] DATE CREATED AUTHOR AUTHOR'S ORGANIZ ATION 01/14/2020 [facility] DATE CREATED AUTHOR AUTHOR'S ORGANIZ ATION 02/03/2020 [facility] DATE CREATED AUTHOR AUTHOR'S ORGANIZ ATION 05/05/2023 [facility] DATE CREATED AUTHOR AUTHOR'S ORGANIZ ATION 08/13/2023 [facility] Source Comments (unrecognize d section and content) In the event this informatio n is protected by the Federal Confidentiality of Alcohol and Drug Abuse Patient Records regulations: The Federal rules restrict any use of the information to criminally investigate or prosecute any alcohol or drug abuse patient.[facility] the event this information is protected by the Federal Confidentiality of Alcohol and Drug Abuse Patient Records regulations: The Federal rules restrict any use of the information to criminally investigate or prosecute any alcohol or drug abuse patient.[facility] the event this information is protected by the Federal Confidentiality of Alcohol and Drug Abuse Patient Records regulations: The Federal rules restrict any use of the information to criminally investigate or prosecute any alcohol or drug abuse patient.[facility] the event this information is protected by the Federal Confidentiality of Alcohol and Drug Abuse Patient Records regulations: The Federal rules restrict any use of the information to criminally investigate or prosecute any alcohol or drug abuse patient.[facility] the event this information is protected by the Federal Confidentiality of Alcohol and Drug Abuse Patient Records regulations: The Federal rules restrict any use of the information to criminally investigate or prosecute any alcohol or drug abuse patient.[facility] the event this information is protected by the Federal Confidentiality of Alcohol and Drug Abuse Patient Records regulations: The Federal rules restrict any use of the information to criminally investigate or prosecute any alcohol or drug abuse patient.[facility] the event this information is protected by the Federal Confidentiality of Alcohol and Drug Abuse Patient Records regulations: The Federal rules restrict any use of the information to criminally investigate or prosecute any alcohol or drug abuse patient.[facility] the event this information is protected by the Federal Confidentiality of Alcohol and Drug Abuse Patient Records regulations: The Federal rules restrict any use of the information to criminally investigate or prosecute any alcohol or drug abuse patient.[facility] the event this information is protected by the Federal Confidentiality of Alcohol and Drug Abuse Patient Records regulations: The Federal rules restrict any use of the information to criminally investigate or prosecute any alcohol or drug abuse patient.[facility] the event this information is protected by the Federal Confidentiality of Alcohol and Drug Abuse Patient Records regulations: The Federal rules restrict any use of the information to criminally investigate or prosecute any alcohol or drug abuse patient.[facility] the event this information is protected by the Federal Confidentiality of Alcohol and Drug Abuse Patient Records regulations: The Federal rules restrict any use of the information to criminally investigate or prosecute any alcohol or drug abuse patient.[facility] the event this information is protected by the Federal Confidentiality of Alcohol and Drug Abuse Patient Records regulations: The Federal rules restrict any use of the information to criminally investigate or prosecute any alcohol or drug abuse patient.[facility] the event this information is protected by the Federal Confidentiality of Alcohol and Drug Abuse Patient Records regulations: The Federal rules restrict any use of the information to criminally investigate or prosecute any alcohol or drug abuse patient.[facility] the event this information is protected by the Federal Confidentiality of Alcohol and Drug Abuse Patient Records regulations: The Federal rules restrict any use of the information to criminally investigate or prosecute any alcohol or drug abuse patient.[facility] the event this information is protected by the Federal Confidentiality of Alcohol and Drug Abuse Patient Records regulations: The Federal rules restrict any use of the information to criminally investigate or prosecute any alcohol or drug abuse patient.[facility] Dayton[facility] the event this information is protected by the Federal Confidentiality of Alcohol and Drug Abuse Patient Records regulations: The Federal rules restrict any use of the information to criminally investigate or prosecute any alcohol or drug abuse patient.[facility] Dayton[facility] the event this information is protected by the Federal Confidentiality of Alcohol and Drug Abuse Patient Records regulations: The Federal rules restrict any use of the information to criminally investigate or prosecute any alcohol or drug abuse patient.[facility] Dayton[facility] the event this information is protected by the Federal Confidentiality of Alcohol and Drug Abuse Patient Records regulations: The Federal rules restrict any use of the information to criminally investigate or prosecute any alcohol or drug abuse patient.[facility] Dayton[facility] the event this information is protected by the Federal Confidentiality of Alcohol and Drug Abuse Patient Records regulations: The Federal rules restrict any use of the information to criminally investigate or prosecute any alcohol or drug abuse patient.[facility] Dayton[facility] the event this information is protected by the Federal Confidentiality of Alcohol and Drug Abuse Patient Records regulations: The Federal rules restrict any use of the information to criminally investigate or prosecute any alcohol or drug abuse patient.[facility] Dayton[facility] the event this information is protected by the Federal Confidentiality of Alcohol and Drug Abuse Patient Records regulations: The Federal rules restrict any use of the information to criminally investigate or prosecute any alcohol or drug abuse patient.[facility] Dayton[facility] the event this information is protected by the Federal Confidentiality of Alcohol and Drug Abuse Patient Records regulations: The Federal rules restrict any use of the information to criminally investigate or prosecute any alcohol or drug abuse patient.[facility] the event this information is protected by the Federal Confidentiality of Alcohol and Drug Abuse Patient Records regulations: The Federal rules restrict any use of the information to criminally investigate or prosecute any alcohol or drug abuse patient.[facility] the event this information is protected by the Federal Confidentiality of Alcohol and Drug Abuse Patient Records regulations: The Federal rules restrict any use of the information to criminally investigate or prosecute any alcohol or drug abuse patient.[facility] the event this information is protected by the Federal Confidentiality of Alcohol and Drug Abuse Patient Records regulations: The Federal rules restrict any use of the information to criminally investigate or prosecute any alcohol or drug abuse patient.[facility] Dayton[facility] the event this information is protected by the Federal Confidentiality of Alcohol and Drug Abuse Patient Records regulations: The Federal rules restrict any use of the information to criminally investigate or prosecute any alcohol or drug abuse patient.[facility] Dayton[facility] the event this information is protected by the Federal Confidentiality of Alcohol and Drug Abuse Patient Records regulations: The Federal rules restrict any use of the information to criminally investigate or prosecute any alcohol or drug abuse patient.[facility] Dayton[facility] the event this information is protected by the Federal Confidentiality of Alcohol and Drug Abuse Patient Records regulations: The Federal rules restrict any use of the information to criminally investigate or prosecute any alcohol or drug abuse patient.[facility] Dayton[facility] the event this information is protected by the Federal Confidentiality of Alcohol and Drug Abuse Patient Records regulations: The Federal rules restrict any use of the information to criminally investigate or prosecute any alcohol or drug abuse patient.[facility] Dayton[facility] the event this information is protected by the Federal Confidentiality of Alcohol and Drug Abuse Patient Records regulations: The Federal rules restrict any use of the information to criminally investigate or prosecute any alcohol or drug abuse patient.[facility] Dayton[facility] the event this information is protected by the Federal Confidentiality of Alcohol and Drug Abuse Patient Records regulations: The Federal rules restrict any use of the information to criminally investigate or prosecute any alcohol or drug abuse patient.[facility] Dayton[facility] the event this information is protected by the Federal Confidentiality of Alcohol and Drug Abuse Patient Records regulations: The Federal rules restrict any use of the information to criminally investigate or prosecute any alcohol or drug abuse patient.[facility] Dayton[facility] the event this information is protected by the Federal Confidentiality of Alcohol and Drug Abuse Patient Records regulations: The Federal rules restrict any use of the information to criminally investigate or prosecute any alcohol or drug abuse patient.[facility] the event this information is protected by the Federal Confidentiality of Alcohol and Drug Abuse Patient Records regulations: The Federal rules restrict any use of the information to criminally investigate or prosecute any alcohol or drug abuse patient.[facility] the event this information is protected by the Federal Confidentiality of Alcohol and Drug Abuse Patient Records regulations: The Federal rules restrict any use of the information to criminally investigate or prosecute any alcohol or drug abuse patient.[facility] Dayton[facility] the event this information is protected by the Federal Confidentiality of Alcohol and Drug Abuse Patient Records regulations: The Federal rules restrict any use of the information to criminally investigate or prosecute any alcohol or drug abuse patient.[facility] DaytonIn the event this information is protected by the Federal Confidentiality of Alcohol and Drug Abuse Patient Records regulations: The Federal rules restrict any use of the information to criminally investigate or prosecute any alcohol or drug abuse patient.[facility] DaytonIn the event this information is protected by the Federal Confidentiality of Alcohol and Drug Abuse Patient Records regulations: The Federal rules restrict any use of the information to criminally investigate or prosecute any alcohol or drug abuse patient.[facility] Dayton[facility] the event this information is protected by the Federal Confidentiality of Alcohol and Drug Abuse Patient Records regulations: The Federal rules restrict any use of the information to criminally investigate or prosecute any alcohol or drug abuse patient.[facility] Reason for Visit (unrecogniz ed section and content) Reason Comments Results Reason Comments Patient Request Reason Comments Home Medical Supply Reason Comments Physical Reason Onset Date Comments Initial OB Visit Transfer from [facility] Immunizations 03/17/2023 Flu vaccination Reason Onset Date Comments Care 04/01/2023 Reason Comments FMLA Paperwork Reason Comments GDM Reason Comments Patient Question Reason Comments Blood Sugar Reading Reason Onset Date Comments Care 05/13/2023 Reason Comments insulin out of stock / refill needed Reason Comments Follow Up Reason Comments Patient Education Assessment Specialty Diagnoses / Procedures Referred By Contac t Referred To Contact Nutrition Diagnoses Gestational diabetes mellitus (GDM) in second trimester, gestational diabetes method of control unspecified Procedures CONSULT TO NUTRITION THERAPY MEDICAL NUTRITION ASSMT&IVNTJ INDIV EACH 15 DE MEDICAL NUTRITION ASSMT&IVNTJ INDIV EACH 15 DE MEDICAL NUTRITION ASSMT&IVNTJ INDIV EACH 15 DE MEDICAL NUTRITION ASSMT&IVNTJ INDIV EACH 15 DE Neo Melendez MD [address] [place] [address] Referral ID Status Reason Start Date Expiration Date V isits Requested Visits Authorized [id number] Closed PCP Requested Referral 04/08/2023 04/07/2024 1 1 Reason Comments prescription resend Reason Comments US Specialty Diagnoses / Procedures Referred By Contac t Referred To Contact [facility] Diagnoses 28 weeks gestation of Diabetes mellitus type 1, controlled, without complications (HCC) H/O intrauterine , currently Procedures OBSTETRIC ULTRASOUND WHI US PREG UTERUS AFTER 1ST TRIMEST GESTATION Neo Melendez MD [address] [place] [address] [facility] [address] [place] [address] Referral ID Status Reason Start Date Expiration Date V isits Requested Visits Authorized [id number] Closed Auto-Generate d Referral 06/10/2023 06/09/2024 10 1 Reason Onset Date Comments Care 07/31/2023 Reason Onset Date Comments Refill Request 08/04/2023 Reason Onset Date Comments Care 08/05/2023 Reason Onset Date Comments Care 08/08/2023 Care Teams (unrecognized sec tion and content) Washery Boss Relationship Specialty Start Date End Date Juana Alvarado MD [address] [facility] [place] [address] PCP - General Family Practice 12/22/17 José Luis Shepherd Jr. [address] [facility] [address] [place] [address] General Foreman Obstetrics 02/13/16 Washery Boss Relationship Specialty Start Date End Date Juana Alvarado MD [address] [facility] [place] [place] [address] PCP - General Family Practice 12/22/17 José Luis Shepherd Jr. [address] [facility] [address] [place] [address] General Foreman Obstetrics 02/13/16 Washery Boss Relationship Specialty Start Date End Date Juana Alvarado MD [address] [place] [address] PCP - General Family Practice 12/22/17 José Luis Shepherd Jr. [address] [facility] [address] [place] [address] General Foreman Obstetrics 02/13/16 Washery Boss Relationship Specialty Start Date End Date Juana Alvarado MD [address] [place] [address] PCP - General Family Practice 12/22/17 José Luis Shepherd Jr. [address] [facility] [address] [place] [address] General Foreman Obstetrics 02/13/16 Washery Boss Relationship Specialty Start Date End Date Juana Alvarado MD [address] [place] [address] PCP - General Family Medicine 12/22/17 José Luis Shepherd Jr. [address] [facility] [address] [place] [address] General Foreman Obstetrics 02/13/16 Washery Boss Relationship Specialty Start Date End Date Juana Alvarado MD [address] [place], [place] [id number] PCP - General Family Medicine 12/22/17 José Luis Shepherd Jr. [address] [facility] [place] [address] General Foreman Obstetrics 02/13/16 Washery Boss Relationship Specialty Start Date End Date Juana Alvarado MD [address] [place] [address] PCP - General Family Medicine 12/22/17 José Luis Shepherd Jr. [address] [facility] [address] [address] General Foreman Obstetrics 02/13/16 Washery Boss Relationship Specialty Start Date End Date Juana Alvarado MD [address] [place], [place] 353205 [phone] PCP - General Family Medicine 12/22/17 José Luis Shepherd Jr. [address] [facility] [place] [address] General Foreman Obstetrics 02/13/16 Washery Boss Relationship Specialty Start Date End Date Juana Alvarado MD [address] [place] [address] PCP - General Family Medicine 12/22/17 José Luis Shepherd Jr. [address] [facility] [address] [address] General Foreman Obstetrics 02/13/16 Washery Boss Relationship Specialty Start Date End Date Juana Alvarado MD [address] [place], [place] [address]4441 PCP - General Family Medicine 12/22/17 José Luis Shepherd Jr. [address] [facility] [address] [address] General Foreman Obstetrics 02/13/16 Washery Boss Relationship Specialty Start Date End Date Juana Alvarado MD [address] [place], [place] 217621 PCP - General Family Medicine 12/22/17 José Luis Shepherd Jr. [address] [facility] [address] [address] General Foreman Obstetrics 02/13/16 Washery Boss Relationship Specialty Start Date End Date Juana Alvarado MD [address] [place], [place] [address] PCP - General Family Medicine 12/22/17 José Luis Shepherd Jr. [address] [facility] [address] [address] General Foreman Obstetrics 02/13/16 Washery Boss Relationship Specialty Start Date End Date Juana Alvarado MD [address] [place] [address] PCP - General Family Medicine 12/22/17 José Luis Shepherd Jr. [address] [facility] [address] [address] General Foreman Obstetrics 02/13/16 Washery Boss Relationship Specialty Start Date End Date Juana Alvarado MD [address] [place] [address] PCP - General Family Medicine 12/22/17 José Luis Shepherd Jr. [address] [facility] [address] [address] General Foreman Obstetrics 02/13/16 Washery Boss Relationship Specialty Start Date End Date Juana Alvarado MD [address] [place], [place] [address] PCP - General Family Medicine 12/22/17 José Luis Shepherd Jr. [address] [facility] [address] [address] General Foreman Obstetrics 02/13/16 Washery Boss Relationship Specialty Start Date End Date Juana Alvarado MD [address] [place], [place] [address]91 PCP - General Family Medicine 12/22/17 José Luis Shepherd Jr. [address] [facility] [address] [address] General Foreman Obstetrics 02/13/16 Washery Boss Relationship Specialty Start Date End Date Juana Alvarado MD [address] [place] [address] PCP - General Family Medicine 12/22/17 José Luis Shepherd Jr. [address] [facility] [address] [id number] General Foreman Obstetrics 02/13/16 Washery Boss Relationship Specialty Start Date End Date Juana Alvarado MD [address] [place] [address] PCP - General Family Medicine 12/22/17 José Luis Shepherd Jr. [address] [place] [address] [address] [place] [address] General Foreman Obstetrics 02/13/16 Washery Boss Relationship Specialty Start Date End Date Juana Alvarado MD [address] [place] [address] PCP - General Family Medicine 12/22/17 José Luis Shepherd Jr. [address] [facility] [address] [address] General Foreman Obstetrics 02/13/16 Washery Boss Relationship Specialty Start Date End Date Juana Alvarado MD [address] [place] [address] PCP - General Family Medicine 12/22/17 José Luis Shepherd Jr. [address] [facility] [address] [address] General Foreman Obstetrics 02/13/16 Washery Boss Relationship Specialty Start Date End Date Juana Alvarado MD [address] [place] [address] PCP - General Family Medicine 12/22/17 José Luis Shephred Jr. [address] [facility] [address] [place] [address] General Foreman Obstetrics 02/13/16 Washery Boss Relationship Specialty Start Date End Date Juana Alvarado MD [address] [place], [place] 312021 PCP - General Family Medicine 12/22/17 José Luis Shepherd Jr. [address] [place] [address] [address] [place] [phone] General Foreman Obstetrics 02/13/16 Washery Boss Relationship Specialty Start Date End Date Juana Alvarado MD [address] [place], [place] [address]8651 PCP - General Family Medicine 12/22/17 José Luis Shepherd Jr. [address] [facility] [address] [address] General Foreman Obstetrics 02/13/16 Washery Boss Relationship Specialty Start Date End Date Juana Alvarado MD [address] [place], [place] [address] PCP - General Family Medicine 12/22/17 José Luis Shepherd Jr. [address] [facility] [address] [place] [address] General Foreman Obstetrics 02/13/16 Washery Boss Relationship Specialty Start Date End Date Juana Alvarado MD [address] [place], [place] 798551 PCP - General Family Medicine 12/22/17 José Luis Shepherd Jr. [address] [facility] [address] [place] [address] General Foreman Obstetrics 02/13/16 Washery Boss Relationship Specialty Start Date End Date Juana Alvarado MD [address] [place], [place] [address]281 PCP - General Family Medicine 12/22/17 José Luis Shepherd Jr. [address] [place] [address] [address] [place], [place] [id number] General Foreman Obstetrics 02/13/16 Washery Boss Relationship Specialty Start Date End Date Juana Alvarado MD [address] [place], [place] 428821 PCP - General Family Medicine 12/22/17 José Luis Shepherd Jr. [address] [facility] [address] [place] [address] General Foreman Obstetrics 02/13/16 Washery Boss Relationship Specialty Start Date End Date Juana Alvarado MD [address] [place], [place] 356031 PCP - General Family Medicine 12/22/17 José Luis Shepherd Jr. [address] [facility] [address] [place] [address] General Foreman Obstetrics 02/13/16 Washery Boss Relationship Specialty Start Date End Date Juana Alvarado MD [address] [place], [place] 774591 PCP - General Family Medicine 12/22/17 José Luis Shepherd Jr. [address] [facility] [place] [address] General Foreman Obstetrics 02/13/16 FOR RECORDS PERTAINING TO PATIENTS WHO ARE OR HAVE BEEN ENROLLED IN A CHEMICAL DEPENDENCY/SUBSTANCEABUSE PROGRAM, SOME INFORMATION MAY BE OMITTED. This clinical summary was aggregated from multiple sources. Caution should be exercised in using it in the provision of clinical care. This summary normalizes information from multiple sources, and as a consequence, information in this document may materially change the coding, format and clinical context of patient data. In addition, data may be omitted in some cases. CLINICAL DECISIONS SHOULD BE BASED ON THE PRIMARY CLINICAL RECORDS. [facility]. provides no warranty or guarantee of the accuracy or completeness of information in this document.
[2023-08-15] MEDS: Lactated Ringers 1,000 ML 50 ML IV ×2 (11:00→23:18)
[2023-08-15 11:27] LABS: Absolute Lymphocyte Count 2.21 X10^3/uL (0.83-4.51); Absolute Neutrophil Count 6.7 X10^3/uL (2.0-7.7); Basophil# 0.04 X10^3/uL; Basophil% 0.4 % (0-1); Eosinophil# 0.08 X10^3/uL; Eosinophils% 0.8 % (0-5); Hematocrit 34.4 % (37-47); Hemoglobin 11.4 g/dL (12.0-15.0); Lymphocyte # 2.21 X10^3/ul (0.83-4.51); Lymphocyte % 22.4 % (19-41); Mean Corp Hgb Conc 33.1 g/dL (32-36); Mean Corpuscular Hgb 30.8 pg (27.0-32.0); Mean Platelet Vol. 11.4 fl (6.2-12.0); Monocyte# 0.76 X10^3/uL; Monocyte% 7.7 % (0-10); NRBC Flagged by Analyzer 0 % (0-5); Neutrophil # 6.67 X10^3/uL (2.7-7.7); Neutrophil % 67.7 % (47-70); Platelet Count 218 K/mm3 (150-450); RBC Distribution Width SD 43.7 fl (35.1-43.9); White Blood Count 9.9 K/mm3 (4.4-11.0)
[2023-08-15 11:42] VITALS: BMI 42.7
[2023-08-15 12:09] LABS: Syphilis Antibodies Non-reactive
[2023-08-15] MEDS: miSOPROStol 25 MCG TABLET VAGINAL ×2 (12:34→16:49)
[2023-08-15 14:17] LABS: Bedside Glucose 77 mg/dL (74-106)
[2023-08-15 17:09] LABS: Bedside Glucose 74 mg/dL (74-106)
[2023-08-15 19:27] VITALS: PULSE 86; TEMP 37.5; O2SAT 97
[2023-08-15 19:28] VITALS: BP 141/88; PULSE 86
[2023-08-15] MEDS: 0.9% Normal Saline Single 100 ML IV.SOLN. INTRA-UTER (20:07)
[2023-08-15 20:39] LABS: Bedside Glucose 89 mg/dL (74-106)
--- NOTE | 2023-08-15 20:43 | PCM.HP.OB ---
HPI - General General Date of Admission: 08/15/23 Date of Service: 08/15/23 Chief Complaint: induction HPI Narrative LEIDA MURDOCK, is a 32 F at 37w4d who presents from the office for an induction of labor. Came in for routine OB visit and states her BG last night was in the 200's. She is having DFM. No BEAN, vision changes, upper abd pain, ctx, vb, lof. PFSH PFSH Medical History (Updated 08/15/23 @ 20:[address] Yocasta Parr, DO) Arthritis Gastric reflux Gestational diabetes History of demise, not currently History of IBS History of stress test Kidney stones Migraine headache Restless legs Smoker Stillborn, normal Home Medications aspirin 81 mg chewable tablet (Aspirin Childrens) 1 tab PO DAILY bleeding 08/15/23 [History Last Taken 08/15/23] enoxaparin 40 mg/0.4 mL subcutaneous syringe mg subcut Q24H blood clots 08/15/23 [History Last Taken 08/14/23 22:30] insulin NPH isoph U-100 human 100 unit/mL (3 mL) subcutaneous pen (Humulin N NPH U-100 Insulin KwikPen) unit subcut gdm 08/15/23 [History Last Taken 08/14/23 22:00 80 unit] insulin lispro 100 unit/mL subcutaneous pen 80 unit subcut DINNER gdm 08/15/23 [History Last Taken 08/14/23 18:00 80 units] Allergy/AdvReac Type Severity Reaction Status Date / Time No Known Allergies Allergy Verified 08/15/23 11:49 Family History Other Blood clot associated with vein wall inflammation Heart disease Surgical History (Updated 08/15/23 @ 11:48 by Sugey Barillas) History of gynecologic surgery History of tonsillectomy and adenoidectomy Hx of colonoscopy Hx of dilation and curettage Hx of laparoscopy Hx of wisdom tooth extraction Social History Smoking Status: Current every day smoker tobacco type: cigarettes History Elective abortions Hx Para 0 Spontaneous abortions Hx # Term Pregnancies Ectopic pregnancies Hx # Pregnancies Multiple births # of living children NST FHR Rate Baby A FHR Category:: Category I Vital Signs Vital Signs Vital Signs: 08/15/23 10:36 08/15/23 10:36 08/15/23 19:27 Temperature Temperature Source Tympanic Pulse Rate 96 Blood Pressure 115/81 H BP Systolic 115 BP Diastolic 81 Pulse Ox 08/15/23 19:27 08/15/23 19:27 08/15/23 19:27 Temperature 99.5 F H Temperature Source Pulse Rate 86 Blood Pressure BP Systolic BP Diastolic Pulse Ox 97 08/15/23 19:28 08/15/23 19:28 Temperature Temperature Source Pulse Rate 86 Blood Pressure 141/88 H BP Systolic 141 BP Diastolic 88 Pulse Ox Weight Weight: 273 lb Body Mass Index (BMI) 42.7 Labs Labs Labs: Blood Type O POSITIVE Antibody Screen NEGATIVE Hct 34.4 % (37-47) L Hgb 11.4 g/dL (12.0-15.0) L Syphilis Total Ab Non-reactive VZV IgG Antibody 3497 index (Immune >165) Rubella IgG Antibody Reactive (Nonreactive) Hep Bs Antigen Non-Reactive (Nonreactive) Hepatitis C Antibody Non-Reactive (Nonreactive) Hepatitis C Ab (EIA) 0.1 s/co ratio (0.0-0.9) HIV 1&2 Antibody Non-Reactive (Nonreactive) Glucose 1 Hr 50 gm 136 mg/dL (70-140) Rhogam given: No Miscellaneous Test Assessment & Plan (1) 37 weeks gestation of : PLAN: Discussed r/b/a to induction of labor given likely pre gestational diabetes with now elevating blood sugars, DFM, and h/o IUFD. Discussed early term at 37 weeks and risk of early delivery with baby at 37 weeks. [facility] recommended delivery 37-39 weeks. Patient desires induction and consent signed. Cytotec induction. GBS negative. EFW < 4500 g and pelvis adequate. EFW 6 lb 11 oz 3,042 g on 08/05/23. (2) Obesity affecting : (3) Gestational diabetes: PLAN: Diabetic protocol. Message sent to Dr. Barone with endocrinology for plan. Discussed with patient will need to check blood sugars . Discussed concern for pre gestational diabetes. (4) History of IUFD: (5) Tobacco use: (6) Polyhydramnios affecting : PLAN: Mild polyhydramnios on ultrasound with NATAN 25 cm.
--- NOTE | 2023-08-15 20:51 | PCM.PN.BLA ---
Progress Note Pt resting comfortably after 2 doses cytotec. Assessment & Plan Assessment/Plan (1) Polyhydramnios affecting : (2) Tobacco use: (3) History of IUFD: (4) Gestational diabetes: (5) Obesity affecting : (6) 37 weeks gestation of : PLAN: Cvx 1/t/h, posterior. Bedside TAUS confirms vertex presentation. Intracervical moncada placed in usual sterile fashion and filled with 30 cc.
[2023-08-15 21:27] VITALS: BP 138/90; PULSE 103; TEMP 37.5; O2SAT 96
[2023-08-15] MEDS: Insulin NPH Human 100 UNITS/ML PEN 40 UNITS SC (22:09)
[2023-08-15 22:32] VITALS: BP 132/94; PULSE 108; PULSE 121; TEMP 37; O2SAT 96
[2023-08-15 22:49] LABS: Bedside Glucose 78 mg/dL (74-106)
[2023-08-15] MEDS: CHLORHEXIDINE GLUC 2% CLOTH 1 EACH TOWELETTE TOPICAL (23:19)
[2023-08-15 23:23] VITALS: BP 140/88; PULSE 102; TEMP 36.8; O2SAT 95
[2023-08-16] VITALS (76 sets, daily range): BP systolic 108–171; BP diastolic 56–96; PULSE 83–138; RESP 13–21; TEMP 36.6–38.1; O2SAT 92–99
[2023-08-16] MEDS: Oxytocin 15 Units/NS 250ml 15 UNITS/250 ML IV.SOLN 2 UNITS IV (02:00)
[2023-08-16 03:14] LABS: Bedside Glucose 64 mg/dL (74-106)
[2023-08-16 03:23] LABS: Bedside Glucose 89 mg/dL (74-106)
--- NOTE | 2023-08-16 04:34 | PCM.PN.BLA ---
Progress Note At bedside to check on pt. Uncfomfortable with ctx's and breathing through them. Assessment & Plan Assessment/Plan (1) Polyhydramnios affecting : (2) Tobacco use: (3) History of IUFD: (4) Gestational diabetes: (5) Obesity affecting : (6) 37 weeks gestation of : PLAN: Cvx 3/50/-3, vertex. Pit at 4 mu/min. Category 1 tracing and toco with ctx q 2-3 min. Will AROM when able.
[2023-08-16 07:21] LABS: Bedside Glucose 89 mg/dL (74-106)
--- NOTE | 2023-08-16 08:59 | PCM.PN.BLA ---
Progress Note Pt's ctx's are less painful. No BEAN or vision changes. Assessment & Plan Assessment/Plan (1) Polyhydramnios affecting : (2) Tobacco use: (3) History of IUFD: (4) Gestational diabetes: (5) Obesity affecting : (6) 37 weeks gestation of : PLAN: Cvx /-2, head applied. AROM performed in usual fashion with return of a large amount of clear fluid. head palpated after AROM. RN placed FSE. Category 1 tracing. Cont current management.
[2023-08-16 09:50] LABS: ALB/GLOB Ratio 0.6 RATIO (0.9-2.4); AST(SGOT) 15 U/L (15-37); Alanine Aminotransfer ALT/SGPT 18 U/L (13-56); Albumin, Serum 2.4 g/dL (3.2-5.0); Alkaline Phosphatase 194 U/L (45-117); Anion Gap 6 (5-15); BUN 5 mg/dL (7-18); BUN/Creat Ratio 9.2 RATIO (10-20); Calcium,Total 9.3 mg/dL (8.5-10.1); Chloride 108 mmol/L (98-107); Creatinine, Serum 0.54 mg/dL (0.55-1.02); EST Glomerular Filtration Rate 139 mL/min (>60); Est Glom Filt Rate - Afr Amer 168 mL/min (>60); Globulin 3.9 g/dL (2.2-4.2); Glucose 75 mg/dL (74-106); Potassium 4.1 mmol/L (3.5-5.1); Protein, Total 6.3 g/dL (6.4-8.2); Sodium Level 137 mmol/L (136-145)
[2023-08-16 10:20] LABS: Protein, Urine (Random) 39.7 mg/dL (<11.9); Protein:Creat Ratio 358 mg/g CRE (0-200)
[2023-08-16] MEDS: LACTATED RINGERS 500 ML 999 ML IV ×2 (11:17→16:01)
[2023-08-16 11:44] LABS: Bedside Glucose 117 mg/dL (74-106)
[2023-08-16] MEDS: fentaNYL-bupivacaine (epidural) 100 ML BAG EPIDURAL ×2 (12:15→16:23)
[2023-08-16 12:50] LABS: Bedside Glucose 87 mg/dL (74-106)
[2023-08-16] MEDS: Lactated Ringers 1,000 ML 200 ML IV ×2 (13:10→19:05)
[2023-08-16] MEDS: CHLORHEXIDINE GLUC 2% CLOTH 1 EACH TOWELETTE TOPICAL (13:10)
[2023-08-16 13:34] LABS: Bedside Glucose 75 mg/dL (74-106)
--- NOTE | 2023-08-16 16:58 | PCM.PN.BLA ---
Progress Note At bedside to check on pt. Comfortable with epidural. Assessment & Plan Assessment/Plan (1) Polyhydramnios affecting : (2) Tobacco use: (3) History of IUFD: (4) Gestational diabetes: (5) Obesity affecting : (6) 37 weeks gestation of : PLAN: Cvx unchanged per RN. At bedside to check on pt. Discussed diagnosis of pre eclampsia based on elevated blood pressure and elevated p/c ratio. She has no symptoms of pre e at this time, and no severe BP's. Cervical exam remains unchanged. Adequate contractions with IUPC in place. FHT 145/mod max/no accels/no decels. Discussed if no cervical change after 12-24 hours with adequate contractions since she is ruptured, would recommend section at that time. Maternal tachycardia noted, but patient is asymptomatic. No fevers or tachycardia. Will recheck 4 hours from last exam and reassess at that time. Questions answered. (7) Pre-eclampsia:
[2023-08-16 17:54] LABS: Bedside Glucose 80 mg/dL (74-106)
[2023-08-16] MEDS: 0.9% Saline Lock 10 ML Syringe IV (18:09)
[2023-08-16] MEDS: Acetaminophen 500 MG Tablet PO (20:26)
[2023-08-16] MEDS: Sodium Citrate/Citric Acid 30 ML UDC PO (20:41)
[2023-08-16] MEDS: Cefazolin 3 GM in 0.9% Normal Saline (100mL Bag) 100 ML IV (21:01)
[2023-08-16] MEDS: Azithromycin 500 MG in Dextrose 5%-Water (250mL Bag) 250 ML 250 MG IV (21:37)
[2023-08-16 22:03] LABS: Bedside Glucose 78 mg/dL (74-106)
[2023-08-16] MEDS: Oxytocin 15 Units/NS 250ml 15 UNITS/250 ML IV.SOLN 83 UNITS IV (22:22)
--- NOTE | 2023-08-16 22:27 | PCM.PN.BLA ---
Progress Note Delayed entry. At bedside to recheck pt. Assessment & Plan Assessment/Plan (1) Pre-eclampsia: (2) Polyhydramnios affecting : (3) Tobacco use: (4) History of IUFD: (5) Gestational diabetes: (6) Obesity affecting : (7) 37 weeks gestation of : PLAN: Cvx remains 4 cm after 12 hours and rupture of membranes. IUPC has been in place, with adequate contractions. Temporal temperature > 100.4, oral temperature normal. Pre eclampsia: BP stable. GDM likely pre gestational diabetic: BG < 120. Discussed with patient option for continued monitoring. Discussed that if unchanged after 24 hours would recommend a section. Reviewed r/b/a continued monitoring vs primary section. Patient is requesting a primary section at this time, and consent obtained.
--- NOTE | 2023-08-16 22:32 | PCM.OPRPT ---
Problems Associated Problem List Diagnoses (1) Pre-eclampsia: (2) Polyhydramnios affecting : (3) Tobacco use: (4) History of IUFD: (5) Gestational diabetes: (6) Obesity affecting : (7) 37 weeks gestation of : (8) Delivery by section: (9) Fever: Report of Operation Date of Procedure: 08/16/23 Pre-Operative Diagnosis: 37 week gestation, single IUP, h/o IUFD, A2GDM likely pre gestational diabetic, pre eclampsia, polyhydrannios, isolated maternal fever, failure to progress Post-Operative Diagnosis: As above Surgery/Procedure Performed:: PLTCS via pfannenstiel incision Description of Surgical Findings:: VFI in cephalic presentation. Apgars 8, 8. Normal appearing uterus and bilateral adnexa. Surgeon: Yocasta Parr test facility engineer: Moises ARAUZ Type of Anesthesia: Epidural Special Medications: None Specimen's removed: Placenta Drains: Moncada Estimated Blood Loss (mL): 600 Fluids Replaced: 1100 mL Description of Procedure: Indications: Pt presented for IOL at 37 weeks given A2GDM with elevating blood sugars, h/o IUFD, pre eclampsia, obesity, polyhydramnios in . Induction was started with Cytotec followed by an intracervical moncada. Pitocin was then started, and AROM performed. Patient progressed to 4 cm. She remained 4 cm after 12 hours with adequate contractions and after rupture of membranes. Patient then desired to proceed with a section. Procedure: Patient was taken to the operating room where epidural anesthesia was found to be adequate. She was prepped and draped in the dorsal supine position with a leftward tilt. A Pfannenstiel skin incision was made with a scalpel and carried down to the underlying layer of fascia. The fascia was incised in midline. The fascia was extended laterally using Edwards scissors. The fascia was dissected off the rectus muscles in a cephalad and caudad direction using a combination of sharp and blunt dissection. The rectus muscles were in the midline. The peritoneum was entered bluntly with good visualization of the bladder. The peritoneal incision was extended bluntly with lateral traction. A bladder blade was inserted. A low transverse incision was made on the uterus with a scalpel. The uterine incision was extended by providing traction both cephalad and caudad. The 's head was flexed and delivered through the hysterotomy. The viable female infant was delivered through the hysterotomy without any force, traction, or delay. The cord was clamped and cut after a slight delay and the infant was handed off to the waiting nursery staff. The placenta was removed with manual extraction. The uterus was exteriorized. The uterus was cleared of all clot and debris. The hysterotomy was closed with 1-0 Vicryl in a running locked fashion. Several additional [id number]-[id number] sutures were placed for hemostasis. Bilateral adnexa were normal-appearing. The uterus was placed back into the abdomen. Hemostasis was again noted. Chhaya was placed over the hysterotomy and lower uterine segment. The peritoneum was closed with 3-0 Vicryl in a running fashion. The subfascial space was noted to be hemostatic. The fascia was closed with strata fix in a running fashion. Subcutaneous space was irrigated and made hemostatic with the Bovie cautery. The subcutaneous space was reapproximated using 3-0 Vicryl in a running fashion. The skin was closed with 4-0 Monocryl in a subcuticular fashion. A silver dressing was placed. Instrument, sponge, sharp counts were correct and the patient was taken to the recovery in stable condition. Moises ARAUZ was present for the entire case and assisted with draping the patient, delivery of the infant, and closure. Grafts/Implants Used: None Procedure Start Time: 21:08 Procedure Stop Time: 22:07 Complications None Admit VTE Documentation VTE Present on Admission: No VTE Mechan Device Prophylaxis: SCD's
[2023-08-16] MEDS: Ketorolac 30 MG/ML Syringe IV (22:53)
[2023-08-17] VITALS (17 sets, daily range): BP systolic 111–119; BP diastolic 57–83; PULSE 90–115; RESP 14–18; TEMP 36.2–37.2; O2SAT 92–96
[2023-08-17 01:00] LABS: Bedside Glucose 107 mg/dL (74-106)
[2023-08-17] MEDS: Lactated Ringers 1,000 ML 100 ML IV (01:32)
[2023-08-17] MEDS: Acetaminophen 500 MG Tablet 1000 MG PO ×4 (02:50→20:18)
[2023-08-17] MEDS: Ketorolac 30 MG/ML Syringe IV ×3 (04:50→16:56)
[2023-08-17 07:07] LABS: Hemoglobin 10.7 g/dL (12.0-15.0); Mean Corp Hgb Conc 33.4 g/dL (32-36); Mean Corpuscular Hgb 31.3 pg (27.0-32.0); Mean Corpuscular Volume 93.6 fL (81-99); Mean Platelet Vol. 11.3 fl (6.2-12.0); Platelet Count 234 K/mm3 (150-450); RBC Distribution Width CV 13.1 % (11.6-14.6); RBC Distribution Width SD 44.4 fl (35.1-43.9); Red Blood Count 3.42 M/mm3 (4.2-5.4); White Blood Count 15.5 K/mm3 (4.4-11.0)
[2023-08-17 07:10] LABS: Bedside Glucose 156 mg/dL (74-106)
--- NOTE | 2023-08-17 08:42 | PN.OBGYN_ITS ---
Subjective Subjective The patient is doing well this morning. She states she had Orozco's last night around 2 AM and the blood sugar this morning was not truly fasting. Her pain has been well-controlled. She just got up to the chair and did well with ambulation. The Man was just removed so she has not yet spontaneously voided. She is tolerating regular diet without nausea or vomiting. She denies lightheadedness, dizziness, chest pain, shortness of breath, leg pain. Objective Data Objective Data Vital Signs: Vital Signs Temp Pulse Resp BP Pulse Ox O2 Del Method 98.1 F 106 H 16 111/68 96 Room Air 08/17/23 06:29 08/17/23 06:29 08/17/23 06:29 08/17/23 06:29 08/17/23 06:29 08/17/23 06:29 Oxygen Delivery Method Room Air Weight: 273 lb Body Mass Index (BMI) 42.7 Intake & Output: Intake and Output for Last 24 Hours 08/15/23 08/16/23 08/17/23 23:59 23:59 23:59 Intake Total 615 / 615 4898.99 / 4898.99 250 / 250 Output Total 1550 / 1550 100 / 100 Balance 615 / 615 3348.99 / 3348.99 150 / 150 Lab / Micro Data 08/17/23 06:56 08/16/23 09:15 Labs: Laboratory Results - last 24 hr 08/16/23 09:15: Sodium 137, Potassium 4.1, Chloride 108 H, Carbon Dioxide 23.0, Anion Gap 6, BUN 5 L, Creatinine 0.54 L, Estim Creat Clear Calc 208.00, Est GFR (MDRD) Af Amer 168, Est GFR (MDRD) Non-Af 139, BUN/Creatinine Ratio 9.2 L, Glucose 75, Calcium 9.3, Total Bilirubin 0.30, AST 15, ALT 18, Alkaline Phosphatase 194 H, Total Protein 6.3 L, Albumin 2.4 L, Globulin 3.9, Albumin/Globulin Ratio 0.6 L, U Random Total Protein 39.7 H, Urine Creatinine 111.00, Protein/Creatinin Ratio 358 H 08/16/23 11:08: POC Glucose 117 H 08/16/23 12:17: POC Glucose 87 08/16/23 13:14: POC Glucose 75 08/16/23 17:18: POC Glucose 80 08/16/23 20:25: POC Glucose 78 08/17/23 00:27: POC Glucose 107 H 08/17/23 06:45: POC Glucose 156 H 08/17/23 06:56: WBC 15.5 H, RBC 3.42 L, Hgb 10.7 L, Hct 32.0 L, MCV 93.6, MCH 31.3, MCHC 33.4, RDW Std Deviation 44.4 H, RDW Coeff of Esther 13.1, Plt Count 234, MPV 11.3 Micro: Microbiology 08/15/23 23:38 Genital vaginal Chlamydia trachomatis (PCR) - Final 08/15/23 23:38 Genital vaginal Neisseria gonorrhoeae (PCR) - Final Physical Exam Const alert and no apparent distress General Appearance: comfortable HEENT normocephalic Resp normal respiratory effort GI soft to palpation, non-tender and non-distended GI Narrative: dressing c/d/i Extremity no calf tenderness Assessment & Plan (1) Delivery by section: PLAN: The patient is postoperative day 1 from a section. Pain is well-controlled. Await spontaneous void this morning. She is ambulating and eating well. Routine postoperative care. (2) Pre-eclampsia: PLAN: Blood pressures are normal and she has no symptoms of preeclampsia this morning. Continue to closely monitor. (3) Gestational diabetes: PLAN: Continue to check blood sugars at least 24 hours . Elevated fasting this morning however patient had fast food 5 hours prior to draw, therefore was not truly a fasting blood sugar. A sliding scale insulin is ordered for coverage if needed. Will monitor her blood sugars over at least 24- hours, and determine if insulin is needed. Discussed with patient likely pregestational diabetic. Discussed it is likely that she will need medication or insulin. She already has follow-up scheduled with Dr. Barone with endocrinology.
[2023-08-17 10:22] LABS: Bedside Glucose 114 mg/dL (74-106)
[2023-08-17] MEDS: Senna/Docusate Sodium 1 Tablet PO (10:34)
[2023-08-17] MEDS: 0.9% Saline Lock 10 ML Syringe IV ×3 (10:34→16:50)
[2023-08-17] MEDS: Enoxaparin 40 MG/0.4 ML Syringe SC (12:16)
[2023-08-17] MEDS: Lactated Ringers 500 ML 999 ML IV (14:00)
[2023-08-17 15:12] LABS: Bedside Glucose 92 mg/dL (74-106)
[2023-08-17 20:41] LABS: Bedside Glucose 102 mg/dL (74-106)
[2023-08-17] MEDS: Ibuprofen 600 MG Tablet PO (22:58)
[2023-08-17 23:33] LABS: Bedside Glucose 159 mg/dL (74-106)
[2023-08-18 01:05] VITALS: BP 131/71; PULSE 84; RESP 18; TEMP 36.6; O2SAT 96
[2023-08-18] MEDS: Acetaminophen 500 MG Tablet 1000 MG PO ×2 (03:01→09:36)
[2023-08-18 03:45] VITALS: BP 112/82; PULSE 93; RESP 16; TEMP 36.6; O2SAT 94
[2023-08-18] MEDS: Ibuprofen 600 MG Tablet PO ×2 (05:11→11:57)
[2023-08-18 06:56] LABS: Bedside Glucose 98 mg/dL (74-106)
--- NOTE | 2023-08-18 08:26 | PCM.PROGNOTE ---
Subjective Subjective patient seen at bedside, doing well. Patient reports good pain control. lochia mild. Objective Data Objective Data Vital Signs: Vital Signs Temp Pulse Resp BP Pulse Ox O2 Del Method 97.8 F 93 16 112/82 H 94 Room Air 08/18/23 03:45 08/18/23 03:45 08/18/23 03:45 08/18/23 03:45 08/18/23 03:45 08/18/23 03:45 Oxygen Delivery Method Room Air Weight: 123.831 kg Body Mass Index (BMI) 42.7 Intake & Output: Intake and Output for Last 24 Hours 08/16/23 08/17/23 08/18/23 23:59 23:59 23:59 Intake Total 4898.99 / 4898.99 2046.67 / 2046.67 Output Total 1550 / 1550 900 / 900 Balance 3348.99 / 3348.99 1146.67 / 1146.67 Lab / Micro Data 08/17/23 06:56 08/16/23 09:15 Labs: Laboratory Results - last 24 hr 08/17/23 10:02: POC Glucose 114 H 08/17/23 14:53: POC Glucose 92 08/17/23 20:14: POC Glucose 102 08/17/23 23:13: POC Glucose 159 H 08/18/23 06:37: POC Glucose 98 Micro: Microbiology 08/15/23 23:38 Genital vaginal Chlamydia trachomatis (PCR) - Final 08/15/23 23:38 Genital vaginal Neisseria gonorrhoeae (PCR) - Final Physical Exam Narrative Dressing dry and intact. Fundus firm. Const alert and oriented x3 General Appearance: cooperative HEENT normocephalic Neck General: normal visual inspection GI soft to palpation and non-distended GI Narrative: Fundus firm Extremity normal to inspection and no calf tenderness Skin no rashes or lesions noted Neuro oriented x3 and CN's II-XII intact bilaterally Psych mental status grossly normal Assessment & Plan Assessment/Plan (1) Delivery by section: (2) Pre-eclampsia: (3) Polyhydramnios affecting : (4) Tobacco use: (5) History of IUFD: (6) Obesity affecting : (7) Gestational diabetes: PLAN: Plan POD# 2 , Doing well Routine care pain mgmt monitor VS ambulation dc home F/u with endocrinology as outpatient time spent with patient face to face on day of discharge was <30 min
--- NOTE | 2023-08-18 08:28 | DCINST_ITS ---
Discharge Instructions Diet Discharge Diet: No restrictions Activity May resume sexual activity in: 6-8 weeks Lifting Restrictions: 25 Dressing / Incision Call your doctor if your incision/area has: Continuous Slow Oozing, Sudden Increased Bleeding, Increased Pain/ Swelling, Increased Redness, Foul Smelling Discharge and Swelling at the incision site Call your doctor if you observe: Fever of 101 or Higher, Inability to urinate, Using more than 1 pad per hour and Uncontrolled pain Additional Dressing/Incision Instructions:: remove dressing at 7 days post op- if it becomes saturated prior to that time you may remove it. Let soap and water run over incision sites and dab dry. keep incision clean and dry. Follow Up Care Please Follow Up With: Melonie Beard MD When: 1-2 weeks post of incision check and again at 6 weeks post . [phone] Test Results: Test results from this visit will be discussed in further detail at your follow- up appointment, if applicable. Discharge Plan Admission Admit Date/Time: 08/15/23 10:05 Attending Provider: Yocasta Parr Primary Care Provider: Silas Alvarado Discharge Orders/Prescriptions Prescriptions: New acetaminophen 500 mg Tablet 1,000 mg PO Q6H Qty: 0 0RF ibuprofen 600 mg Tablet 600 mg PO Q6H Qty: 0 0RF Continued enoxaparin 40 mg/0.4 mL syringe subcut Q24H Patient Comments: INJECT 0.4 ML SUBCUTANEOUSLY ONCE DAILY Discontinued Humulin N NPH Insulin KwikPen 100 unit/mL (3 mL) insulin pen SUBCUT Patient Comments: INJECT 80 UNITS SUBCUTANEOUSLY ONCE DAILY AT BEDTIME insulin lispro 100 unit/mL insulin pen 80 unit SUBCUT DINNER Patient Comments: INJECT 70 UNITS ONCE DAILY WITH SUPPER aspirin [Aspirin Childrens] 81 mg tablet,chewable 1 tab PO DAILY Referrals / Follow Up: Silas Alvarado MD [Primary Care Provider] -
[2023-08-18 09:30] VITALS: BP 136/96; PULSE 100; RESP 16; TEMP 36.6; O2SAT 98
[2023-08-18] MEDS: Senna/Docusate Sodium 1 Tablet PO (09:37)
[2023-08-18 09:57] VITALS: BP 127/63
[2023-08-18 11:35] VITALS: BP 116/79; PULSE 91; RESP 16; TEMP 36.6; O2SAT 96
--- NOTE | 2023-08-18 11:44 | CASEMGMT ---
Social Work Assessment Labor and Delivery Unit Patient Address:[address] [place] [address] Phone number: [phone] Date of Referral: 08/17/23 Time of Referral:? 256 Referred By: Yocasta Parr Date of Intervention: ??08/18/23 Time of Intervention:? 1100 Reason for Referral:? mental health Sw completed chart review and acknowledged social work consult entered due to maternal mental health history. Sw presented to bedside and introduced self to mother of baby (ADIA Bo) and explained reason for sw involvement. Sw completed psychosocial assessment and provided literature and resources for MOB to review. History obtained from: medical records, MOB Household composition: Currently residing in the family home is AIDAN, RUSS and now baby. AIDAN denies any issues or concerns with their housing at this time. Patient's parent/guardian status:? ?AIDAN states that she and FOVerna have been together for 11 years after meeting on a dating pedro luis. MOB denies domestic violence or intimate partner violence with FOB. [place] baby is first child for both parents, following a 24 week loss and two miscarriages. Medical History: ?AIDAN is 32 year old female who is 4, para 0- now 1 following labor and delivery of . AIDAN received routine care with [facility] during . AIDAN presented to hospital on 08/15/23 for induction of labor. AIDAN then required and delivered baby on 08/16/23 at 37 weeks gestation. Baby girl, named Dejuan Zamora, was born weighing 6lb 8oz and her apgars were 8 and 8 at one and five minutes of life, respectfully. AIDAN is breast feeding and reports that she has been anxious about baby getting enough. AIDAN has a breast pump for home. MOB states that baby will be followed by Dr. Lopez for pediatrics. Educational Status:? Both parents graduated from high school, no college education. MOB states that neither parent struggled with reading, learning or comprehension. Financial Status: Both parents are gainfully employed outside of the home. AIDAN works for [employer] and is able to take ample amounts of time off now that baby has been born. FOB is employed at [employer] and does factory work. Supplies:??Parents have obtained all necessary baby supplies, including: car seat, safe sleep space, clothes, diapers and wipes. Childcare/Caregiver(s):? AIDAN will be the primary caregiver to baby along with RUSS whenever he is not at work. MOB states that they have not decided 100%, but they are considering MOB not returning to work after her maternity leave. Transportation:?? Both parents have their drivers license and reliable means of transportation. No barriers at this time. Programs/Agencies Involved: ???MOB denies linkage to community resources for financial assistance. Children Services/Legal Issues:??? No history of involvement. No issues or concerns warranting referral to be made at this time. Behavioral Health Issues: ??Mental Health History:?AIDAN states that RUSS has anxiety and claustrophobia, he is not prescribed any medications. MOB states that she was diagnosed with depression a long time ago, but does not feel as though she has been struggling with it. MOB denies medications. AIDAN completed [place] Depression Scale and her score was a 7. ? Substance Use History: MOB denies substance use prior to and during aside from tobacco. ?? Family History:?MOB denies family history of addiction or significant mental health diagnoses. ? Drug Screens: ??No urine screens observed during chart review. Family/Social Stressors:? AIDAN denies stressors or concerns at this time. Support Systems: AIDAN reports that both sets of families are supportive. AIDAN states that her family resides an hour away but they still make time every week to see them. MOB states that paternal grandparents are supportive, along with her sister in laws who recently had babies. Depression/Shaken Baby/Safe Sleeping:? Sw educated MOB on signs and symptoms of baby blues and depression and anxiety. Sw explained to AIDAN that the emotions she is already experiencing probably are a result of the losses that she has experienced and possibly some baby blues. Sw encouraged MOB to be mindful of her mental health and any issues that she continues to experience. Sw encouraged MOB to talk to her OBGYN should her symptoms continue. MOB expressed understanding and agreement. Sw also educated MOB on shaken baby prevention and ABCs of safe sleep. MOB expressed understanding. ASSESSMENT:? MOB and baby admitted following labor and delivery of . MOB observed to provide loving and appropriate hands on care of baby. MOB made and maintained good eye contact throughout completion of psychosocial assessment. MOB has obtained all necessary baby supplies and has natural supports in place. MOB receptive to sw involvement and support and appreciative of resources sw provided. PLAN:? MOB and baby to be discharged when medically ready. ?No other services requested or indicated. Suraj Snell, AUTOMATION DESIGN ENGINEER, WET CHAR CONVEYOR TENDER
[2023-08-18] MEDS: Enoxaparin 40 MG/0.4 ML Syringe SC (11:57)
[2023-08-18 15:48] LABS: Bedside Glucose 113 mg/dL (74-106)
--- NOTE | 2023-08-20 10:29 | PCM.DC.BLA ---
Discharge Summary Date of Admission: 08/15/23 Date of Discharge: 08/18/23 Summary: pt admitted for IOL due to PRE E, GDMA, OBESITY at 37 weeks, Had failed IOL and underwent Primary C/S by Dr. Parr without complications. Pt was discharged home on POD#2 in stable condition. Meaningful Use Info Meaningful Use Diagnoses (Choose all that apply): None applicable Discharge Plan Admission Admit Date/Time: 08/15/23 10:05 Attending Provider: Yocasta Parr Primary Care Provider: Silas Alvarado Instructions Patient Instructions: After a Discharge Orders/Prescriptions Prescriptions: New acetaminophen 500 mg Tablet 1,000 mg PO Q6H Qty: 0 0RF ibuprofen 600 mg Tablet 600 mg PO Q6H Qty: 0 0RF Continued enoxaparin 40 mg/0.4 mL syringe subcut Q24H Patient Comments: INJECT 0.4 ML SUBCUTANEOUSLY ONCE DAILY Discontinued Humulin N NPH Insulin KwikPen 100 unit/mL (3 mL) insulin pen SUBCUT Patient Comments: INJECT 80 UNITS SUBCUTANEOUSLY ONCE DAILY AT BEDTIME insulin lispro 100 unit/mL insulin pen 80 unit SUBCUT DINNER Patient Comments: INJECT 70 UNITS ONCE DAILY WITH SUPPER aspirin [Aspirin Childrens] 81 mg tablet,chewable 1 tab PO DAILY Referrals / Follow Up: Silas Avlarado MD [Primary Care Provider] - Disposition Disposition (needs filled in before D/C Order can be placed): Home, Self Care
--- NOTE | 2023-08-22 16:56 | NURSING ---
F/Up Questions asked by Joanne at visit. Pt reports having a great experience at , and loved her nurse Naila. Pt. came in last night for increased BP and symptomatic, but was cleared by Pete. No questions or concerns.
== END 2023-08-18 16:05 | disposition home or self-care (01) | DRG 787 ==
PROVIDERS: Admitting Provider Obstetrics & Gynecology; PCP Family Medicine; Visit Provider Obstetrics & Gynecology
DX: O61.0 Failed medical induction of labor (principal); E72.12 Methylenetetrahydrofolate reductase deficiency; O75.2 Pyrexia during labor, not elsewhere classified; O14.94 Unspecified pre-eclampsia, complicating childbirth; F17.210 Nicotine dependence, cigarettes, uncomplicated; O24.424 Gestational diabetes mellitus in childbirth, insulin controlled; O99.214 Obesity complicating childbirth; O62.0 Primary inadequate contractions; O40.3XX0 Polyhydramnios, third trimester, not applicable or unspecified; O75.89 Other specified complications of labor and delivery; Z37.0 Single live birth; O99.334 Smoking (tobacco) complicating childbirth; O36.8130 Decreased fetal movements, third trimester, not applicable or unspecified; Z3A.37 37 weeks gestation of pregnancy; Z79.01 Long term (current) use of anticoagulants; Z79.82 Long term (current) use of aspirin; Z87.59 Personal history of other complications of pregnancy, childbirth and the puerperium
CPT/HCPCS: 59025; 59050; 80053; 82570; 82962; 84156; 85025; 85027; 86780; 86850; 86900; 86901; 87491; 87591; 99221; 99406; J7120; A4216; G0378; J2405

== ENCOUNTER 2023-08-20 19:27 | Outpatient (CLI) | payer BC, SELFPAY ==
[2023-08-20] VITALS (13 sets, daily range): BP systolic 121–157; BP diastolic 77–97; PULSE 78–88; TEMP 37; BMI 41.1
[2023-08-20 21:05] LABS: Hematocrit 30.9 % (37-47); Hemoglobin 10.2 g/dL (12.0-15.0); Mean Corpuscular Hgb 31.3 pg (27.0-32.0); Mean Corpuscular Volume 94.8 fL (81-99); Mean Platelet Vol. 10.7 fl (6.2-12.0); Platelet Count 264 K/mm3 (150-450); RBC Distribution Width CV 13.1 % (11.6-14.6); RBC Distribution Width SD 45.1 fl (35.1-43.9); Red Blood Count 3.26 M/mm3 (4.2-5.4); White Blood Count 7.6 K/mm3 (4.4-11.0)
[2023-08-20 21:31] LABS: Creatinine, Serum 0.66 mg/dL (0.55-1.02); EST Glomerular Filtration Rate 111 mL/min (>60); Est Glom Filt Rate - Afr Amer 135 mL/min (>60)
--- NOTE | 2023-08-21 12:15 | OB.TRI.NOTE ---
HPI - General General Date of Admission: 08/20/23 Date of Service: 08/20/23 Chief Complaint: Fever and vaginal bleeding HPI Narrative LEIDA MURDOCK, is a 32 F who presents status post on 08/16/2023 for arrest of descent and dilation. She was induced at 37 weeks for gestational diabetes, maternal obesity and history of prior demise. Patient states she was doing well at home her pain is getting better day by day. She is working on breast-feeding the has a low milk supply but no breast pain or tenderness. She states she felt febrile at home. Then passed 2 large clots approximately 78 cm in diameter per her report. Vaginal bleeding then slowed down. Patient came to the emergency room to be evaluated. Had an initially elevated blood pressure up there and was sent down to labor and delivery for preeclampsia evaluation. Patient denies any nausea vomiting diarrhea or constipation. She denies any dysuria. She denies any incisional drainage and her bandages still on. She denies any chest pain cough fevers or shortness of breath. She has some lower extremity edema but no redness or pain in her legs. [facility] Medical History (Updated 08/21/23 @ 12:[address] Jaye Carey MD) Arthritis Gastric reflux Gestational diabetes History of demise, not currently History of IBS History of stress test Kidney stones Migraine headache Restless legs Smoker Stillborn, normal Home Medications enoxaparin 40 mg/0.4 mL subcutaneous syringe mg subcut Q24H blood clots 08/15/23 [History Last Taken 08/20/23] acetaminophen 500 mg tablet 1,000 mg (2 x 500 mg) PO Q6H #0 tabs 08/18/23 [Rx Last Taken 08/20/23] ibuprofen 600 mg tablet 600 mg PO Q6H #0 tabs 08/18/23 [Rx Last Taken 08/20/23] Allergy/AdvReac Type Severity Reaction Status Date / Time No Known Allergies Allergy Verified 08/20/23 21:46 Family History Other Blood clot associated with vein wall inflammation Heart disease Surgical History (Updated 08/16/23 @ 22:[address] Yocasta Parr DO) History of gynecologic surgery History of tonsillectomy and adenoidectomy Hx of colonoscopy Hx of dilation and curettage Hx of laparoscopy Hx of wisdom tooth extraction Social History Smoking Status: Current every day smoker tobacco type: cigarettes History 4 Elective abortions Hx Para 1 Spontaneous abortions Hx # Term Pregnancies Ectopic pregnancies Hx # Pregnancies Multiple births # of living children 1 Physical Exam Narrative Awake, alert, no acute distress, breathing easily. Sitting up and breast-feeding the infant and I arrived. Breast symmetrical and no erythema or tenderness Bandages removed from the incision is clean dry intact. Uterus is firm and below the umbilicus and appropriately tender. There is no erythema around her incision. There is small amount of blood on her pad since she passed the clot several hours ago. Average lochia without foul odor. No purulent discharge. Extremities are symmetrical with 2+ lower extremity edema, 2+ DTRs and no clonus, negative Homans' sign. No erythema or tenderness in her lower extremities or calfs Assessment & Plan (1) Fever: PLAN: Patient reported fever at home. Afebrile here. No evidence of infection on exam. Normal white blood cell count. Reassured. Monitor at home and return or call if questions or concerns. Routine postop care reviewed. Has follow-up appointment in the office next week. (2) Elevated blood pressure reading without diagnosis of hypertension: PLAN: Labs reviewed, no evidence of preeclampsia. Call or return for signs or symptoms of severe preeclampsia patient is comfortable with this plan. PLAN: Plan Increased vaginal bleeding today. Reassured. Brief transabdominal ultrasound was done which showed a bright white endometrial stripe. Discussed with patient bleeding expectations and passing some small clots can be normal as long as the bleeding is average afterwards. Patient is comfortable with plan and DC home
== END 2023-08-20 21:45 | disposition home or self-care (01) ==
LOC: WPOUT 19:36 → WP 19:37
PROVIDERS: PCP Family Medicine; Visit Provider Obstetrics & Gynecology
DX: O86.4 Pyrexia of unknown origin following delivery (principal); O99.893 Other specified diseases and conditions complicating puerperium; R03.0 Elevated blood-pressure reading, without diagnosis of hypertension; O99.335 Smoking (tobacco) complicating the puerperium; F17.210 Nicotine dependence, cigarettes, uncomplicated
CPT/HCPCS: 36415; 76815; 82565; 85027; 99221; G0378

== ENCOUNTER 2023-11-30 19:26 | Emergency (ER) | payer SELFPAY ==
[2023-11-30 19:27] VITALS: BP 161/90; PULSE 95; RESP 16; TEMP 36.6; O2SAT 96; BMI 38.4
--- NOTE | 2023-11-30 19:30 | RAD_ITS ---
EXAM: XR RIGHT ANKLE COMPLETE, 3 OR MORE VIEWS CLINICAL INDICATION: injury TECHNIQUE: Frontal, lateral and oblique views of the right ankle. COMPARISON: No relevant prior studies available. FINDINGS: BONES/JOINTS: Unremarkable. No acute fracture. No subluxation. Normal alignment. Preservation of the joint space. No sclerotic or destructive changes observed. SOFT TISSUES: Soft tissue swelling around the ankle. Fracture of the tip of the distal fibula. No radiopaque foreign body. RAD/Ankle min 3 Views IMPRESSION: Soft tissue swelling around the ankle. Fracture of the tip of the distal fibula. Electronically Signed: Nba Quinteros MD at 20:02 EDT ,
--- NOTE | 2023-11-30 20:57 | ED.VIS.LOWEX ---
HPI History of Present Illness Chief Complaint: Lower Extremity Injury Informant: patient Narrative Narrative: Patient is a 33-year-old female presenting with abrasions and right ankle pain after mechanical fall. She was taking a step down on a concrete porch when her right ankle inverted. She fell to her left and scraped her left arm and left leg as well. This happened around 3 PM today. She continued of pain despite taking Tylenol so she came to be evaluated. Does have some mild tingling to her right foot. No other complaints or concerns reported at this time. She did not hit her head. No other injuries reported. Tetanus Immunization: <5 years [facility] Medical History Stillborn, normal Gestational diabetes Arthritis Kidney stones Restless legs Migraine headache History of IBS Gastric reflux Smoker History of stress test History of demise, not currently Home Medications ?Medication ?Instructions ?Recorded ?Last Taken ?Type enoxaparin 40 mg/0.4 mL mg subcut Q24H blood clots 08/15/23 08/20/23 History subcutaneous syringe acetaminophen 500 mg tablet 1,000 mg (2 x 500 mg) PO Q6H #0 08/18/23 08/20/23 Rx tabs ibuprofen 600 mg tablet 600 mg PO Q6H #0 tabs 08/18/23 08/20/23 Rx hydrocodone-acetaminophen 5-325mg 1 tab PO Q6H PRN PRN Pain 3 days 11/30/23 Unknown Rx 5mg-325mg #12 TABLETS ibuprofen 600 mg tablet 600 mg PO Q6H PRN PRN pain #20 11/30/23 Unknown Rx TABLETS Allergy/AdvReac Type Severity Reaction Status Date / Time No Known Allergies Allergy Verified 11/30/23 19:29 Family History Other Blood clot associated with vein wall inflammation Heart disease Surgical History History of gynecologic surgery Hx of wisdom tooth extraction Hx of colonoscopy Hx of dilation and curettage Hx of laparoscopy History of tonsillectomy and adenoidectomy Social History Smoking Status: Current every day smoker tobacco type: cigarettes ROS ROS ED Constitutional Constitutional ED: Denies chills or fever(s) Gastrointestinal Gastrointestinal: Denies nausea or vomiting Musculoskeletal Musculoskeletal: Reports other Details: Right foot and ankle pain Integumentary Reports Abrasions and other Details: Bruising to left leg Neurologic Neurologic: Reports paresthesias RLE (Right foot) Psychiatric Psychiatric: Denies anxiety Hematologic/Lymphatic Hematologic/Lymphatic: Denies easy bleeding or easy bruising EXAM Physical Exam Const Vital Signs: 11/30/23 19:27 11/30/23 21:37 Temperature 97.8 F 97.2 F L Temperature Source Temporal Pulse Rate 95 73 Respiratory Rate 16 16 Blood Pressure 161/90 H 126/84 H Blood Pressure Mean 113 98 Pulse Ox 96 95 Oxygen Delivery Method Room Air Positive well nourished and well developed General Appearance ED: well developed and NAD HEENT Reports moist mucous membranes Resp normal respiratory effort Cardio regular rate and regular rhythm Extremity Extremity Narrative: Swelling and tenderness of the right lateral malleolus. Decreased range of motion of the ankle secondary to pain. Slight edema noted of the right foot. 2+ DP pulse on the right foot with brisk capillary refill present. Patient is able to wiggle her toes. No tenderness palpation over the right fibular head. No deformity of the other extremities appreciated. Mild tenderness palpation of the left lateral calf. Neuro oriented x3, moves all extremities and no sensory deficits noted Psych mental status grossly normal Skin Skin Narrative: Superficial abrasions to the left forearm and left lateral knee MDM MDM MDM Narrative Medical decision making narrative: Patient evaluated for injuries associate with the fall. She has swelling and pain mostly of her right ankle and scattered abrasions on her left side. She is currently breast-feeding. Protocol x-ray obtained reviewed by myself as well as radiology shows fracture of the tip of the distal fibula. Patient be placed in a walking boot. She given Motrin 600 mg in the emergency room. Discussed risk and benefits of [place] for further pain control as she is breast-feeding. I discussed that if she takes it as prescribed should be fine however she should try to manage her pain with ibuprofen and Tylenol first. She is agreeable with this. Patient is discharged home with outpatient podiatry referral. Given return precautions. Discharged home in stable condition. Radiography Diagnostic Testing: Clinical Impression(s) from Imaging Studies Ankle X-Ray 11/30/23 19:30 IMPRESSION: Soft tissue swelling around the ankle. Fracture of the tip of the distal fibula. Electronically Signed: Nba Quinteros MD at 20:02 EDT Reading Location ID and State: [facility] / [place] , Service support , Discharge Plan Triage Chief Complaint: Lower Extremity Injury ED Provider: Dianne Currie Dx/Rx/DC Orders Clinical Impression: Closed fracture of distal end of right fibula, Multiple abrasions Instructions: ED Ankle Fracture, Distal Fibula Prescriptions: New hydrocodone-acetaminophen 5-325 mg tablet 1 tab PO Q6H PRN PRN (Reason: Pain) 3 Days Qty: 12 0RF ibuprofen 600 mg tablet 600 mg PO Q6H PRN PRN (Reason: pain) Qty: 20 0RF No Action enoxaparin 40 mg/0.4 mL syringe subcut Q24H Patient Comments: INJECT 0.4 ML SUBCUTANEOUSLY ONCE DAILY acetaminophen 500 mg Tablet 1,000 mg PO Q6H Qty: 0 0RF ibuprofen 600 mg Tablet 600 mg PO Q6H Qty: 0 0RF Primary Care Provider: Silas Alvarado Referrals: Silas Alvarado MD [Primary Care Provider] - Derrek Quijano DPM [Med Staff - Active Staff] - 3-5 Days Activity Restrictions/Additional Instructions: Alternate ibuprofen and Tylenol for pain. If needed you may take [place] (hydrocodone/acetaminophen) which was prescribed for you for breakthrough pain. It should be safe to take with breast-feeding but you should take it as sparingly as possible. Print Language: Danish Disposition Disposition: Home, Self Care Discharge Date/Time: 11/30/23 22:07
[2023-11-30] MEDS: Ibuprofen 600 MG Tablet PO (21:36)
[2023-11-30 21:37] VITALS: BP 126/84; PULSE 73; RESP 16; TEMP 36.2; O2SAT 95
== END 2023-11-30 22:07 | disposition home or self-care (01) ==
PROVIDERS: Emergency Provider Emergency Medicine; PCP Family Medicine; Visit Provider Emergency Medicine
DX: S82.831A Other fracture of upper and lower end of right fibula, initial encounter for closed fracture (principal); W10.9XXA Fall (on) (from) unspecified stairs and steps, initial encounter; S90.511A Abrasion, right ankle, initial encounter; F17.210 Nicotine dependence, cigarettes, uncomplicated; Y93.01 Activity, walking, marching and hiking; Y92.89 Other specified places as the place of occurrence of the external cause
CPT/HCPCS: 73610; 99283